=== PATIENT | female | born 1940 | race Caucasian/White ===

== ENCOUNTER 2019-05-31 09:46 | Observation (INO) | payer OTHER ==
[2019-05-31] MEDS ORDERED: AZITHROMYCIN 500 MG/250 ML BAG IV SCH (11:00)
[2019-05-31 11:02] LABS: Basophils % 0.4 % (0-1.3); Eosinophils % 0.6 % (0-4.4); Hematocrit 43.7 % (36.0-45.0); Lymphocytes % 9.5 % (15.3-44.8); MPV 11.1 fL (7.6-11.3); RBC Red Blood Cell Count 4.86 M/uL (3.86-4.86)
[2019-05-31 11:06] LABS: Protime INR 1.08
[2019-05-31] MEDS ORDERED: IPRATROPIUM BROM 0.5MG/2.5ML ONE (11:09)
[2019-05-31] MEDS ORDERED: LEVALBUTEROL 1.25 MG/3 ML NEB ONE (11:09)
[2019-05-31] MEDS ORDERED: NA CHLORIDE 0.9% 1,000 ML ONE (11:09)
[2019-05-31] MEDS ORDERED: METHYLPREDNISOLONE 125 MG INJ ONE (11:09)
[2019-05-31 11:13] LABS: ALT/SGPT 48 U/L (12-78); AST/SGOT 48 U/L (15-37); Albumin 3.7 g/dL (3.4-5.0); Alkaline Phosphatase 100 U/L (45-117); BUN Blood Urea Nitrogen 12 mg/dL (7-18); Bicarbonate 29 mmol/L (21-32); Bilirubin Direct 0.2 mg/dL (0-0.2); Bilirubin Total 0.9 mg/dL (0.2-1.0); CKMB Creatine Kinase MB < 1.0 ng/mL (0.3-3.6); Creatine Phosphokinase 119 U/L (26-192); Glucose Level 210 mg/dL (74-106); Lipase 80 U/L (73-393); Magnesium 1.9 mg/dL (1.8-2.4); NT PRO-BNP 389 pg/mL (<450); Potassium 3.6 mmol/L (3.5-5.1); Protein, Total 7.2 g/dL (6.4-8.2); Sodium Level 139 mmol/L (136-145); Troponin (Emerg Dept Use Only) < 0.02 ng/mL (0.0-0.045)
[2019-05-31] MEDS ORDERED: CEFTRIAXONE/SWI 1gm 1 GM/10 ML SYR ONE (12:03)
--- NOTE | 2019-05-31 12:25 | RAD REPORT ---
EXAM DESCRIPTION: RAD - Chest Single View - 05/31/2019 11:11 am CLINICAL HISTORY: COUGH Chest pain. COMPARISON: <Comparisons> FINDINGS: Portable technique limits examination quality. The lungs are grossly clear. The heart is normal in size. No displaced fractures. IMPRESSION: No acute intrathoracic process suspected.
--- NOTE | 2019-05-31 13:09 | RAD REPORT ---
EXAM DESCRIPTION: CT - Chest For Pe Angio - 05/31/2019 12:48 pm CLINICAL HISTORY: Chest pain. COUGH COMPARISON: No comparisons TECHNIQUE: CT angiogram of the pulmonary arteries was performed with MIP. All CT scans are performed using dose optimization technique as appropriate and may include automated exposure control or mA/KV adjustment according to patient size. FINDINGS: No evidence of pulmonary thromboembolism. No acute aortic finding demonstrated. The lungs are mildly emphysematous but clear. Small hiatal hernia is seen. No significant pericardial or pleural fluid. No concerning bony finding. IMPRESSION: No evidence of pulmonary thromboembolism. Mild COPD.
--- NOTE | 2019-05-31 13:35 | EDPHYS ---
Physician Documentation [facility] Name: Harmony Rodriguez Age: 79 yrs Sex: Female : 1940 Arrival Date: 05/31/2019 Time: 09:49 Bed 6 Private MD: SRINIVAS ESPINO ED Physician Nohemi Cho HPI: 05/31 10:21 This 79 yrs old Female presents to ER via Wheelchair with complaints of ma2 Breathing Difficulty. 10:21 The patient has shortness of breath with light activity. Onset: The symptoms/episode ma2 began/occurred gradually, 2 day(s) ago. Duration: The symptoms are continuous. Associated signs and symptoms: Pertinent positives: productive cough, Pertinent negatives: chest pain, diaphoresis, dizziness, fever, hemoptysis, loss of consciousness. Severity of symptoms: At their worst the symptoms were moderate in the emergency department the symptoms are unchanged. The patient has not experienced similar symptoms in the past. Historical: - Allergies: 10:07 Codeine; iw 10:07 PENICILLINS; iw 10:07 Talwin; iw - Home Meds: 10:07 tramadol 50 mg Oral tab 1 tab every 4-6 hours [Active]; diclofenac sodium 50 mg oral iw TbEC as needed [Active]; famotidine 20 mg Oral tab [Active]; pravastatin 40 mg oral tab 1 tab once daily [Active]; metoprolol tartrate-hydrochlorothiazide oral 25 mg- 37.5 mg oral once daily [Active]; tizanidine 4 mg oral cap 3 times per day [Active]; Farxiga 5 mg oral tab 1 tab once daily [Active]; alpha lipoic acid 200 mg oral cap daily [Active]; - PMHx: 10:07 Diabetes - NIDDM; heart disease; Hypertension; iw - PSHx: 10:07 Tonsillectomy; Hysterectomy; Pulmonary Embolism after surgery; Right hip replacement; iw Back surgery; - Immunization history:: Adult Immunizations up to date. - Social history:: Smoking status: Patient/guardian denies using tobacco, Patient/guardian denies using alcohol, street drugs, The patient lives with family. - Ebola Screening: : Patient negative for fever greater than or equal to 101.5 degrees Fahrenheit, and additional compatible Ebola Virus Disease symptoms Patient denies exposure to infectious person Patient denies travel to an Ebola-affected area in the 21 days before illness onset No symptoms or risks identified at this time. - Family history:: not pertinent. ROS: 10:21 Constitutional: Negative for fever, chills, and weight loss. ma2 10:21 All other systems are negative. Exam: 10:21 Constitutional: This is a well developed, well nourished patient who is awake, alert, ma2 and in no acute distress. Head/Face: Normocephalic, atraumatic. Eyes: Pupils equal round and reactive to light, extra-ocular motions intact. Lids and lashes normal. Conjunctiva and sclera are non-icteric and not injected. Cornea within normal limits. Periorbital areas with no swelling, redness, or edema. ENT: Nares patent. No nasal discharge, no septal abnormalities noted. Tympanic membranes are normal and external auditory canals are clear. Oropharynx with no redness, swelling, or masses, exudates, or evidence of obstruction, uvula midline. Mucous membranes moist. Neck: Trachea midline, no thyromegaly or masses palpated, and no cervical lymphadenopathy. Supple, full range of motion without nuchal rigidity, or vertebral point tenderness. No Meningismus. Chest/axilla: Normal chest wall appearance and motion. Nontender with no deformity. No lesions are appreciated. Cardiovascular: Regular rate and rhythm with a normal S1 and S2. No gallops, murmurs, or rubs. Normal PMI, no JVD. No pulse deficits. Abdomen/GI: Soft, non-tender, with normal bowel sounds. No distension or tympany. No guarding or rebound. No evidence of tenderness throughout. 10:21 Respiratory: mild respiratory distress is noted, Respirations: normal, Breath sounds: rales, that are mild, wheezing: Vital Signs: 10:07 BP 173 / 85; Pulse 113; Resp 20 S; Temp 99.3(O); Pulse Ox 97% on R/A; Weight 86.18 kg; iw Height 5 ft. 5 in. (165.10 cm); Pain 8/10; 11:36 BP 131 / 67; Pulse 105; Resp 18; Pulse Ox 99% on Nebulizer Mask; ph 12:30 BP 147 / 86; Pulse 97; Resp 18; Pulse Ox 97% on R/A; ph 13:42 BP 128 / 98; Pulse 105; Resp 20; Pulse Ox 99% on R/A; ph 15:13 BP 140 / 63; Pulse 95; Resp 18; Temp 98.7; Pulse Ox 98% on R/A; ph 10:07 Body Mass Index 31.62 (86.18 kg, 165.10 cm) iw MDM: 10:01 Patient medically screened. il2 10:21 Differential diagnosis: Anemia Anxiety Reaction Bronchitis pneumonia, reactive airway ma2 disease. Antibiotic administration: The patient is discharged and will get outpatient antibiotics. 13:33 Data reviewed: vital signs, nurses notes. Counseling: I had a detailed discussion with [facility] the patient and/or guardian regarding: the historical points, exam findings, and any diagnostic results supporting the discharge/admit diagnosis, the presence of at least one elevated blood pressure reading (>120/80) during this emergency department visit, the need for outpatient follow up. ED course: discussed with dr. arriaza . ED course: will admit for possible pneumonia, cough and tachycardia . 05/31 10:21 Order name: Blood Culture Adult (2) [facility] 05/31 10:21 Order name: BMP [facility] 05/31 10:21 Order name: CBC with Diff [facility] 05/31 10:21 Order name: Ckmb [facility] 05/31 10:21 Order name: CPK [facility] 05/31 10:21 Order name: D-Dimer [facility] 05/31 10:21 Order name: Hepatic Function; Complete Time: 11:30 [facility] 05/31 10:21 Order name: Lipase; Complete Time: 11:30 [facility] 05/31 10:21 Order name: Magnesium; Complete Time: 11:30 [facility] 05/31 10:21 Order name: NT PRO-BNP; Complete Time: 11:30 [facility] 05/31 10:21 Order name: PT-INR; Complete Time: 11:30 [facility] 05/31 10:21 Order name: Ptt, Activated; Complete Time: 11:30 [facility] 05/31 10:21 Order name: Troponin (emerg Dept Use Only); Complete Time: 11:30 [facility] 05/31 10:23 Order name: Blood Culture [facility] 05/31 10:21 Order name: XRAY CXR (1 view); Complete Time: 12:45 [facility] 05/31 10:21 Order name: EKG; Complete Time: 10:24 ma2 05/31 10:23 Order name: Basic Metabolic Panel; Complete Time: 11:30 EDMS 05/31 10:23 Order name: CBC with Automated Diff; Complete Time: 11:30 EDMS 05/31 10:23 Order name: CKMB Creatine Kinase MB; Complete Time: 11:30 EDMS 05/31 10:23 Order name: Creatine Phosphokinase; Complete Time: 11:30 EDMS 05/31 10:23 Order name: D-Dimer; Complete Time: 11:30 EDMS 05/31 12:24 Order name: CT Chest For PE Angio; Complete Time: 13:11 ma2 05/31 14:04 Order name: Regular EDMS 05/31 10:21 Order name: Cardiac monitoring; Complete Time: 10:49 ma2 05/31 10:21 Order name: EKG - Nurse/Tech; Complete Time: 12:40 ma2 05/31 10:21 Order name: IV Saline Lock; Complete Time: 10:49 ma2 05/31 10:21 Order name: Labs collected and sent; Complete Time: 10:49 ma2 05/31 10:21 Order name: O2 Per Protocol; Complete Time: 10:49 ma2 05/31 10:21 Order name: O2 Sat Monitoring; Complete Time: 10:49 ma2 Administered Medications: 11:17 Drug: SOLU-Medrol 125 mg Route: IVP; Site: right antecubital; ph 12:38 Follow up: Response: No adverse reaction ph 11:17 Drug: AtroVENT Aerosol 0.5 mg Route: Inhalation; ph 11:18 Drug: Xopenex 1.25 mg Route: Inhalation; ph 12:39 Follow up: Response: No adverse reaction ph 11:19 Drug: NS 0.9% 1000 ml Route: IV; Rate: 1 bolus; Site: right antecubital; ph 12:30 Follow up: Response: No adverse reaction; IV Status: Completed infusion; IV Intake: ph 1000ml 11:30 Drug: AtroVENT Aerosol 0.5 mg Route: Inhalation; ph 11:50 Drug: AtroVENT Aerosol 0.5 mg Route: Inhalation; ph 12:36 Follow up: Response: No adverse reaction ph 11:55 Drug: Rocephin 1 grams Route: IV; Rate: calculated rate; Site: right antecubital; ph 12:10 Follow up: Response: No adverse reaction; IV Status: Completed infusion ph 13:35 Drug: AZITHromycin 500 mg Route: IVPB; Infused Over: 1 hrs; Site: right antecubital; ph 14:40 Follow up: Response: No adverse reaction; IV Status: Completed infusion ph 19:11 Not Given (Physician Discretion): Lovenox 80 mg Sub-Q once ph Disposition: 05/31/19 13:34 Hospitalization ordered by Nirmal Sweeney for Observation. Preliminary diagnosis are Pneumonia due to other specified infectious organisms, Tachycardia, unspecified. - Bed requested for Telemetry/MedSurg (observation). - Status is Observation. ph - Condition is Stable. - Problem is new. - Symptoms are unchanged. UTI on Admission? No Signatures: Dispatcher [employer] EDMS Cathy Haskins RN RN Nathalia Rodrigues RN RN Nohemi Cho MD MD ma2 Botello, Elizabeth eb Corrections: (The following items were deleted from the chart) 13:34 13:34 Hospitalization Ordered by Nirmal Sweeney MD for Observation. Preliminary ma2 diagnosis is Pneumonia due to other specified infectious organisms; Tachycardia, unspecified. Bed requested for Telemetry/MedSurg (observation). Status is Observation. Condition is Stable. Problem is new. Symptoms are unchanged. UTI on Admission? No. ma2 15:19 13:34 05/31/2019 13:34 Hospitalization Ordered by Nirmal Sweeney MD for Observation. eb Preliminary diagnosis is Pneumonia due to other specified infectious organisms; Tachycardia, unspecified. Bed requested for Telemetry/MedSurg (observation). Status is Observation. Condition is Stable. Problem is new. Symptoms are unchanged. UTI on Admission? No. ma2 15:47 15:19 05/31/2019 13:34 Hospitalization Ordered by Nirmal Sweeney MD for Observation. ph Preliminary diagnosis is Pneumonia due to other specified infectious organisms; Tachycardia, unspecified. Bed requested for Telemetry/MedSurg (observation). Status is Observation. Condition is Stable. Problem is new. Symptoms are unchanged. UTI on Admission? No. eb
--- NOTE | 2019-05-31 13:35 | ER ---
Nurse's Notes [facility] Name: Harmony Rodriguez Age: 79 yrs Sex: Female : 1940 Arrival Date: 05/31/2019 Time: 09:49 Bed 6 Private MD: SRINIVAS ESPINO Diagnosis: Pneumonia due to other specified infectious organisms;Tachycardia, unspecified Presentation: 05/31 10:02 Presenting complaint: Patient states: been feeling bad since Sunday, c/o nasal iw congestion, headache, low grade fever, productive cough, SOB started last night, also c/o pain to chest and back when coughing. Transition of care: patient was not received from another setting of care. Onset of symptoms was May 28, 2019. Risk Assessment: Do you want to hurt yourself or someone else? Patient reports no desire to harm self or others. Initial Sepsis Screen: Does the patient meet any 2 criteria? HR > 90 bpm. Does the patient have a suspected source of infection?. Care prior to arrival: None. 10:02 Method Of Arrival: Wheelchair iw 10:02 Acuity: NOEL 3 iw Historical: - Allergies: 10:07 Codeine; iw 10:07 PENICILLINS; iw 10:07 Talwin; iw - Home Meds: 10:07 tramadol 50 mg Oral tab 1 tab every 4-6 hours [Active]; diclofenac sodium 50 mg oral iw TbEC as needed [Active]; famotidine 20 mg Oral tab [Active]; pravastatin 40 mg oral tab 1 tab once daily [Active]; metoprolol tartrate-hydrochlorothiazide oral 25 mg- 37.5 mg oral once daily [Active]; tizanidine 4 mg oral cap 3 times per day [Active]; Farxiga 5 mg oral tab 1 tab once daily [Active]; alpha lipoic acid 200 mg oral cap daily [Active]; - PMHx: 10:07 Diabetes - NIDDM; heart disease; Hypertension; iw - PSHx: 10:07 Tonsillectomy; Hysterectomy; Pulmonary Embolism after surgery; Right hip replacement; iw Back surgery; - Immunization history:: Adult Immunizations up to date. - Social history:: Smoking status: Patient/guardian denies using tobacco, Patient/guardian denies using alcohol, street drugs, The patient lives with family. - Ebola Screening: : Patient negative for fever greater than or equal to 101.5 degrees Fahrenheit, and additional compatible Ebola Virus Disease symptoms Patient denies exposure to infectious person Patient denies travel to an Ebola-affected area in the 21 days before illness onset No symptoms or risks identified at this time. - Family history:: not pertinent. Screenin:47 Abuse screen: Denies threats or abuse. Denies injuries from another. Nutritional ph screening: No deficits noted. Tuberculosis screening: No symptoms or risk factors identified. Fall Risk None identified. Assessment: 10:30 General: Appears in no apparent distress. comfortable, well groomed, Behavior is calm, ph cooperative, appropriate for age, Denies fever. Pain: Denies pain. Neuro: Level of Consciousness is awake, alert, obeys commands, Oriented to person, place, time, situation. Cardiovascular: Reports shortness of breath, Denies chest pain, nausea, Capillary refill < 3 seconds in bilateral fingers Patient's skin is warm and dry. Rhythm is irregular. Respiratory: Reports shortness of breath at rest Airway is patent Respiratory effort is even, unlabored, Respiratory pattern is regular, symmetrical, Breath sounds are clear bilaterally. GI: No signs and/or symptoms were reported involving the gastrointestinal system. Derm: Skin is intact, is healthy with good turgor, Skin is pink, warm \T\ dry. Musculoskeletal: Circulation, motion, and sensation intact. Range of motion: intact in all extremities. 11:30 Reassessment: Patient appears in no apparent distress at this time. Patient and/or ph family updated on plan of care and expected duration. Pain level reassessed. Patient is alert, oriented x 3, equal unlabored respirations, skin warm/dry/pink. Patient states symptoms have improved. 12:30 Reassessment: Patient appears in no apparent distress at this time. No changes from previously documented assessment. Patient and/or family updated on plan of care and expected duration. Pain level reassessed. Patient is alert, oriented x 3, equal unlabored respirations, skin warm/dry/pink. 13:41 Reassessment: Patient appears in no apparent distress at this time. Patient and/or ph family updated on plan of care and expected duration. Pain level reassessed. Patient is alert, oriented x 3, equal unlabored respirations, skin warm/dry/pink. Dr Farias at bedside to speak w/ pt. 14:23 Reassessment: Patient appears in no apparent distress at this time. Patient is alert, ca1 oriented x 3, equal unlabored respirations, skin warm/dry/pink. Ambulated to restroom with steady gait. Pt tolerated well. No c/o of shortness of breath. 14:35 Reassessment: Patient appears in no apparent distress at this time. Patient and/or ph family updated on plan of care and expected duration. Pain level reassessed. Patient is alert, oriented x 3, equal unlabored respirations, skin warm/dry/pink. Report called to MAGNOLIA Waggoner, pt to be taken to 4th floor via wheelchair. Vital Signs: 10:07 BP 173 / 85; Pulse 113; Resp 20 S; Temp 99.3(O); Pulse Ox 97% on R/A; Weight 86.18 kg; iw Height 5 ft. 5 in. (165.10 cm); Pain 8/10; 11:36 BP 131 / 67; Pulse 105; Resp 18; Pulse Ox 99% on Nebulizer Mask; ph 12:30 BP 147 / 86; Pulse 97; Resp 18; Pulse Ox 97% on R/A; ph 13:42 BP 128 / 98; Pulse 105; Resp 20; Pulse Ox 99% on R/A; ph 15:13 BP 140 / 63; Pulse 95; Resp 18; Temp 98.7; Pulse Ox 98% on R/A; ph 10:07 Body Mass Index 31.62 (86.18 kg, 165.10 cm) iw ED Course: 09:49 Patient arrived in ED. mr 09:49 OOT, OOT is Private Physician. mr 09:52 Arcadio Pineda, MAGNOLIA is Primary Nurse. bp 10:01 Nohemi Cho MD is Attending Physician. ma2 10:04 Triage completed. iw 10:07 Arm band placed on. iw 10:40 Initial lab(s) drawn, by me, sent to lab. First set of blood cultures drawn by me. ph Inserted saline lock: 20 gauge in right antecubital area, using aseptic technique. Blood collected. 10:48 Patient has correct armband on for positive identification. Placed in gown. Bed in low ph position. Call light in reach. Side rails up X 1. medical microbiologist on. Pulse ox on. NIBP on. Door closed. Noise minimized. Warm blanket given. Head of bed elevated. 11:15 XRAY CXR (1 view) In Process Unspecified. EDMS 12:48 CT completed. Patient tolerated procedure well. Patient moved back from CT. mw3 12:49 CT Chest For PE Angio In Process Unspecified. EDMS 13:34 Nirmal Sweeney MD is Hospitalizing Provider. ma2 15:45 No provider procedures requiring assistance completed. Patient admitted, IV remains in ph place. Administered Medications: 11:17 Drug: SOLU-Medrol 125 mg Route: IVP; Site: right antecubital; ph 12:38 Follow up: Response: No adverse reaction ph 11:17 Drug: AtroVENT Aerosol 0.5 mg Route: Inhalation; ph 11:18 Drug: Xopenex 1.25 mg Route: Inhalation; ph 12:39 Follow up: Response: No adverse reaction ph 11:19 Drug: NS 0.9% 1000 ml Route: IV; Rate: 1 bolus; Site: right antecubital; ph 12:30 Follow up: Response: No adverse reaction; IV Status: Completed infusion; IV Intake: ph 1000ml 11:30 Drug: AtroVENT Aerosol 0.5 mg Route: Inhalation; ph 11:50 Drug: AtroVENT Aerosol 0.5 mg Route: Inhalation; ph 12:36 Follow up: Response: No adverse reaction ph 11:55 Drug: Rocephin 1 grams Route: IV; Rate: calculated rate; Site: right antecubital; ph 12:10 Follow up: Response: No adverse reaction; IV Status: Completed infusion ph 13:35 Drug: AZITHromycin 500 mg Route: IVPB; Infused Over: 1 hrs; Site: right antecubital; ph 14:40 Follow up: Response: No adverse reaction; IV Status: Completed infusion ph 19:11 Not Given (Physician Discretion): Lovenox 80 mg Sub-Q once ph Intake: 12:30 IV: 1000ml; Total: 1000ml. ph Outcome: 13:34 Decision to Hospitalize by Provider. ma2 15:46 Admitted to Tele accompanied by tech, family with patient, via wheelchair, room 402, ph with chart, Report called to Edilson Walls RN 15:46 Condition: stable 15:46 Instructed on the need for admit. 15:47 Patient left the ED. ph Signatures: Dispatcher [employer] RICARDA De Anda Megan mr Cathy Haskins, RN RN iw Nathalia Rodrigues RN RN ph Arcadio Pineda RN RN bp Nohemi Cho MD MD sd2 Gilda Johnson 3 Kiesha Yoder RN RN ca1 Corrections: (The following items were deleted from the chart) 19:14 15:13 BP 140 / 63; Pulse 95bpm; Resp 18bpm; Pulse Ox 98% RA; ph ph
[2019-05-31] MEDS ORDERED: ALBUTEROL 2.5 MG/3 ML NEB SOL NEB PRN (13:58)
[2019-05-31] MEDS ORDERED: ACETAMINOPHEN 500 MG TAB PO PRN (13:58)
[2019-05-31] MEDS ORDERED: ONDANSETRON 4 MG (ODT) TAB PO PRN (13:58)
[2019-05-31] MEDS: IPRATROPIUM BROM 0.5MG/2.5ML NEB SCH ×2 (14:00→20:10)
--- NOTE | 2019-05-31 14:22 | P.HP ---
Certification for Inpatient With expected LOS: <2 Midnights Practitioner: I am a practitioner with admitting privileges, knowledge of patient current condition, hospital course, and medical plan of care. Services: Services provided to patient in accordance with Admission requirements found in Title 42 Section 412.3 of the Code of Federal Regulations Patient History Date of Service: 05/31/19 (Hospitalist) Reason for admission: Shortness of breath chest congestion History of Present Illness: Patient is 79 years of age with a history of COPD although she has never smoked with intermittent exacerbation for having worsening shortness of breath chest congestion for the past 3 days she has tenderness status exacerbation for the past 20 years patient uses inhaler on an intermittent basis denies any fever or chills. It all started with the congestion in her head Allergies pentazocine lactate [From [place]] Allergy (Verified 07/11/14 15:28) Shortness of breath Penicillins Adverse Reaction (Verified 07/11/14 15:28) Nausea/Vomiting Home Medications: Alpha Lipoic Acid 50 mg PO DAILY 07/11/14 Azelastine HCl [Astepro] 2 sprays NS DAILY 07/11/14 Cetirizine HCl [All Day Allergy] 10 mg PO DAILY 07/11/14 Diclofenac Na [Voltaren] 50 mg PO BID PRN 07/11/14 Fluticasone [Flonase 50MCG Nasal [place]*] 2 sprays NS DAILY 07/11/14 Metformin HCl [Metformin ER Osmotic] 500 mg PO BID 07/11/14 Pravastatin Sodium [Pravachol] 20 mg PO DAILY 07/11/14 Tramadol HCl [Ultram] 50 mg PO DAILY 07/11/14 Triamterene/Hydrochlorothiazid [Triamterene-Hctz 37.5-25 mg Tb] 1 each PO DAILY 07/11/14 Hydrocodone Bit/Acetaminophen [[place] 10-325 Tablet] 1 each PO Q6H PRN #30 tablet 07/12/14 - Past Medical/Surgical History Diabetic: Yes -: htn -: copd -: heart disease -: Diabetes -: hip replacement -: bck sx - Social History Alcohol use: No CD- Drugs: No Caffeine use: Yes Review of Systems 10-point ROS is otherwise unremarkable General: Weakness Respiratory: Cough, Shortness of Breath Physical Examination - Vital Signs Temperature: 99.3 F Blood Pressure: 173/85 Pulse: 113 Respirations: 20 Pulse Ox (%): 97 - Physical Exam General: Alert, Oriented x3, Mild distress Respiratory: Expiratory wheezes Cardiovascular: No edema, Normal pulses Gastrointestinal: Normal bowel sounds, Soft and benign Musculoskeletal: No clubbing, No swelling - Studies Laboratory Data (last 24 hrs) 05/31/19 10:40: PT 12.7 H, INR 1.08, APTT 27.4 05/31/19 10:40: WBC 10.9, Hgb 14.3, Hct 43.7, Plt Count 140 L 05/31/19 10:40: Sodium 139, Potassium 3.6, BUN 12, Creatinine 1.19, Glucose 210 H, Magnesium 1.9, Total Bilirubin 0.9, AST 48 H, ALT 48, Alkaline Phosphatase 100, Lipase 80 Assessment and Plan - Problems (Diagnosis) (1) COPD exacerbation Current Visit: Yes Status: Acute Plan: Patient is 79 years of age admitted with shortness of breath chest congestion has underlying history of COPD although she has never smoked CT pulmonary angiogram is negative chest x-rays clear chemistries unremarkable she will be admitted here for observation treat with steroids bronchodilators and will benefit from a home bronchodilator including outpatient pulmonary function testing - Advance Directives Does patient have a Living Will: No Does patient have a Durable POA for Healthcare: No
[2019-05-31 16:04] VITALS: BMI 32.5
[2019-05-31] MEDS: METHYLPREDNISOLONE 40 MG INJ IV SCH (16:34)
[2019-05-31] MEDS: INSULIN -REGULAR HUMAN 50 UNIT/0.5 ML ML SQ SCH ×2 (16:35→21:08)
[2019-05-31 17:56] LABS: Urine Appearance CLEAR; Urine Bilirubin NEGATIVE (NEG); Urine Blood NEGATIVE (NEG); Urine Color YELLOW; Urine Glucose 3+ (NEG); Urine Protein NEGATIVE (NEG); Urine Specific Gravity >=1.030 (1.005-1.030); Urine pH 6.5 (5.0-7.0)
[2019-05-31 18:00] LABS: Urine Microscopic Reflex NO UMIC
[2019-05-31] MEDS ORDERED: TRAMADOL HCL 50 MG TAB PO SCH (21:00)
[2019-05-31] MEDS: DULERA 200/5 (MOMETASONE/FORMOTEROL) INHALER IH SCH (21:00)
[2019-05-31] MEDS: TIZANIDINE 4 MG TABLET PO SCH (22:33)
[2019-05-31 23:36] VITALS: O2SAT 96
[2019-06-01] MEDS: METHYLPREDNISOLONE 40 MG INJ IV SCH ×2 (01:13→08:14)
[2019-06-01] MEDS: IPRATROPIUM BROM 0.5MG/2.5ML NEB SCH ×3 (02:10→14:05)
[2019-06-01 06:32] LABS: Potassium 3.7 mmol/L (3.5-5.1)
[2019-06-01 06:45] LABS: Absolute Lymphocytes (CBC) 1.4 K/uL (0.7-4.9); Basophils % 0.2 % (0-1.3); Hematocrit 41.5 % (36.0-45.0); Lymphocytes % 12.7 % (15.3-44.8); MPV 11.4 fL (7.6-11.3); Monocytes % 5.2 % (3.3-12.3); RBC Red Blood Cell Count 4.69 M/uL (3.86-4.86)
[2019-06-01] MEDS: TIZANIDINE 4 MG TABLET PO SCH (08:13)
[2019-06-01] MEDS: DULERA 200/5 (MOMETASONE/FORMOTEROL) INHALER IH SCH (08:15)
[2019-06-01] MEDS: INSULIN -REGULAR HUMAN 50 UNIT/0.5 ML ML SQ SCH ×2 (08:16→11:31)
--- NOTE | 2019-06-01 08:45 | EKG ---
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
[2019-06-01] MEDS ORDERED: METFORMIN ER 500 MG TAB PO SCH (09:00)
--- NOTE | 2019-06-01 09:43 | P.DS ---
Admission Date: 05/31/19 Discharge Date: 06/01/19 Disposition: ROUTINE DISCHARGE Reason for Admission: Shortness of breath chest congestion - Problems (1) COPD exacerbation Current Visit: Yes Status: Acute Brief History of Present Illness: Patient is 79 years of age with a history of COPD although she has never smoked with intermittent exacerbation for having worsening shortness of breath chest congestion for the past 3 days she has tenderness status exacerbation for the past 20 years patient uses inhaler on an intermittent basis denies any fever or chills. It all started with the congestion in her head Hospital Course: Patient did well admitted with COPD exacerbation and be discharged home on a bronchodilator resume all other home meds no evidence of pneumonia Vital Signs/Physical Exam: Temp Pulse Resp BP Pulse Ox 98.4 F 84 18 171/72 H 96 06/01/19 08:00 06/01/19 08:00 06/01/19 08:00 06/01/19 08:00 06/01/19 08:00 Laboratory Data at Discharge: WBC 10.7 K/uL (4.3-10.9) 06/01/19 05:40 Hgb 14.2 g/dL (12.0-15.0) 06/01/19 05:40 Hct 41.5 % (36.0-45.0) 06/01/19 05:40 Plt Count 156 K/uL (152-406) 06/01/19 05:40 PT 12.7 SECONDS (9.5-12.5) H 05/31/19 10:40 INR 1.08 05/31/19 10:40 APTT 27.4 SECONDS (24.3-36.9) 05/31/19 10:40 Sodium 140 mmol/L (136-145) 06/01/19 05:40 Potassium 3.7 mmol/L (3.5-5.1) 06/01/19 05:40 BUN 16 mg/dL (7-18) 06/01/19 05:40 Creatinine 1.18 mg/dL (0.55-1.3) 06/01/19 05:40 Glucose 225 mg/dL (74-106) H 06/01/19 05:40 Magnesium 1.9 mg/dL (1.8-2.4) 05/31/19 10:40 Total Bilirubin 0.9 mg/dL (0.2-1.0) 05/31/19 10:40 AST 48 U/L (15-37) H 05/31/19 10:40 ALT 48 U/L (12-78) 05/31/19 10:40 Alkaline Phosphatase 100 U/L (45-117) 05/31/19 10:40 Lipase 80 U/L (73-393) 05/31/19 10:40 Home Medications: Alpha Lipoic Acid 200 mg PO DAILY 07/11/14 Cetirizine HCl [All Day Allergy] 10 mg PO DAILY 07/11/14 Fluticasone [Flonase 50MCG Nasal [facility]*] 2 sprays NS DAILY 07/11/14 Pravastatin Sodium [Pravachol] 40 mg PO DAILY 07/11/14 Tramadol HCl [Ultram] 50 mg PO BEDTIME 07/11/14 Triamterene/Hydrochlorothiazid [Triamterene-Hctz 37.5-25 mg Tb] 1 each PO DAILY 07/11/14 Famotidine [Pepcid*] 20 mg PO DAILY 05/31/19 Glimepiride 1 mg PO BID 05/31/19 Ibuprofen 50 mg PO DAILY PRN 05/31/19 Metoprolol Tartrate [Lopressor*] 1 tab PO DAILY 05/31/19 Tizanidine [Zanaflex*] 2 mg PO BID 05/31/19 Fluticasone/Salmeterol [Advair 250-50 Diskus] 1 each IH BID #1 blst.w.dev New Medications: Fluticasone/Salmeterol [Advair 250-50 Diskus] 1 each IH BID #1 blst.w.dev Patient Discharge Instructions: Please give patient the Dulera 2 puffs twice a day Diet: Regular Activity: Ad catherine Followup: Nirmal Sweeney MD [Primary Care Provider] -
[2019-06-01 12:24] VITALS: BP 140/62; TEMP 97.9
== END 2019-06-01 15:15 | disposition home or self-care (01) ==
LOC: ER 09:46 → SUPCPDRO 09:46 → ERHOLD 14:11 → 4TH 15:36
PROVIDERS: ADMIT Internal Medicine Sleep Medicine; ATTEND Internal Medicine Sleep Medicine
DX: J44.1 Chronic obstructive pulmonary disease with (acute) exacerbation (principal); I10 Essential (primary) hypertension; E11.9 Type 2 diabetes mellitus without complications; Z96.649 Presence of unspecified artificial hip joint; Z88.0 Allergy status to penicillin
CPT/HCPCS: 96365; 96361; 93005; 87040 ×2; 87088; 85025 ×2; 80048 ×2; 36415; 83735; 82550; 85610; 82962 ×4; 85379; 80076; 85730; 81003; 84484; 82553; 83690; 83880; 71275; 71045; 94760; 96375; 99285; Q9967; J0456; J0696; J7030; J2930; J2920 ×3; G0378 ×2; 87086; J7606

== ENCOUNTER 2023-06-26 17:34 | Emergency (ER) | payer OTHER ==
--- OUTSIDE RECORDS SUMMARY | 2023-06-26 17:42 | XMS REPORT | Continuity of Care Document ---
:1940 Author Organization [facility] t Address [address] [place] [id number] Care Team Providers Name Role Phone PCP, PATIENT DOES NOT HAVE A Primary Care Physician UnavailJESUS Mason Attending Clinician Unavailable DB KING Attending Clinician Unavailable LAB90 Attending Clinician Unavailable NEHA JENKINS Attending Clinician Unavailable Haseeb_Иван Attending Clinician Unavailable [facility] Attending Clinician Unavailable Unknown, Attending Attending Clinician Unavailable DAREN LI Attending Clinician Unavailable Levins_J Attending Clinician Unavailable Shahid_S Admitting Clinician Unavailable Levins_J Admitting Clinician Unavailable Payers Payer Name Policy Type Policy Number Effective Date Expiration Date Иван garzon [employer] TXP 7 [id number] 2023 CLASSIC NO PREMIUM 00:00:00 R2T [facility] - [id number] [employer] (MEDICARE 00:00:00 REPLACEMENT/ADVANT AGE - HMO) [place] [place] - [id number] 2019 [employer] 00:00:00 (MEDICARE REPLACEMENT/ADVANT AGE - HMO) Problems Condition Condition Condition Status Onset Resolution Last Treating Co mments Source Name Details Category Date Date Treatment Clinician Date Arthritis Arthritis Disease Active Reji sey of left of left 5-30 Seybold hip hip 00:00: - 00 Externa l Immunodefi Immunodefi Disease Active K elsey ciency due ciency due 4-10 Se ybold to to 00:00: - conditions conditions 00 Ex terna classified classified l elsewhere elsewhere Risk for Risk for Disease Active Kelse y falls falls 3-30 Seybold 00:00: - 00 Externa l 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 3-30 Seybol d mellitus mellitus 00:00: - with with 00 Externa hyperglyce hyperglyce l juan, juan, without without long-term long-term current current use of use of insulin insulin Hypertensi Hypertensi Disease Active Ce núñez on on 3-30 Seybold 00:00: - 00 Externa l Well adult Well adult Disease Active Ce núñez exam exam 3 Seybold 00:00: - 00 Externa l Primary Primary Disease Active Patti osteoarthr osteoarthr 3-30 Se ybold itis of itis of 00:00: - both knees both knees 00 Ex terna l Primary Primary Disease Active Patti osteoarthr osteoarthr 3 Se ybold itis of itis of 00:00: - both hips both hips 00 Exte rna l Chronic Chronic Disease Active Patti bilateral bilateral 3-30 Seyb old low back low back 00:00: - pain pain 00 Externa without without l sciatica sciatica Gastroesop Gastroesop Disease Active Ce cassierae hageal hageal 3-30 Seybold reflux reflux 00:00: - disease disease 00 Externa without without l esophagiti esophagiti s s Seasonal Seasonal Disease Active Kelse y allergic allergic 330 Seybol d rhinitis rhinitis 00:00: - due to due to 00 Externa pollen pollen l 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 Papillomav 00:00: Pr actic irus irus 00 e infection Infection Spondyliti Spondyliti Problem Active [facility] s s 8-17 Family 00:00: Practic 00 e Hyperlipid Hyperlipid Problem Active [facility] emia emia 4-10 Family 00:00: Practic 00 e 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 2-25 Fa perico erosis erosis 00:00: Practic 00 e 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 Family associated Associated 00:00: Pr actic with with 00 e another Another disorder Disorder Hypertensi Hypertensi Problem Active 2019-11 [facility] ve renal ve Renal 0-26 Family disease Disease 00:00: Practic 00 e Disorder 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 System Due 00:00: Pr actic to type 2 to Type 2 00 e diabetes Diabetes mellitus Mellitus Opioid Opioid Problem Active [facility] dependence Dependence 2-11 Fa perico 00:00: Practic 00 e 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 Infarction 00:00: Pr actic 00 e 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 00:00: Practic 00 e Allergic Allergic Problem Active [facility] rhinitis Rhinitis 11 Family 00:00: Practic 00 e Asthma Asthma Problem Active [facility] 2-11 Family 00:00: Practic 00 e Allergies, Adverse Reactions, Alerts Allergy Allergy Status Severity Reaction(s) Onset Inactive Treating Comm ents Source Name Type Date Date Clinician Metformi Propensi Active Other Patti n ty to 3-30 reaction( Seybold adverse 00:00: s): - reaction 00 Abdominal Exter na s Pain l Penicill Propensi Active Patti ins ty to 3-29 Seybold adverse 00:00: - reaction 00 Externa s l Codeine Allergy Active Nausea Village to 6-29 Family substanc 00:00: Practic e 00 e PENICILL Allergy Active [facility] INS to 6-29 Family substanc 00:00: Practic e 00 e Codeine Propensi Active Nausea Only Ke lsey ty to 2-11 Seybold adverse 00:00: - reaction 00 Externa s l Pentazoc Propensi Active Other Other Patti ine ty to 8-16 reaction( Seybold adverse 00:00: s): - reaction 00 Shortness Exter na s of breath l Talwin Allergy Active Moderate Other Village to Family substanc Practic e e Metformi Allergy Active Abdominal Vill age n to pain Family substanc Practic e e NO KNOWN Drug Active [facility] Social History Social Habit Start Date Stop Date Quantity Comments Source Gender identity Patti garrido - External Sexual orientation Patti Hare - External Alcohol intake 2023-05-22 2023-05-22 Lifetime Patti casillas 00:00:00 00:00:00 non-drinker - External (finding) Education 2023-02-22 2023-02-22 17 Patti Hare 00:00:00 00:00:00 - External Tobacco use and 2023-02-22 2023-02-22 Smokeless tobacco Ke ermias Hare exposure 00:00:00 00:00:00 non-user - External History of Social 2023-02-22 2023-02-22 Patti Hare function 00:00:00 00:00:00 - External Sex [birth year] Patti garrido 00:00:00 00:00:00 - External Smoking Status Start Date Stop Date Source Never smoked tobacco Patti Palma old - External Medications Ordered Filled Start Stop Current Ordering Indication Dosage Frequency Signature Comments Components Source Medication Medication Date Date Medication? Clinician (SIG) Name Name IBUPROFEN Yes Take by Kelse y OR 7-03 mouth Seybold 14:46: - 39 Externa l Montelukast Yes 10mg Take 1 Ana ey (SINGULAIR) - tablet (10 Se ybold 10 MG oral 14:45: mg total) - Tablet 58 by mouth Externa tablet daily l Acetaminoph Yes [id number] 1300mg Q.5D Take 2 Patti en 650 MG 7-03 tablets Seybold oral Tab CR 14:43: (1,300 mg - 19 total) by Externa mouth 2 l times daily as needed Cholecalcif Yes 1{capsu Take 1 K elsey sam (D3 7-03 le} capsule by Seybo ld 5000) 125 14:43: mouth - MCG (5000 19 daily Externa UT) oral l Capsule Cinnamon Yes 500mg Take 500 Ana ey 500 MG oral 7-03 mg by Seybold Capsule 14:43: mouth - 19 daily Externa l Magnesium Yes Take by Kelse y 400 MG oral 7-03 mouth Seybold Capsule 14:43: - 19 Externa l Famotidine 0 2022- No 20mg Take 1 Naa ey (PEPCID) 20 05-22 tablet (20 S eybold MG oral 15:29: 00:00 mg total) - tablet 59 :00 by mouth 2 Externa times l daily Montelukast 2022- No [id number] 10mg Take 1 Patti (SINGULAIR) -22 05- tablet (10 S eybold 10 MG oral 15:29: 00:00 mg total) - Tablet 17 :00 by mouth Externa tablet nightly l Tizanidine 2022- No 4mg Q.25D Take 1 Reji sey HCl 4 MG -05-22 tablet (4 Seybo ld oral Tablet 15:28: 00:00 mg total) - 56 :00 by mouth Externa every 6 l hours as needed for muscle spasms Tramadol 2022- No 50mg Q.25D Take 1 Kelse y HCl -22 05- tablet (50 Seybold (ULTRAM) 50 15:28: 00:00 mg total) - MG oral 50 :00 by mouth Externa Tablet every 6 l hours as needed for pain GlipiZIDE 5 2022- No [id number] 5mg Take 1 Patti MG oral -05-22 tablet (5 Seybol d TABLET SR 15:21: 00:00 mg total) - 24 HR 41 :00 by mouth Externa daily l Metoprolol Yes [id number] 25mg Take 1 K elsey Tartrate - tablet (25 Seybo ld (LOPRESSOR) 00:00: mg total) - 25 MG oral 00 by mouth Exter na Tablet daily l Omeprazole 2022-0 Yes [id number] 40mg Take 1 Patti 40 MG oral -27 capsule Seybol d Delayed 00:00: (40 mg - Release 00 total) by Externa Capsule mouth l daily GlipiZIDE 2022-0 Yes [id number] 10mg Take 1 Patti 10 MG oral -27 3 tablet (10 Sey bold TABLET SR 00:00: mg total) - 24 HR 00 by mouth Externa daily l Amlodipine 2022-0 Yes [id number] 10mg Take 1 K elsey Besylate 10 - tablet (10 Se ybold MG oral 00:00: mg total) - Tablet 00 by mouth Externa daily l Famotidine 0 Yes [id number] 20mg QD Take 1 Patit (PEPCID) 20 6-27 tablet (20 Se ybold MG oral 00:00: mg total) - tablet 00 by mouth Externa nightly as l needed for heartburn Metoprolol 2022-0 Yes [id number] 25mg Take 1 K elsey Tartrate 6-27 tablet (25 Seybo ld (LOPRESSOR) 00:00: mg total) - 25 MG oral 00 by mouth Exter na Tablet daily l Omeprazole 2022-0 Yes [id number] 40mg Take 1 Patti 40 MG oral 6-27 capsule Seybol d Delayed 00:00: (40 mg - Release 00 total) by Externa Capsule mouth l daily GlipiZIDE 2022-0 Yes [id number] 10mg Take 1 Patti 10 MG oral 6-27 3 tablet (10 Sey bold TABLET SR 00:00: mg total) - 24 HR 00 by mouth Externa daily l Amlodipine 2022-0 Yes [id number] 10mg Take 1 K elsey Besylate 10 6-27 tablet (10 Se ybold MG oral 00:00: mg total) - Tablet 00 by mouth Externa daily l Famotidine 2022-0 Yes [id number] 20mg QD Take 1 Patti (PEPCID) 20 6-27 tablet (20 Se ybold MG oral 00:00: mg total) - tablet 00 by mouth Externa nightly as l needed for heartburn Cinnamon 2022-0 Yes 500mg Take 500 Ana ey 500 MG oral 6-22 mg by Seybold Capsule 14:09: mouth - 22 daily Externa l Magnesium 2022-0 Yes Take by Kelse y 400 MG oral 6-22 mouth Seybold Capsule 14:09: - 22 Externa l Pravastatin 2022-0 Yes 40mg Take 1 Ana ey Sodium 40 6-22 tablet (40 Seyb old MG oral 00:00: mg total) - Tablet 00 by mouth Externa daily l Pravastatin 2022-0 Yes 40mg Take 1 Ana ey Sodium 40 6-22 tablet (40 Seyb old MG oral 00:00: mg total) - Tablet 00 by mouth Externa daily l Metoprolol 2022-0 2023- No [id number] 25mg Take 1 Patti Tartrate 6-22 06-27 tablet (25 Seyb old (LOPRESSOR) 00:00: 00:00 mg total) - 25 MG oral 00 :00 by mouth Exter na Tablet daily l Pioglitazon 2022-0 Yes [id number] 30mg Take 1 Patti e HCl 30 MG 6-08 tablet (30 Se ybold oral Tablet 00:00: mg total) - 00 by mouth Externa daily l Pioglitazon 2022-0 Yes [id number] 30mg Take 1 Patti e HCl 30 MG 6-08 tablet (30 Se ybold oral Tablet 00:00: mg total) - 00 by mouth Externa daily l Pioglitazon 2022-0 2023- No [id number] 15mg Take 1 Patti e HCl 15 MG 5-30 05-30 tablet (15 S eybold oral Tablet 13:25: 00:00 mg total) - 51 :00 by mouth Externa daily l GlipiZIDE 5 2022-0 Yes [id number] 5mg Take 1 Patti MG oral 5-30 tablet (5 Seybold TABLET SR 13:20: mg total) - 24 HR 19 by mouth Externa daily l Montelukast 2022-0 Yes [id number] 10mg Take 1 Patti (SINGULAIR) 5-30 tablet (10 Se ybold 10 MG oral 13:20: mg total) - Tablet 19 by mouth Externa tablet nightly l Acetaminoph 2022-0 Yes [id number] 1300mg Q.5D Take 2 Patti en 650 MG 5-30 tablets Seybold oral Tab CR 13:20: (1,300 mg - 19 total) by Externa mouth 2 l times daily as needed Tizanidine 2022-0 Yes 4mg Q.25D Take 1 Ana ey HCl 4 MG 5-30 tablet (4 Seybol d oral Tablet 13:20: mg total) - 19 by mouth Externa every 6 l hours as needed for muscle spasms Cholecalcif 2022-0 Yes 1{capsu Take 1 K elsey sam (D3 5-30 le} capsule by Seybo ld 5000) 125 13:20: mouth - MCG (5000 19 daily Externa UT) oral l Capsule Famotidine 2022-0 Yes 20mg Take 1 Kelse y (PEPCID) 20 5-30 tablet (20 Se ybold MG oral 13:20: mg total) - tablet 19 by mouth 2 Externa times l daily Tramadol 2023-0 Yes 50mg Q.25D Take 1 Patti HCl 5-30 tablet (50 Seybold (ULTRAM) 50 13:20: mg total) - MG oral 19 by mouth Externa Tablet every 6 l hours as needed for pain Acetaminoph Yes [id number] 1300mg Q.5D Take 2 Patti en 650 MG 5-30 tablets Seybold oral Tab CR 13:20: (1,300 mg - 19 total) by Externa mouth 2 l times daily as needed Cholecalcif Yes 1{capsu Take 1 K elsey sam (D3 5-30 le} capsule by Seybo ld 5000) 125 13:20: mouth - MCG (5000 19 daily Externa UT) oral l Capsule Pioglitazon Yes [id number] 30mg Take 1 Patti e HCl 30 MG 5-30 tablet (30 Se ybold oral Tablet 00:00: mg total) - 00 by mouth Externa daily l Bilateral 2022- No [id number] 80mg Ke lsey Injection: 5-25 05-25 Seybold Methylpredn 15:45: 20:03 - isolone 00 :00 Externa Acetate l (Depo-Medro l) 40 mg/ml, 80mg - Physician Administere d (J1030) Bilateral 2022- No [id number] 80mg 80 mg, Patti Injection: 5-25 05-25 Physician Sey bold Methylpredn 15:45: 20:03 Administer - isolone 00 :00 ed, ONCE, Externa Acetate 1 dose, On l (Depo-Medro Yudy l) 40 04/19/23 at mg/ml, 80mg 1045 - Physician Administere d (J1030) GlipiZIDE 5 Yes [id number] 5mg Take 1 Patti MG oral 5-25 tablet (5 Seybold TABLET SR 10:09: mg total) - 24 HR 25 by mouth Externa daily l Montelukast Yes [id number] 10mg Take 1 Patti (SINGULAIR) 5-25 tablet (10 Se ybold 10 MG oral 10:09: mg total) - Tablet 25 by mouth Externa tablet nightly l Acetaminoph Yes [id number] 1300mg Q.5D Take 2 Patti en 650 MG 5-25 tablets Seybold oral Tab CR 10:09: (1,300 mg - 25 total) by Externa mouth 2 l times daily as needed Pioglitazon 2022-0 Yes [id number] 15mg Take 1 Patti e HCl 15 MG 5-25 tablet (15 Se ybold oral Tablet 10:09: mg total) - 25 by mouth Externa daily l hydroCHLORO 2022-0 Yes [id number] 12.5mg Take 1 Patti thiazide 5-10 tablet Seybold 12.5 MG 00:00: (12.5 mg - oral Tablet 00 total) by Ext zeus mouth l daily Metoprolol 2022-0 Yes [id number] 25mg Take 1 K elsey Tartrate 5-10 tablet (25 Seybo ld (LOPRESSOR) 00:00: mg total) - 25 MG oral 00 by mouth Exter na Tablet daily l Omeprazole 2022-0 Yes [id number] 40mg Take 1 Patti 40 MG oral 5-10 capsule Seybol d Delayed 00:00: (40 mg - Release 00 total) by Externa Capsule mouth l daily hydroCHLORO 2022-0 Yes [id number] 12.5mg Take 1 Patti thiazide 5-10 tablet Seybold 12.5 MG 00:00: (12.5 mg - oral Tablet 00 total) by Ext zeus mouth l daily Metoprolol 2022-0 Yes [id number] 25mg Take 1 K elsey Tartrate 5-10 tablet (25 Seybo ld (LOPRESSOR) 00:00: mg total) - 25 MG oral 00 by mouth Exter na Tablet daily l Omeprazole 2022-0 Yes [id number] 40mg Take 1 Patti 40 MG oral 5-10 capsule Seybol d Delayed 00:00: (40 mg - Release 00 total) by Externa Capsule mouth l daily hydroCHLORO 3-0 2023- No [id number] 12.5mg Take 1 Patti thiazide 5-10 06-27 tablet Seybold 12.5 MG 00:00: 00:00 (12.5 mg - oral Tablet 00 :00 total) by Ext zeus mouth l daily Omeprazole 3-0 2023- No [id number] 40mg Take 1 Patti 40 MG oral 5-10 06-27 capsule Seybo ld Delayed 00:00: 00:00 (40 mg - Release 00 :00 total) by Externa Capsule mouth l daily Omeprazole Yes [id number] 40mg Take 40 mg Patti 40 MG oral 3-30 by mouth Seybo ld Delayed 10:34: daily - Release 17 Externa Capsule l Montelukast Yes [id number] 10mg Take 10 mg Patti (SINGULAIR) 3-30 by mouth Seyb old 10 MG oral 10:34: nightly - Tablet 15 Externa tablet l Acetaminoph Yes [id number] 1300mg Q.5D Take 1,300 Patti en 650 MG 3-30 mg by Seybold oral Tab CR 10:34: mouth 2 - 12 times Externa daily as l needed AMLODIPINE 2022- No 5mg Take 5 mg K elsey BESYLATE OR 3-30 03-30 by mouth 2 S eybold 10:16: 00:00 times - 07 :00 daily Externa l Chlorphenir 2022- No 4mg Q.25D Take 4 mg Patti amine 3-30 03-30 by mouth Seybold Maleate 4 10:16: 00:00 every 6 - MG oral 07 :00 hours as Externa Tablet needed for l allergies Diclofenac 2022- No Apply Kelse y Sodium 1 % 3-30 03-30 topically Sey bold apply 10:16: 00:00 - externally 07 :00 Externa Gel l Famotidine 2022- No 20mg Take 20 mg Patti (PEPCID) 20 3-30 03-30 by mouth Sey bold MG oral 10:13: 00:00 every - tablet 44 :00 night at Externa bedtime l Ibuprofen 2022- No 800mg Q.25D Take 800 K elsey (MOTRIN) 3-30 03-30 mg by Seybold 800 MG oral 10:12: 00:00 mouth - Tablet 46 :00 every 6 Externa hours as l needed Sisters medication Tizanidine 2022- No 4mg Q.25D Take 4 mg Patti HCl 4 MG 3-30 03-30 by mouth Seybol d oral Tablet 10:09: 00:00 every 6 - 04 :00 hours as Externa needed l Tramadol 0 2022- No 50mg Q.25D Take 50 mg K elsey HCl 3-30 03-30 by mouth Seybold (ULTRAM) 50 10:08: 00:00 every 6 - MG oral 41 :00 hours as Externa Tablet needed l hydroCHLORO 2022-0 Yes [id number] 12.5mg Take 12.5 Patti thiazide 3-30 mg by Seybold 12.5 MG 09:13: mouth - oral Tablet 00 daily Externa l Pioglitazon 2022-0 Yes [id number] 15mg Take 15 mg Patti e HCl 15 MG 3-30 by mouth Seyb old oral Tablet 09:13: daily - 00 Externa l GlipiZIDE 5 2022-0 Yes [id number] 5mg Take 5 mg Patti MG oral 3-30 by mouth Seybold TABLET SR 09:13: daily - 24 HR 00 Externa l Metoprolol 2022-0 Yes [id number] 25mg Take 25 mg Patti Tartrate 3-30 by mouth Seybold (LOPRESSOR) 09:13: daily - 25 MG oral 00 Externa Tablet l Chlorphenir 2022-0 Yes [id number] 4mg QD Take 1 Patti amine 3-30 tablet (4 Seybold Maleate 4 00:00: mg total) - MG oral 00 by mouth Externa Tablet nightly as l needed for allergies or rhinitis Diclofenac 2022-0 Yes [id number] Q.5D Apply 1 Patti Sodium 1 % 3-30 applicatio Sey bold apply 00:00: n. - externally 00 topically Exte rna Gel 2 times l daily as needed (pain) Amlodipine 2022-0 Yes [id number] 5mg Take 0.5 Patti Besylate 10 3-30 tablets (5 Se ybold MG oral 00:00: mg total) - Tablet 00 by mouth Externa daily l Chlorphenir 2022-0 Yes [id number] 4mg QD Take 1 Patti amine 3-30 tablet (4 Seybold Maleate 4 00:00: mg total) - MG oral 00 by mouth Externa Tablet nightly as l needed for allergies or rhinitis Diclofenac 2022-0 Yes [id number] Q.5D Apply 1 Patti Sodium 1 % 3-30 applicatio Sey bold apply 00:00: n. - externally 00 topically Exte rna Gel 2 times l daily as needed (pain) Amlodipine 2022-0 Yes [id number] 5mg Take 0.5 Patti Besylate 10 3-30 tablets (5 Se ybold MG oral 00:00: mg total) - Tablet 00 by mouth Externa daily l Diclofenac 2022-0 Yes [id number] Q.5D Apply 1 Patti Sodium 1 % 3-30 applicatio [employer]fm bold apply 00:00: n. - externally 00 topically Exte rna Gel 2 times l daily as needed (pain) Diclofenac 2022-0 Yes [id number] Q.5D Apply 1 Patti Sodium 1 % 3-30 applicatio [place] bold apply 00:00: n. - externally 00 topically Exte rna Gel 2 times l daily as needed (pain) Chlorphenir 2022-0 Yes [id number] 4mg QD Take 1 Patti amine 3-30 tablet (4 Seybold Maleate 4 00:00: mg total) - MG oral 00 by mouth Externa Tablet nightly as l needed for allergies or rhinitis Diclofenac 2022-0 Yes [id number] Q.5D Apply 1 Patti Sodium 1 % 3-30 applicatio Verdiem apply 00:00: n. - externally 00 topically Exte rna Gel 2 times l daily as needed (pain) Amlodipine 2022-0 Yes [id number] 5mg Take 0.5 Patti Besylate 10 3-30 tablets (5 Se ybold MG oral 00:00: mg total) - Tablet 00 by mouth Externa daily l Chlorphenir 2022-0 2023- No [id number] 4mg QD Take 1 Patti amine 3-30 06-27 tablet (4 Seybold Maleate 4 00:00: 00:00 mg total) - MG oral 00 :00 by mouth Externa Tablet nightly as l needed for allergies or rhinitis Amlodipine 2022-0 2023- No [id number] 5mg Take 0.5 Patti Besylate 10 3-30 06-27 tablets (5 S eybold MG oral 00:00: 00:00 mg total) - Tablet 00 :00 by mouth Externa daily l alpha alpha 2020-0 No 1capsul Q1D alpha Village lipoic acid lipoic acid 3-30 e(s) lipoic Family 200 mg 200 mg 00:00: acid 200 Pract ic capsule capsule 00 mg capsule e Take 1 Take 1 Take 1 capsule capsule capsule every day every day every day by oral by oral by oral route. route. route. alpha alpha 2021-0 No 1capsul Q1D alpha Village lipoic acid lipoic acid 3-30 e(s) lipoic Family 200 mg 200 mg 00:00: acid 200 Pract ic capsule capsule 00 mg capsule e Take 1 Take 1 Take 1 capsule capsule capsule every day every day every day by oral by oral by oral route. route. route. alpha alpha 2021-0 No 1capsul Q1D alpha Village lipoic acid lipoic acid 3-30 e(s) lipoic Family 200 mg 200 mg 00:00: acid 200 Pract ic capsule capsule 00 mg capsule e Take 1 Take 1 Take 1 capsule capsule capsule every day every day every day by oral by oral by oral route. route. route. alpha alpha 2021-0 No 1capsul Q1D alpha Village lipoic acid lipoic acid 3-30 e(s) lipoic Family 200 mg 200 mg 00:00: acid 200 Pract ic capsule capsule 00 mg capsule e Take 1 Take 1 Take 1 capsule capsule capsule every day every day every day by oral by oral by oral route. route. route. OneTouch OneTouch 2020-0 No OneTouch V illage Ultra Test Ultra Test 5-13 Ultra Test Family strips BID strips BID 00:00: strips BID Practic 00 e OneTouch OneTouch 2019-0 No OneTouch V illage Ultra Test Ultra Test 5-13 Ultra Test Family strips BID strips BID 00:00: strips BID Practic 00 e OneTouch OneTouch 2020-0 No OneTouch V illage Ultra Test Ultra Test 5-13 Ultra Test Family strips BID strips BID 00:00: strips BID Practic 00 e OneTouch OneTouch 2019-0 No OneTouch V illage Ultra Test Ultra Test 5-13 Ultra Test Family strips BID strips BID 00:00: strips BID Practic 00 e albuterol albuterol No albuterol Village sulfate HFA sulfate HFA sulfate Family 90 90 HFA 90 Practic mcg/actuati mcg/actuati mcg/actuat e on aerosol on aerosol ion inhaler inhaler aerosol INHALE 2 INHALE 2 inhaler PUFFS BY PUFFS BY INHALE 2 MOUTH 3 MOUTH 3 PUFFS BY TIMES A DAY TIMES A DAY MOUTH 3 NEEDED NEEDED TIMES A DAY NEEDED amlodipine amlodipine No amlodipine Village 5 mg tablet 5 mg tablet 5 mg F amily TAKE 2 TAKE 2 tablet Practic TABLETS BY TABLETS BY TAKE 2 e MOUTH EVERY MOUTH EVERY TABLETS BY DAY DAY MOUTH EVERY DAY famotidine famotidine famotidine [facility] 20 mg 20 mg 20 mg Family tablet TAKE tablet TAKE tablet Practic 1 TABLET BY 1 TABLET BY TAKE 1 e MOUTH EVERY MOUTH EVERY TABLET BY DAY DAY MOUTH EVERY DAY glipizide glipizide No glipizide [facility] ER 5 mg ER 5 mg ER 5 mg Family tablet, tablet, tablet, Practi c extended extended extended e release 24 release 24 release 24 hr TAKE 1 hr TAKE 1 hr TAKE 1 TABLET TABLET TABLET EVERY DAY EVERY DAY EVERY DAY BY ORAL BY ORAL BY ORAL ROUTE ROUTE ROUTE BEFORE BEFORE BEFORE MEALS FOR MEALS FOR MEALS FOR 90 DAYS. 90 DAYS. 90 DAYS. hydrochloro hydrochloro hydrochlor [facility] thiazide thiazide othiazide Fa perico 12.5 mg 12.5 mg 12.5 mg Practi c tablet TAKE tablet TAKE tablet e 1 TABLET BY 1 TABLET BY TAKE 1 MOUTH EVERY MOUTH EVERY TABLET BY DAY DAY MOUTH EVERY DAY ipratropium ipratropium No ipratropiu [facility] 0.5 0.5 m 0.5 Family mg-albutero mg-albutero mg-albuter Practic l 3 mg (2.5 l 3 mg (2.5 ol 3 mg e mg base)/3 mg base)/3 (2.5 mg mL mL base)/3 mL nebulizatio nebulizatio nebulizati n soln n soln on soln INHALE 1 INHALE 1 INHALE 1 VIAL VIA VIAL VIA VIAL VIA NEBULIZER NEBULIZER NEBULIZER TWO TIMES TWO TIMES TWO TIMES DAILY DAILY DAILY Klor-Con 10 Klor-Con 10 No Klor-Con [facility] mEq mEq 10 mEq Family tablet,exte tablet,exte tablet,ext Practic nded nded ended e release release release TAKE 1 TAKE 1 TAKE 1 TABLET BY TABLET BY TABLET BY MOUTH EVERY MOUTH EVERY MOUTH DAY DAY EVERY DAY metoprolol metoprolol metoprolol [facility] tartrate 25 tartrate 25 tartrate Family mg tablet mg tablet 25 mg Prac tic TAKE 1 TAKE 1 tablet e TABLET BY TABLET BY TAKE 1 MOUTH EVERY MOUTH EVERY TABLET BY DAY DAY MOUTH EVERY DAY montelukast montelukast No montelukas [facility] 10 mg 10 mg t 10 mg Family tablet TAKE tablet TAKE tablet Practic 1 TABLET BY 1 TABLET BY TAKE 1 e MOUTH EVERY MOUTH EVERY TABLET BY DAY DAY MOUTH EVERY DAY omeprazole omeprazole No omeprazole [facility] 40 mg 40 mg 40 mg Family capsule,del capsule,del capsule,de Practic ayed ayed layed e release release release TAKE 1 TAKE 1 TAKE 1 CAPSULE BY CAPSULE BY CAPSULE BY MOUTH EVERY MOUTH EVERY MOUTH DAY DAY EVERY DAY pioglitazon pioglitazon No pioglitazo [place] e 15 mg e 15 mg ne 15 mg Famil y tablet TAKE tablet TAKE tablet Practic 1 TABLET BY 1 TABLET BY TAKE 1 e MOUTH EVERY MOUTH EVERY TABLET BY DAY DAY MOUTH EVERY DAY pravastatin pravastatin No pravastati [place] 80 mg 80 mg n 80 mg Family tablet TAKE tablet TAKE tablet Practic 1 TABLET BY 1 TABLET BY TAKE 1 e MOUTH EVERY MOUTH EVERY TABLET BY DAY DAY MOUTH EVERY DAY tizanidine tizanidine No tizanidine [facility] 4 mg tablet 4 mg tablet 4 mg F amily TAKE 1 TAKE 1 tablet Practic TABLET BY TABLET BY TAKE 1 e MOUTH EVERY MOUTH EVERY TABLET BY DAY DAY MOUTH EVERY DAY albuterol albuterol No albuterol [place] sulfate HFA sulfate HFA sulfate Family 90 90 HFA 90 Practic mcg/actuati mcg/actuati mcg/actuat e on aerosol on aerosol ion inhaler inhaler aerosol INHALE 2 INHALE 2 inhaler PUFFS BY PUFFS BY INHALE 2 MOUTH 3 MOUTH 3 PUFFS BY TIMES A DAY TIMES A DAY MOUTH 3 NEEDED NEEDED TIMES A DAY NEEDED amlodipine amlodipine No amlodipine [facility] 5 mg tablet 5 mg tablet 5 mg F amily TAKE 2 TAKE 2 tablet Practic TABLETS BY TABLETS BY TAKE 2 e MOUTH EVERY MOUTH EVERY TABLETS BY DAY DAY MOUTH EVERY DAY diclofenac diclofenac No diclofenac [facility] 1 % topical 1 % topical 1 % F amily gel APPLY 2 gel APPLY 2 topical Practic GRAMS TO GRAMS TO gel APPLY e THE THE 2 GRAMS TO AFFECTED AFFECTED THE AREA(S) BY AREA(S) BY AFFECTED TOPICAL TOPICAL AREA(S) BY ROUTE 4 ROUTE 4 TOPICAL TIMES PER TIMES PER ROUTE 4 DAY DAY TIMES PER DAY famotidine famotidine No famotidine [facility] 20 mg 20 mg 20 mg Family tablet TAKE tablet TAKE tablet Practic 1 TABLET BY 1 TABLET BY TAKE 1 e MOUTH EVERY MOUTH EVERY TABLET BY DAY DAY MOUTH EVERY DAY glipizide glipizide No glipizide [facility] 5 mg ER 5 mg ER 5 mg Family tablet, tablet, tablet, Practi c extended extended extended e release 24 release 24 release 24 hr TAKE 1 hr TAKE 1 hr TAKE 1 TABLET TABLET TABLET EVERY DAY EVERY DAY EVERY DAY BY ORAL BY ORAL BY ORAL ROUTE ROUTE ROUTE BEFORE BEFORE BEFORE MEALS FOR MEALS FOR MEALS FOR 90 DAYS. 90 DAYS. 90 DAYS. hydrochloro hydrochloro No hydrochlor [facility] thiazide thiazide othiazide Fa perico 12.5 mg 12.5 mg 12.5 mg Practi c tablet TAKE tablet TAKE tablet e 1 TABLET BY 1 TABLET BY TAKE 1 MOUTH EVERY MOUTH EVERY TABLET BY DAY DAY MOUTH EVERY DAY ipratropium ipratropium No ipratropiu [facility] 0.5 0.5 m 0.5 Family mg-albutero mg-albutero mg-albuter Practic l 3 mg (2.5 l 3 mg (2.5 ol 3 mg e mg base)/3 mg base)/3 (2.5 mg mL mL base)/3 mL nebulizatio nebulizatio nebulizati n soln n soln on soln INHALE 1 INHALE 1 INHALE 1 VIAL VIA VIAL VIA VIAL VIA NEBULIZER NEBULIZER NEBULIZER TWO TIMES TWO TIMES TWO TIMES DAILY DAILY DAILY Klor-Con 10 Klor-Con 10 No Klor-Con [facility] mEq mEq 10 mEq Family tablet,exte tablet,exte tablet,ext Practic nded nded ended e release release release TAKE 1 TAKE 1 TAKE 1 TABLET BY TABLET BY TABLET BY MOUTH EVERY MOUTH EVERY MOUTH DAY DAY EVERY DAY metoprolol metoprolol No metoprolol [facility] tartrate 25 tartrate 25 tartrate Family mg tablet mg tablet 25 mg Prac tic TAKE 1 TAKE 1 tablet e TABLET BY TABLET BY TAKE 1 MOUTH EVERY MOUTH EVERY TABLET BY DAY DAY MOUTH EVERY DAY montelukast montelukast No montelukas [facility] 10 mg 10 mg t 10 mg Family tablet TAKE tablet TAKE tablet Practic 1 TABLET BY 1 TABLET BY TAKE 1 e MOUTH EVERY MOUTH EVERY TABLET BY DAY DAY MOUTH EVERY DAY omeprazole omeprazole No omeprazole [facility] 40 mg 40 mg 40 mg Family capsule,del capsule,del capsule,de Practic ayed ayed layed e release release release TAKE 1 TAKE 1 TAKE 1 CAPSULE BY CAPSULE BY CAPSULE BY MOUTH EVERY MOUTH EVERY MOUTH DAY DAY EVERY DAY pioglitazon pioglitazon No pioglitazo [facility] e 15 mg e 15 mg ne 15 mg Famil y tablet TAKE tablet TAKE tablet Practic 1 TABLET BY 1 TABLET BY TAKE 1 e MOUTH EVERY MOUTH EVERY TABLET BY DAY DAY MOUTH EVERY DAY pravastatin pravastatin No pravastati [facility] 80 mg 80 mg n 80 mg Family tablet TAKE tablet TAKE tablet Practic 1 TABLET BY 1 TABLET BY TAKE 1 e MOUTH EVERY MOUTH EVERY TABLET BY DAY DAY MOUTH EVERY DAY tizanidine tizanidine No tizanidine [facility] 4 mg tablet 4 mg tablet 4 mg F amily TAKE 1 TAKE 1 tablet Practic TABLET BY TABLET BY TAKE 1 e MOUTH EVERY MOUTH EVERY TABLET BY DAY DAY MOUTH EVERY DAY tramadol 50 tramadol 50 No 1 Q7H tramadol [facility] mg tablet mg tablet 50 mg Fami ly Take 1 Take 1 tablet Practic tablet tablet Take 1 e every 6-8 every 6-8 tablet hours by hours by every 6-8 oral route oral route hours by as needed. as needed. oral route as needed. albuterol albuterol No albuterol [facility] sulfate HFA sulfate HFA sulfate Family 90 90 HFA 90 Practic mcg/actuati mcg/actuati mcg/actuat e on aerosol on aerosol ion inhaler inhaler aerosol INHALE 2 INHALE 2 inhaler PUFFS BY PUFFS BY INHALE 2 MOUTH 3 MOUTH 3 PUFFS BY TIMES A DAY TIMES A DAY MOUTH 3 NEEDED NEEDED TIMES A DAY NEEDED amlodipine amlodipine No amlodipine [facility] 5 mg tablet 5 mg tablet 5 mg F amily TAKE 2 TAKE 2 tablet Practic TABLETS BY TABLETS BY TAKE 2 e MOUTH EVERY MOUTH EVERY TABLETS BY DAY DAY MOUTH EVERY DAY diclofenac diclofenac No diclofenac [facility] 1 % topical 1 % topical 1 % F amily gel APPLY 2 gel APPLY 2 topical Practic GRAMS TO GRAMS TO gel APPLY e THE THE 2 GRAMS TO AFFECTED AFFECTED THE AREA(S) BY AREA(S) BY AFFECTED TOPICAL TOPICAL AREA(S) BY ROUTE 4 ROUTE 4 TOPICAL TIMES PER TIMES PER ROUTE 4 DAY DAY TIMES PER DAY famotidine famotidine No famotidine [facility] 20 mg 20 mg 20 mg Family tablet TAKE tablet TAKE tablet Practic 1 TABLET BY 1 TABLET BY TAKE 1 e MOUTH EVERY MOUTH EVERY TABLET BY DAY DAY MOUTH EVERY DAY glipizide glipizide No 1 Q1D glipizide [facility] ER 5 mg ER 5 mg ER 5 mg Family tablet, tablet, tablet, Practi c extended extended extended e release 24 release 24 release 24 hr Take 1 hr Take 1 hr Take 1 tablet tablet tablet every day every day every day by oral by oral by oral route route route before before before meals for meals for meals for 90 days. 90 days. 90 days. hydrochloro hydrochloro No hydrochlor [facility] thiazide thiazide othiazide Fa perico 12.5 mg 12.5 mg 12.5 mg Practi c tablet TAKE tablet TAKE tablet e 1 TABLET BY 1 TABLET BY TAKE 1 MOUTH EVERY MOUTH EVERY TABLET BY DAY DAY MOUTH EVERY DAY metoprolol metoprolol No metoprolol [facility] tartrate 25 tartrate 25 tartrate Family mg tablet mg tablet 25 mg Prac tic TAKE 1 TAKE 1 tablet e TABLET BY TABLET BY TAKE 1 MOUTH EVERY MOUTH EVERY TABLET BY DAY DAY MOUTH EVERY DAY montelukast montelukast No montelukas [facility] 10 mg 10 mg t 10 mg Family tablet TAKE tablet TAKE tablet Practic 1 TABLET BY 1 TABLET BY TAKE 1 e MOUTH EVERY MOUTH EVERY TABLET BY DAY DAY MOUTH EVERY DAY omeprazole omeprazole No omeprazole [facility] 40 mg 40 mg 40 mg Family capsule,del capsule,del capsule,de Practic ayed ayed layed e release release release TAKE 1 TAKE 1 TAKE 1 CAPSULE BY CAPSULE BY CAPSULE BY MOUTH EVERY MOUTH EVERY MOUTH DAY DAY EVERY DAY pioglitazon pioglitazon No 1 Q1D pioglitazo [facility] e 15 mg e 15 mg ne 15 mg Famil y tablet Take tablet Take tablet Practic 1 tablet 1 tablet Take 1 e every day every day tablet by oral by oral every day route for route for by oral 90 days. 90 days. route for 90 days. potassium potassium No 1 Q1D potassium [facility] chloride ER chloride ER chloride Family 10 mEq 10 mEq ER 10 mEq Practi c tablet,exte tablet,exte tablet,ext e nded nded ended release release release Take 1 Take 1 Take 1 tablet tablet tablet every day every day every day by oral by oral by oral route for route for route for 90 days. 90 days. 90 days. pravastatin pravastatin No pravastati [facility] 80 mg 80 mg n 80 mg Family tablet TAKE tablet TAKE tablet Practic 1 TABLET BY 1 TABLET BY TAKE 1 e MOUTH EVERY MOUTH EVERY TABLET BY DAY DAY MOUTH EVERY DAY tizanidine tizanidine No tizanidine [facility] 4 mg tablet 4 mg tablet 4 mg F amily TAKE 1 TAKE 1 tablet Practic TABLET BY TABLET BY TAKE 1 e MOUTH EVERY MOUTH EVERY TABLET BY DAY DAY MOUTH EVERY DAY tramadol 50 tramadol 50 No 1 Q7H tramadol [facility] mg tablet mg tablet 50 mg Fami ly Take 1 Take 1 tablet Practic tablet tablet Take 1 e every 6-8 every 6-8 tablet hours by hours by every 6-8 oral route oral route hours by as needed. as needed. oral route as needed. albuterol albuterol No albuterol [place] sulfate HFA sulfate HFA sulfate Family 90 90 HFA 90 Practic mcg/actuati mcg/actuati mcg/actuat e on aerosol on aerosol ion inhaler inhaler aerosol INHALE 2 INHALE 2 inhaler PUFFS BY PUFFS BY INHALE 2 MOUTH 3 MOUTH 3 PUFFS BY TIMES A DAY TIMES A DAY MOUTH 3 NEEDED NEEDED TIMES A DAY NEEDED amlodipine amlodipine No amlodipine [facility] 5 mg tablet 5 mg tablet 5 mg F amily TAKE 2 TAKE 2 tablet Practic TABLETS BY TABLETS BY TAKE 2 e MOUTH EVERY MOUTH EVERY TABLETS BY DAY DAY MOUTH EVERY DAY Celebrex Celebrex No 1capsul Q1D Celebrex [facility] 200 mg 200 mg e(s) 200 mg Family capsule capsule capsule Practi c Take 1 Take 1 Take 1 e capsule capsule capsule every day every day every day by oral by oral by oral route as route as route as needed. needed. needed. Chlor-Trime Chlor-Trime No 1 Q12H Chlor-Trim [facility] ton Allergy ton Allergy eton F amily 12 hour 12 12 hour 12 Allergy 12 Practic mg mg hour 12 mg e tablet,exte tablet,exte tablet,ext nded nded ended release release release Take 1 Take 1 Take 1 tablet tablet tablet every 12 every 12 every 12 hours by hours by hours by oral route. oral route. oral route. diclofenac diclofenac No diclofenac [facility] 1 % topical 1 % topical 1 % F amily gel APPLY 2 gel APPLY 2 topical Practic GRAMS TO GRAMS TO gel APPLY e THE THE 2 GRAMS TO AFFECTED AFFECTED THE AREA(S) BY AREA(S) BY AFFECTED TOPICAL TOPICAL AREA(S) BY ROUTE 4 ROUTE 4 TOPICAL TIMES PER TIMES PER ROUTE 4 DAY DAY TIMES PER DAY famotidine famotidine No famotidine [facility] 20 mg 20 mg 20 mg Family tablet TAKE tablet TAKE tablet Practic 1 TABLET BY 1 TABLET BY TAKE 1 e MOUTH EVERY MOUTH EVERY TABLET BY DAY DAY MOUTH EVERY DAY glipizide glipizide No 1 Q1D glipizide [facility] ER 5 mg ER 5 mg ER 5 mg Family tablet, tablet, tablet, Practi c extended extended extended e release 24 release 24 release 24 hr Take 1 hr Take 1 hr Take 1 tablet tablet tablet every day every day every day by oral by oral by oral route route route before before before meals for meals for meals for 90 days. 90 days. 90 days. hydrochloro hydrochloro No hydrochlor [facility] thiazide thiazide othiazide Fa perico 12.5 mg 12.5 mg 12.5 mg Practi c tablet TAKE tablet TAKE tablet e 1 TABLET BY 1 TABLET BY TAKE 1 MOUTH EVERY MOUTH EVERY TABLET BY DAY DAY MOUTH EVERY DAY metoprolol metoprolol No metoprolol [facility] tartrate 25 tartrate 25 tartrate Family mg tablet mg tablet 25 mg Prac tic TAKE 1 TAKE 1 tablet e TABLET BY TABLET BY TAKE 1 MOUTH EVERY MOUTH EVERY TABLET BY DAY DAY MOUTH EVERY DAY montelukast montelukast No montelukas [facility] 10 mg 10 mg t 10 mg Family tablet TAKE tablet TAKE tablet Practic 1 TABLET BY 1 TABLET BY TAKE 1 e MOUTH EVERY MOUTH EVERY TABLET BY DAY DAY MOUTH EVERY DAY omeprazole omeprazole No omeprazole [facility] 40 mg 40 mg 40 mg Family capsule,del capsule,del capsule,de Practic ayed ayed layed e release release release TAKE 1 TAKE 1 TAKE 1 CAPSULE BY CAPSULE BY CAPSULE BY MOUTH EVERY MOUTH EVERY MOUTH DAY DAY EVERY DAY pioglitazon pioglitazon No 1 Q1D pioglitazo [facility] e 15 mg e 15 mg ne 15 mg Famil y tablet Take tablet Take tablet Practic 1 tablet 1 tablet Take 1 e every day every day tablet by oral by oral every day route for route for by oral 90 days. 90 days. route for 90 days. potassium potassium No 1 Q1D potassium [facility] chloride ER chloride ER chloride Family 10 mEq 10 mEq ER 10 mEq Practi c tablet,exte tablet,exte tablet,ext e nded nded ended release release release Take 1 Take 1 Take 1 tablet tablet tablet every day every day every day by oral by oral by oral route for route for route for 90 days. 90 days. 90 days. pravastatin pravastatin No pravastati [facility] 80 mg 80 mg n 80 mg Family tablet TAKE tablet TAKE tablet Practic 1 TABLET BY 1 TABLET BY TAKE 1 e MOUTH EVERY MOUTH EVERY TABLET BY DAY DAY MOUTH EVERY DAY tizanidine tizanidine No tizanidine [facility] 4 mg tablet 4 mg tablet 4 mg F amily TAKE 1 TAKE 1 tablet Practic TABLET BY TABLET BY TAKE 1 e MOUTH EVERY MOUTH EVERY TABLET BY DAY DAY MOUTH EVERY DAY tramadol 50 tramadol 50 No 1 Q7H tramadol [facility] mg tablet mg tablet 50 mg Fami ly Take 1 Take 1 tablet Practic tablet tablet Take 1 e every 6-8 every 6-8 tablet hours by hours by every 6-8 oral route oral route hours by as needed. as needed. oral route as needed. Tylenol 8 Tylenol 8 No 2 Q8H Tylenol 8 [facility] Hour 650 mg Hour 650 mg Hour 650 Family tablet,exte tablet,exte mg P ractic nded nded tablet,ext e release release ended Take 2 Take 2 release tablets tablets Take 2 every 8 every 8 tablets hours by hours by every 8 oral route. oral route. hours by oral route. Immunizations Ordered Immunization Filled Immunization Date Status Commen ts Source Name Name Influenza Virus 2022-10-30 Completed [facility] Vaccine, Unspecified 00:00:00 - Ex ternal Formulation Influenza Virus 2022-10-30 Completed [facility] Vaccine, Unspecified 00:00:00 - Ex ternal Formulation Influenza Virus 2022-10-30 Completed [facility] Vaccine, Unspecified 00:00:00 - Ex ternal Formulation Influenza Virus 2022-10-30 Completed [facility] Vaccine, Unspecified 00:00:00 - Ex ternal Formulation Influenza Virus 2022-10-30 Completed [facility] Vaccine, Unspecified 00:00:00 - Ex ternal Formulation influenza, influenza, 2022-10-[address] [facility] unspecified unspecified 00:00:00 Practice formulation formulation influenza, influenza, 2022-10-[address] [facility] unspecified unspecified 00:00:00 Practice formulation formulation COVID-19, mRNA, COVID-19, mRNA, 2022-05-22 Completed [facility] LNP-S, PF, 50 mcg/0.5 LNP-S, PF, 50 mcg/0.5 13:20:19 Practice mL dose (Moderna) mL dose (Moderna) COVID-19, mRNA, COVID-19, mRNA, 2022-05-22 Completed [facility] LNP-S, PF, 50 mcg/0.5 LNP-S, PF, 50 mcg/0.5 13:20:19 Practice mL dose (Moderna) mL dose (Moderna) COVID-19, mRNA, COVID-19, mRNA, 2022-05-22 Completed [facility] LNP-S, PF, 50 mcg/0.5 LNP-S, PF, 50 mcg/0.5 13:20:19 Practice mL dose (Moderna) mL dose (Moderna) COVID-19, mRNA, COVID-19, mRNA, 2022-05-22 Completed [facility] LNP-S, PF, 50 mcg/0.5 LNP-S, PF, 50 mcg/0.5 13:20:19 Practice mL dose (Moderna) mL dose (Moderna) Covid-19 Vaccine 2021-09-24 Completed [facility] Moderna (Spikevax), 00:00:00 - Ext ernal Mrna-lnp, Azar Protein, Pf Covid-19 Vaccine 2021-09-24 Completed [facility] Moderna (Spikevax), 00:00:00 - Ext ernal Mrna-lnp, Azar Protein, Pf Covid-19 Vaccine 2021-09-24 Completed [facility] Moderna (Spikevax), 00:00:00 - Ext ernal Mrna-lnp, Azar Protein, Pf Covid-19 Vaccine 2021-09-24 Completed [facility] (Pfizer), Mrna-lnp, 00:00:00 - Ext ernal Azar Protein, Pf, 30mcg/0.3ml,IM Covid-19 Vaccine 2021-09-24 Completed [facility] S [facility] Moderna (Spikevax), 00:00:00 - Ext ernal Mrna-lnp, Azar Protein, Pf Covid-19 Vaccine 2021-09-24 Completed [facility] (Pfizer), Mrna-lnp, 00:00:00 - Ext ernal Azar Protein, Pf, 30mcg/0.3ml,IM Covid-19 Vaccine 2021-09-24 Completed [facility] Moderna (Spikevax), 00:00:00 - Ext ernal Mrna-lnp, Azar Protein, Pf COVID-19, mRNA, COVID-19, mRNA, 2021-09-24 Completed [facility] LNP-S, PF, 100 LNP-S, PF, 100 00:00:00 Practi ce mcg/0.5 mL dose mcg/0.5 mL dose (Moderna) (Moderna) COVID-19, mRNA, COVID-19, mRNA, 2021-09-24 Completed [facility] LNP-S, PF, 100 LNP-S, PF, 100 00:00:00 Practi ce mcg/0.5 mL dose mcg/0.5 mL dose (Moderna) (Moderna) COVID-19, mRNA, COVID-19, mRNA, 2021-09-24 Completed [facility] LNP-S, PF, 100 LNP-S, PF, 100 00:00:00 Practi ce mcg/0.5 mL dose mcg/0.5 mL dose (Moderna) (Moderna) COVID-19, mRNA, COVID-19, mRNA, 2021-09-24 Completed [facility] LNP-S, PF, 100 LNP-S, PF, 100 00:00:00 Practi ce mcg/0.5 mL dose mcg/0.5 mL dose (Moderna) (Moderna) Covid-19 Vaccine 2021-02-09 Completed [facility] (Freebase), Mrna-lnp, 00:00:00 - Ext ernal Azar Protein, Pf, 30mcg/0.3ml,IM Covid-19 Vaccine 2021-02-09 Completed [facility] (Freebase), Mrna-lnp, 00:00:00 - Ext ernal Azar Protein, Pf, 30mcg/0.3ml,IM Covid-19 Vaccine 2021-01-24 Completed [facility] (UNSPECIFIED) 00:00:00 - External Covid-19 Vaccine 2021-01-24 Completed [facility] (UNSPECIFIED) 00:00:00 - External Covid-19 Vaccine 2021-01-24 Completed [facility] (UNSPECIFIED) 00:00:00 - External Covid-19 Vaccine 2021-01-24 Completed [facility] (UNSPECIFIED) 00:00:00 - External Covid-19 Vaccine 2021-01-24 Completed [facility] (UNSPECIFIED) 00:00:00 - External COVID-19 (SARS-COV-2) COVID-19 (SARS-COV-2) 2021-01-24 Completed [facility] vaccine, unspecified vaccine, unspecified 00:00:00 Practice COVID-19 (SARS-COV-2) COVID-19 (SARS-COV-2) 2021-01-24 Completed [facility] Family vaccine, unspecified vaccine, unspecified 00:00:00 Practice COVID-19 (SARS-COV-2) COVID-19 (SARS-COV-2) 2021-01-24 Completed [facility] Family vaccine, unspecified vaccine, unspecified 00:00:00 Practice COVID-19 (SARS-COV-2) COVID-19 (SARS-COV-2) 2021-01-24 Completed [facility] Family vaccine, unspecified vaccine, unspecified 00:00:00 Practice Covid-19 Vaccine 2021-01-19 Completed [facility] (Freebase), Mrna-lnp, 00:00:00 - Ext ernal Azar Protein, Pf, 30mcg/0.3ml,IM Covid-19 Vaccine 2021-01-19 Completed [facility] (Freebase), Mrna-lnp, 00:00:00 - Ext ernal Azar Protein, Pf, 30mcg/0.3ml,IM Covid-19 Vaccine 2020-12-27 Completed [facility] (UNSPECIFIED) 00:00:00 - External Covid-19 Vaccine 2020-12-27 Completed [facility] (UNSPECIFIED) 00:00:00 - External Covid-19 Vaccine 2020-12-27 Completed [facility] (UNSPECIFIED) 00:00:00 - External Covid-19 Vaccine 2020-12-27 Completed [facility] (UNSPECIFIED) 00:00:00 - External Covid-19 Vaccine 2020-12-27 Completed [facility] (UNSPECIFIED) 00:00:00 - External COVID-19 (SARS-COV-2) COVID-19 (SARS-COV-2) 2020-12-27 Completed [facility] Family vaccine, unspecified vaccine, unspecified 00:00:00 Practice COVID-19 (SARS-COV-2) COVID-19 (SARS-COV-2) 2020-12-27 Completed [facility] Family vaccine, unspecified vaccine, unspecified 00:00:00 Practice COVID-19 (SARS-COV-2) COVID-19 (SARS-COV-2) 2020-12-27 Completed [facility] Family vaccine, unspecified vaccine, unspecified 00:00:00 Practice COVID-19 (SARS-COV-2) COVID-19 (SARS-COV-2) 2020-12-27 Completed [facility] Family vaccine, unspecified vaccine, unspecified 00:00:00 Practice Influenza Virus 2020-11-26 Completed [facility] Vaccine, Split, up to 00:00:00 - E xternal age 3 Influenza Virus 2020-11-26 Completed [facility] Vaccine, Split, up to 00:00:00 - E xternal age 3 Influenza Virus 2020-11-26 Completed [facility] Vaccine, Split, up to 00:00:00 - E xternal age 3 Influenza Virus 2020-11-26 Completed [facility] Vaccine, Split, up to 00:00:00 - E xternal age 3 Influenza Virus 2020-11-26 Completed [facility] Vaccine, Split, up to 00:00:00 - E xternal age 3 influenza, influenza, 2020-11-[address] [facility] injectable, injectable, 00:00:00 Practice quadrivalent quadrivalent influenza, influenza, 2020-11-[address] [facility] injectable, injectable, 00:00:00 Practice quadrivalent quadrivalent influenza, influenza, 2020-11-[address] [facility] injectable, injectable, 00:00:00 Practice quadrivalent quadrivalent influenza, influenza, 2020-11-[address] [facility] injectable, injectable, 00:00:00 Practice quadrivalent quadrivalent Influenza Virus 2020-08-26 Completed [facility] Vaccine, Split, up to 00:00:00 - E xternal age 3 Influenza Virus 2020-08-26 Completed [facility] Vaccine, Split, up to 00:00:00 - E xternal age 3 Influenza Virus 2020-08-26 Completed [facility] Vaccine, Split, up to 00:00:00 - E xternal age 3 Influenza Virus 2020-08-26 Completed [facility] Vaccine, Split, up to 00:00:00 - E xternal age 3 Influenza Virus 2020-08-26 Completed [facility] Vaccine, Split, up to 00:00:00 - E xternal age 3 influenza, influenza, 2020-08-[address] [facility] injectable, injectable, 00:00:00 Practice quadrivalent quadrivalent influenza, influenza, 2020-08-[address] [facility] injectable, injectable, 00:00:00 Practice quadrivalent quadrivalent influenza, influenza, 2020-08-[address] [facility] injectable, injectable, 00:00:00 Practice quadrivalent quadrivalent influenza, influenza, 2020-08-[address] [facility] injectable, injectable, 00:00:00 Practice quadrivalent quadrivalent Seasonal Trivalent 2019-10-02 Completed [facility] Influenza Vaccine, 00:00:00 - Exte rnal Adjuvanted, Preserve Seasonal Trivalent 2019-10-02 Completed [facility] Influenza Vaccine, 00:00:00 - Exte rnal Adjuvanted, Preserve Seasonal Trivalent 2019-10-02 Completed [facility] Influenza Vaccine, 00:00:00 - Exte rnal Adjuvanted, Preserve Seasonal Trivalent 2019-10-02 Completed [facility] Influenza Vaccine, 00:00:00 - Exte rnal Adjuvanted, Preserve Seasonal Trivalent 2019-10-02 Completed [facility] Influenza Vaccine, 00:00:00 - Exte rnal Adjuvanted, Preserve influenza, trivalent, influenza, trivalent, 2019-10-[address] [facility] adjuvanted adjuvanted 00:00:00 Practice influenza, trivalent, influenza, trivalent, 2019-10-[address] [facility] adjuvanted adjuvanted 00:00:00 Practice influenza, trivalent, influenza, trivalent, 2019-10-[address] [facility] adjuvanted adjuvanted 00:00:00 Practice influenza, trivalent, influenza, trivalent, 2019-10-[address] [facility] adjuvanted adjuvanted 00:00:00 Practice influenza, split 2016-11-10 Completed [facility] S [facility] (incl. purified 00:00:00 - Externa l surface antigen) influenza, split 2016-11-10 Completed [facility] (incl. purified 00:00:00 - Externa l surface antigen) influenza, split 2016-11-10 Completed [facility] (incl. purified 00:00:00 - Externa l surface antigen) influenza, split 2016-11-10 Completed [facility] (incl. purified 00:00:00 - Externa l surface antigen) influenza, split 2016-11-10 Completed [facility] (incl. purified 00:00:00 - Externa l surface antigen) influenza, split influenza, split 2016-11-10 Completed [facility] (incl. purified (incl. purified 00:00:00 Prac lucia surface antigen) surface antigen) influenza, split influenza, split 2016-11-10 Completed [facility] (incl. purified (incl. purified 00:00:00 Prac lucia surface antigen) surface antigen) influenza, split influenza, split 2016-11-10 Completed [facility] (incl. purified (incl. purified 00:00:00 Prac lucia surface antigen) surface antigen) influenza, split influenza, split 2016-11-10 Completed [facility] (incl. purified (incl. purified 00:00:00 Prac lucia surface antigen) surface antigen) influenza, split 2015-12-07 Completed [facility] (incl. purified 00:00:00 - Externa l surface antigen) influenza, split 2015-12-07 Completed [facility] (incl. purified 00:00:00 - Externa l surface antigen) influenza, split 2015-12-07 Completed [facility] (incl. purified 00:00:00 - Externa l surface antigen) influenza, split 2015-12-07 Completed [facility] (incl. purified 00:00:00 - Externa l surface antigen) influenza, split 2015-12-07 Completed [facility] (incl. purified 00:00:00 - Externa l surface antigen) influenza, split influenza, split 2015-12-07 Completed [facility] (incl. purified (incl. purified 00:00:00 Prac lucia surface antigen) surface antigen) influenza, split influenza, split 2015-12-07 Completed [facility] (incl. purified (incl. purified 00:00:00 Prac lucia surface antigen) surface antigen) influenza, split influenza, split 2015-12-07 Completed [facility] (incl. purified (incl. purified 00:00:00 Prac lucia surface antigen) surface antigen) influenza, split influenza, split 2015-12-07 Completed [facility] (incl. purified (incl. purified 00:00:00 Prac lucia surface antigen) surface antigen) Influenza, Seasonal, 2014-10-06 Completed [facility] Injectable 00:00:00 - External Influenza, Seasonal, 2014-10-06 Completed [facility] Injectable 00:00:00 - External Influenza, Seasonal, 2014-10-06 Completed Ana ey Seybold Injectable 00:00:00 - External Influenza, Seasonal, 2014-10-06 Completed Ana ey Seybold Injectable 00:00:00 - External Influenza, Seasonal, 2014-10-06 Completed Ana ey Seybold Injectable 00:00:00 - External influenza, seasonal, influenza, seasonal, 2014-10-06 [facility] 00:00:00 Practice influenza, seasonal, influenza, seasonal, 2014-10-06 Completed [facility] injectable 00:00:00 Practice influenza, seasonal, influenza, seasonal, 2014-10-06 Completed [facility] injectable 00:00:00 Practice influenza, seasonal, influenza, seasonal, 2014-10-06 Completed [facility] injectable 00:00:00 Practice zoster, unspecified 2013-12-11 Completed Kelse y Seybold formulation 00:00:00 - External zoster, unspecified 2013-12-11 Completed Kelse y Seybold formulation 00:00:00 - External zoster, unspecified 2013-12-11 Completed Kelse y Seybold formulation 00:00:00 - External zoster, unspecified 2013-12-11 Completed Kelse y Seybold formulation 00:00:00 - External zoster, unspecified 2013-12-11 Completed Kelse y Seybold formulation 00:00:00 - External zoster, unspecified zoster, unspecified 2013-12-11 Completed [facility] formulation formulation 00:00:00 Practice zoster, unspecified zoster, unspecified 2013-12-11 Completed [facility] formulation formulation 00:00:00 Practice zoster, unspecified zoster, unspecified 2013-12-11 Completed [facility] formulation formulation 00:00:00 Practice zoster, unspecified zoster, unspecified 2013-12-11 Completed [facility] formulation formulation 00:00:00 Practice Influenza, Seasonal, 2013-10-10 Completed Ana ey Seybold Injectable 00:00:00 - External Influenza, Seasonal, 2013-10-10 Completed Ana ey Seybold Injectable 00:00:00 - External Influenza, Seasonal, 2013-10-10 Completed Ana ey Seybold Injectable 00:00:00 - External Influenza, Seasonal, 2013-10-10 Completed Ana ey Seybold Injectable 00:00:00 - External Influenza, Seasonal, 2013-10-10 Completed Ana ey Seybold Injectable 00:00:00 - External influenza, seasonal, influenza, seasonal, 2013-10-10 Completed [facility] injectable 00:00:00 Practice influenza, seasonal, influenza, seasonal, 2013-10-10 Completed [facility]able injectable 00:00:00 Practice influenza, seasonal, influenza, seasonal, 2013-10-10 Completed [facility]able injectable 00:00:00 Practice influenza, seasonal, influenza, seasonal, 2013-10-10 Completed [facility] injectable 00:00:00 Practice Pneumococcal Vaccine, 2012-11-26 Completed Reji sey Seybold Conjugate 13 00:00:00 - External Pneumococcal Vaccine, 2012-11-26 Completed Reji sey Seybold Conjugate 13 00:00:00 - External Pneumococcal Vaccine, 2012-11-26 Completed Reji sey Seybold Conjugate 13 00:00:00 - External Pneumococcal Vaccine, 2012-11-26 Completed Reji sey Seybold Conjugate 13 00:00:00 - External Pneumococcal Vaccine, 2012-11-26 Completed Reji sey Seybold Conjugate 13 00:00:00 - External pneumococcal pneumococcal 2012-11-26 Completed [facility] perico conjugate PCV 13 conjugate PCV 13 00:00:00 Pr actice pneumococcal pneumococcal 2012-11-26 Completed [facility] perico conjugate PCV 13 conjugate PCV 13 00:00:00 Pr actice pneumococcal pneumococcal 2012-11-26 Completed [facility] perico conjugate PCV 13 conjugate PCV 13 00:00:00 Pr actice Influenza, Seasonal, 2012-11-05 Completed Ana ey Seybold Injectable 00:00:00 - External Influenza, Seasonal, 2012-11-05 Completed Ana ey Seybold Injectable 00:00:00 - External Influenza, Seasonal, 2012-11-05 Completed Ana ey Seybold Injectable 00:00:00 - External Influenza, Seasonal, 2012-11-05 Completed Ana ey Seybold Injectable 00:00:00 - External Influenza, Seasonal, 2012-11-05 Completed Ana ey Seybold Injectable 00:00:00 - External influenza, seasonal, influenza, seasonal, 2012-11-05 Completed [facility]able injectable 00:00:00 Practice influenza, seasonal, influenza, seasonal, 2012-11-05 Completed [facility] injectable injectable 00:00:00 Practice influenza, seasonal, influenza, seasonal, 2012-11-05 Completed [facility] injectable injectable 00:00:00 Practice influenza, seasonal, influenza, seasonal, 2012-11-05 Completed [facility] injectable injectable 00:00:00 Practice Pneumococcal Vaccine, 2012-02-05 Completed Reji sey Seybold Polysaccharide 00:00:00 - External Pneumococcal Vaccine, 2012-02-05 Completed Reji sey Seybold Polysaccharide 00:00:00 - External Pneumococcal Vaccine, 2012-02-05 Completed Reji sey Seybold Polysaccharide 00:00:00 - External Pneumococcal Vaccine, 2012-02-05 Completed Reji sey Seybold Polysaccharide 00:00:00 - External Pneumococcal Vaccine, 2012-02-05 Completed Reji sey Seybold Polysaccharide 00:00:00 - External pneumococcal pneumococcal 2012-02-05 Completed [facility] polysaccharide PPV23 polysaccharide PPV23 00:00:00 Practice pneumococcal pneumococcal 2012-02-05 Completed [facility] polysaccharide PPV23 polysaccharide PPV23 00:00:00 Practice pneumococcal pneumococcal 2012-02-05 Completed [facility] polysaccharide PPV23 polysaccharide PPV23 00:00:00 Practice pneumococcal pneumococcal 2012-02-05 Completed [facility] polysaccharide PPV23 polysaccharide PPV23 00:00:00 Practice Influenza, Seasonal, 2011-11-10 Completed Ana ey Seybold Injectable 00:00:00 - External Influenza, Seasonal, 2011-11-10 Completed Ana ey Seybold Injectable 00:00:00 - External Influenza, Seasonal, 2011-11-10 Completed Ana ey Seybold Injectable 00:00:00 - External Influenza, Seasonal, 2011-11-10 Completed Ana ey Seybold Injectable 00:00:00 - External Influenza, Seasonal, 2011-11-10 Completed Ana ey Seybold Injectable 00:00:00 - External influenza, seasonal, influenza, seasonal, 2011-11-10 Completed [facility] injectable injectable 00:00:00 Practice influenza, seasonal, influenza, seasonal, 2011-11-10 Completed [facility] injectable injectable 00:00:00 Practice influenza, seasonal, influenza, seasonal, 2011-11-10 Completed [facility] injectable injectable 00:00:00 Practice influenza, seasonal, influenza, seasonal, 2011-11-10 Completed [facility] injectable injectable 00:00:00 Practice Td (adult), 2 Lf 2008-06-19 Completed Patti S eybold tetanus toxoid, 00:00:00 - Externa l preservative free, adsorbed Td (adult) 2008-06-19 Completed Patti Seybold 00:00:00 - External Td (adult), 2 Lf 2008-06-19 Completed Patti S eybold tetanus toxoid, 00:00:00 - Externa l preservative free, adsorbed Td (adult) 2008-06-19 Completed Patti Seybold 00:00:00 - External Td (adult), 2 Lf 2008-06-19 Completed Patti S eybold tetanus toxoid, 00:00:00 - Externa l preservative free, adsorbed Td (adult) 2008-06-19 Completed Patti Seybold 00:00:00 - External Td (adult), 2 Lf 2008-06-19 Completed Patti S eybold tetanus toxoid, 00:00:00 - Externa l preservative free, adsorbed Td (adult) 2008-06-19 Completed Patti Juarezybold 00:00:00 - External Td (adult), 2 Lf 2008-06-19 Completed Patti S eybold tetanus toxoid, 00:00:00 - Externa l preservative free, adsorbed Td (adult) 2008-06-19 Completed Patti Seybold 00:00:00 - External Td (adult) Td (adult) 2008-06-19 Completed [facility] 00:00:00 Practice Td (adult), adsorbed Td (adult), adsorbed 2008-06-[address] [facility] 00:00:00 Practice Td (adult) Td (adult) 2008-06-[address] [facility] 00:00:00 Practice Td (adult), adsorbed Td (adult), adsorbed 2008-06-19 Completed [facility] 00:00:00 Practice Td (adult) Td (adult) 2008-06-19 Completed [facility] 00:00:00 Practice Td (adult), adsorbed Td (adult), adsorbed 2008-06-19 Completed [facility] 00:00:00 Practice Td (adult) Td (adult) 2008-06-19 Completed [facility] 00:00:00 Practice Td (adult), adsorbed Td (adult), adsorbed 2008-06-[address] [facility] 00:00:00 Practice Influenza, Seasonal, 2006-11-28 Completed Ana bullock Seybold Injectable, 00:00:00 - External Preservative Free Influenza, Seasonal, 2006-11-28 Completed Ana ey Seybold Injectable, 00:00:00 - External Preservative Free Influenza, Seasonal, 2006-11-28 Completed Ana ey Seybold Injectable, 00:00:00 - External Preservative Free Influenza, Seasonal, 2006-11-28 Completed Ana ey Seybold Injectable, 00:00:00 - External Preservative Free Influenza, Seasonal, 2006-11-28 Completed Ana ey Seybold Injectable, 00:00:00 - External Preservative Free influenza, seasonal, influenza, seasonal, 2006-11-28 Completed [facility] injectable, injectable, 00:00:00 Practice preservative free preservative free influenza, seasonal, influenza, seasonal, 2006-11-[address] [facility] injectable, injectable, 00:00:00 Practice preservative free preservative free influenza, seasonal, influenza, seasonal, 2006-11-[address] [facility] injectable, injectable, 00:00:00 Practice preservative free preservative free influenza, seasonal, influenza, seasonal, 2006-11-[address] [facility] injectable, injectable, 00:00:00 Practice preservative free preservative free Pneumococcal Vaccine, 2005-08-02 Completed Reji sey Seybold Polysaccharide 00:00:00 - External Pneumococcal Vaccine, 2005-08-02 Completed Reji sey Seybold Polysaccharide 00:00:00 - External Pneumococcal Vaccine, 2005-08-02 Completed Reji sey Seybold Polysaccharide 00:00:00 - External Pneumococcal Vaccine, 2005-08-02 Completed Reji sey Seybold Polysaccharide 00:00:00 - External Pneumococcal Vaccine, 2005-08-02 Completed Reji sey Seybold Polysaccharide 00:00:00 - External pneumococcal pneumococcal 2005-08-02 Completed [facility] perico polysaccharide PPV23 polysaccharide PPV23 00:00:00 Practice pneumococcal pneumococcal 2005-08-02 Completed [facility] perico polysaccharide PPV23 polysaccharide PPV23 00:00:00 Practice pneumococcal pneumococcal 2005-08-02 Completed [facility] perico polysaccharide PPV23 polysaccharide PPV23 00:00:00 Practice pneumococcal pneumococcal 2005-08-02 Completed [facility] perico polysaccharide PPV23 polysaccharide PPV23 00:00:00 Practice Vital Signs Vital Name Observation Time Observation Value Comments Source Body height 2023-05-28 19:41:00 165.1 cm Patti S eybold - External Body weight 2023-05-28 19:41:00 92.987 kg Patti S eybold - External BMI 2023-05-28 19:41:00 34.11 kg/m2 Patti S eybold - External Systolic blood 2023-05-22 20:11:00 142 mm[Hg] Patti Seybold - pressure External Diastolic blood 2023-05-22 20:11:00 83 mm[Hg] Rejise y Seybold - pressure External Heart rate 2023-05-22 20:11:00 98 /min Patti S eybold - External Body temperature 2023-05-22 20:11:00 37.06 Rachel Ana ey Seybold - External Respiratory rate 2023-05-22 20:11:00 14 /min Ana ey Seybold - External Body height 2023-05-22 20:11:00 165.1 cm Patti Oates eybold - External Body weight 2023-05-22 20:11:00 91.627 kg Patti Oates eybold - External BMI 2023-05-22 20:11:00 33.61 kg/m2 Patti Oates eybold - External Oxygen saturation in 2023-05-22 20:11:00 99 /min Patti Hare - Arterial blood by External Pulse oximetry Systolic blood 2023-04-24 18:13:00 124 mm[Hg] Patti Seybold - pressure External Diastolic blood 2023-04-24 18:13:00 64 mm[Hg] Raven y Seybold - pressure External Heart rate 2023-04-24 18:13:00 74 /min Patti S eybold - External Body temperature 2023-04-24 18:13:00 36.44 Rachel Ana ey Seybold - External Respiratory rate 2023-04-24 18:13:00 20 /min Ana ey Seybold - External Body height 2023-04-24 18:13:00 165.1 cm Patti S eybold - External Body weight 2023-04-24 18:13:00 91.808 kg Patti S eybold - External BMI 2023-04-24 18:13:00 33.68 kg/m2 Patti Oates eybold - External Oxygen saturation in 2023-04-24 18:13:00 97 /min Patti Hare - Arterial blood by External Pulse oximetry Body height 2023-04-19 15:06:00 162.6 cm Patti bullockbold - External Body weight 2023-04-19 15:06:00 91.264 kg Patti Oates eybold - External BMI 2023-04-19 15:06:00 34.54 kg/m2 Patti Oates eybold - External Systolic blood 2023-02-22 14:11:00 143 mm[Hg] Patti Seybold - pressure External Diastolic blood 2023-02-22 14:11:00 68 mm[Hg] Raven mcbride Seybold - pressure External Heart rate 2023-02-22 14:11:00 83 /min Patti bullockbold - External Body temperature 2023-02-22 14:11:00 36.56 Rachel Ana bullock Seybold - External Respiratory rate 2023-02-22 14:11:00 16 /min Ana bullock Seybold - External Body height 2023-02-22 14:11:00 162.6 cm Patti bullockbold - External Body weight 2023-02-22 14:11:00 92.08 kg Patti Oates eybold - External BMI 2023-02-22 14:11:00 34.84 kg/m2 Patti bullockbofelicia - External Oxygen saturation in 2023-02-22 14:11:00 100 /min Patti Hare - Arterial blood by External Pulse oximetry Systolic blood 2023-01-28 18:45:00 151 mm[Hg] [facility] Diastolic blood 2023-01-28 18:45:00 73 mm[Hg] [facility] Heart rate 2023-01-28 18:44:00 72 /min [facility] Body temperature 2023-01-28 18:44:00 36.83 Rachel [facility] 2023-01-28 18:44:00 16 /min [facility] Body weight 2023-01-28 18:44:00 90.719 kg [facility] Oxygen saturation in 2023-01-28 18:44:00 97 /min [facility] Arterial blood by [facility] Pulse oximetry Branch BP Diastolic 2022-11-30 00:00:00 78 mm[Hg] [facility] Height 2022-11-30 00:00:00 63 [in_i] [facility] BMI (Body Mass 2022-11-30 00:00:00 36.5 kg/m2 [facility] BP Systolic 2022-11-30 00:00:00 142 mm[Hg] [facility] Body Weight 2022-11-30 00:00:00 206 [lb_av] [facility] BP Diastolic 2022-11-02 00:00:00 58 mm[Hg] [facility] Height 2022-11-02 00:00:00 63 [in_i] [facility] BMI (Body Mass 2022-11-02 00:00:00 36.8 kg/m2 [facility] BP Systolic 2022-11-02 00:00:00 126 mm[Hg] [facility] Body Weight 2022-11-02 00:00:00 208 [lb_av] [facility] BP Diastolic 2022-10-23 00:00:00 64 mm[Hg] [facility] Height 2022-10-23 00:00:00 63 [in_i] [facility] BMI (Body Mass 2022-10-23 00:00:00 36.8 kg/m2 [facility] BP Systolic 2022-10-23 00:00:00 118 mm[Hg] [facility] Body Weight 2022-10-23 00:00:00 208 [lb_av] [facility] Height 2022-06-14 00:00:00 63 [in_i] [facility] BMI (Body Mass 2022-06-14 00:00:00 36 kg/m2 [facility] Body Weight 2022-06-14 00:00:00 203 [lb_av] [facility] BP Diastolic 2022-03-07 00:00:00 66 mm[Hg] [facility] Height 2022-03-07 00:00:00 63 [in_i] [facility] BMI (Body Mass 2022-03-07 00:00:00 36.2 kg/m2 [facility] BP Systolic 2022-03-07 00:00:00 124 mm[Hg] [facility] Body Weight 2022-03-07 00:00:00 204.6 [lb_av] [facility] BP Diastolic 2021-10-27 00:00:00 68 mm[Hg] [facility] Height 2021-10-27 00:00:00 63 [in_i] [facility] BMI (Body Mass 2021-10-27 00:00:00 35.3 kg/m2 [facility] BP Systolic 2021-10-27 00:00:00 130 mm[Hg] [facility] Body Weight 2021-10-27 00:00:00 199 [lb_av] [facility] BP Diastolic 2021-07-05 00:00:00 64 mm[Hg] [facility] Height 2021-07-05 00:00:00 63 [in_i] [facility] BMI (Body Mass 2021-07-05 00:00:00 33.8 kg/m2 [facility] BP Systolic 2021-07-05 00:00:00 132 mm[Hg] [facility] Body Weight 2021-07-05 00:00:00 191 [lb_av] [facility] BP Diastolic 2021-06-27 00:00:00 62 mm[Hg] [facility] Height 2021-06-27 00:00:00 63 [in_i] [facility] BMI (Body Mass 2021-06-27 00:00:00 33.3 kg/m2 [facility] BP Systolic 2021-06-27 00:00:00 130 mm[Hg] [facility] Body Weight 2021-06-27 00:00:00 188 [lb_av] [facility] BP Diastolic 2021-05-26 00:00:00 80 mm[Hg] [facility] Height 2021-05-26 00:00:00 63 [in_i] [facility] BMI (Body Mass 2021-05-26 00:00:00 33.3 kg/m2 [facility] BP Systolic 2021-05-26 00:00:00 152 mm[Hg] [facility] Body Weight 2021-05-26 00:00:00 188 [lb_av] [facility] BP Diastolic 2021-03-22 00:00:00 78 mm[Hg] [facility] Height 2021-03-22 00:00:00 63 [in_i] [facility] BMI (Body Mass 2021-03-22 00:00:00 32.1 kg/m2 [facility] BP Systolic 2021-03-22 00:00:00 138 mm[Hg] [facility] Body Weight 2021-03-22 00:00:00 181 [lb_av] [facility] BP Diastolic 2021-02-22 00:00:00 80 mm[Hg] [facility] Height 2021-02-22 00:00:00 63 [in_i] [facility] BMI (Body Mass 2021-02-22 00:00:00 31.7 kg/m2 [facility] BP Systolic 2021-02-22 00:00:00 140 mm[Hg] [facility] Body Weight 2021-02-22 00:00:00 179 [lb_av] [facility] BP Diastolic 2020-11-15 00:00:00 80 mm[Hg] [facility] Height 2020-11-15 00:00:00 63 [in_i] [facility] BP Systolic 2020-11-15 00:00:00 156 mm[Hg] [facility] BP Diastolic 2020-10-19 00:00:00 73 mm[Hg] [facility] Height 2020-10-19 00:00:00 63 [in_i] [facility] BMI (Body Mass 2020-10-19 00:00:00 31.4 kg/m2 [facility] BP Systolic 2020-10-19 00:00:00 153 mm[Hg] [facility] Body Weight 2020-10-19 00:00:00 177 [lb_av] [facility] BP Diastolic 2020-10-15 00:00:00 83 mm[Hg] [facility] Height 2020-10-15 00:00:00 63 [in_i] [facility] BMI (Body Mass 2020-10-15 00:00:00 31.5 kg/m2 [facility] BP Systolic 2020-10-15 00:00:00 178 mm[Hg] [facility] Body Weight 2020-10-15 00:00:00 177.8 [lb_av] [facility] BP Diastolic 2020-09-21 00:00:00 84 mm[Hg] [facility] Height 2020-09-21 00:00:00 63 [in_i] [facility] Practice BMI (Body Mass 2020-09-21 00:00:00 32.6 kg/m2 [facility] Index) Practice BP Systolic 2020-09-21 00:00:00 154 mm[Hg] [facility] Body Weight 2020-09-21 00:00:00 184 [lb_av] [facility] Height 2020-08-05 00:00:00 63 [in_i] [facility] Height 2020-07-14 00:00:00 63 [in_i] [facility] Practice BMI (Body Mass 2020-07-14 00:00:00 32.2 kg/m2 [facility] Family Index) Practice Body Weight 2020-07-14 00:00:00 182 [lb_av] [facility] Procedures Procedure Date / Time Performing Clinician Source Performed [facility] 2023-02-22 15:32:38 Jesus Thao ld - External Screening for Malignant 2022-11-02 00:00:00 [facility] Bone Density Scan 2022-11-02 00:00:00 [facility] bone density 2022-11-02 00:00:00 [facility] MAMMO, screening, digital, 2022-11-02 00:00:00 [facility] bilateral Practice DEXA, axial skeleton 2022-11-02 00:00:00 [facility] XR, hip, unilateral 2022-11-02 00:00:00 [facility] US, breast, bilateral 2022-10-12 00:00:00 [facility] Mammography 2022-10-12 00:00:00 [facility] MAMMO, diagnostic, digital, 2022-10-11 00:00:00 [facility] bilateral Practice US, breast, bilateral 2022-03-07 00:00:00 [facility] electrocardiogram 2022-03-07 00:00:00 [facility] MAMMO, unilateral, left and 2022-03-07 00:00:00 [facility] US, breast, left Practice Ophthalmic Examination and 2021-09-22 00:00:00 [facility] Evaluation Practice X-RAY OF KNEE 3 VIEW 2021-05-26 00:00:00 [facility] MAMMO, unilateral, left and 2021-05-03 00:00:00 [facility] US, breast, left Practice Mohs Surgery 2021-03-26 00:00:00 [facility] Practice MAMMO, diagnostic, bilateral 2021-03-15 00:00:00 [facility] electrocardiogram 2021-02-22 00:00:00 [facility] perico [facility] MAMMO, diagnostic, digital, 2021-02-22 00:00:00 [facility] bilateral Practice MAMMO, screening, bilateral 2020-11-10 00:00:00 [facility] Mammography 2019-10-14 00:00:00 [facility] Practice Colonoscopy 2016-05-31 00:00:00 [facility] Extraction of Cataract 2012-11-26 00:00:00 [facility] Back Surgery 2009-06-30 00:00:00 [facility] Practice Total Replacement of Hip 2007-11-26 00:00:00 [facility] Hysterectomy (Total) 1999-11-26 00:00:00 [facility] Plan of Care Planned Activity Planned Date Details Comments Source Diagnostic Test 2022-11-30 noninvasive [facility] Pending 00:00:00 colorectal cancer Practice DNA + occult blood screening, QL, stool [code = noninvasive colorectal cancer DNA + occult blood screening, QL, stool] Instructions [facility] Encounters Start End Encounter Admission Attending Care Care Encounter Source Date/Time Date/Time Type Type Clinicians Facility Department ID 2023-06-28 2023-06-28 Outpatient PATTI THAO [id number] Patti 14:15:00 14:15:00 JESUS Seybol d 2023-05-28 2023-05-28 Outpatient PATTI KING [id number] Patti 14:20:00 14:20:00 DB Seyb old 2023-05-22 2023-05-22 Outpatient PATTI THAO [id number] Patti 15:15:00 15:15:00 JESUS Seybol d 2023-05-17 2023-05-17 Outpatient PATTI THAO [id number] Patti 00:00:00 00:00:00 JESUS Seybol d 2023-05-04 2023-05-04 Outpatient PATTI THAOSEY [id number] Patti 00:00:00 00:00:00 JESUS Seybol d 2023-05-02 2023-05-02 Outpatient PREZASPATTI [id number] Patti 00:00:00 00:00:00 JESUS Seybol d 2023-04-24 2023-04-24 Outpatient LAB90 PATTI MCDOWELL [id number] Patti 14:15:00 14:15:00 Seybol d 2023-04-24 2023-04-24 Outpatient PREZASPATTI [id number] Patti 13:45:00 13:45:00 JESUS Seybol d 2023-04-19 2023-04-19 Outpatient GREGORYPATTI [id number] Patti 10:10:00 10:10:00 NEHA Seybol d 2023-04-16 2023-04-16 Outpatient PREZASPATTI [id number] Patti 00:00:00 00:00:00 JESUS Seybol d 2023-04-13 2023-04-13 Outpatient PREZASPATTI [id number] Patti 00:00:00 00:00:00 JESUS Seybol d 2023-04-12 2023-04-12 Outpatient PATTI MCDOWELL [id number] Patti 16:30:00 16:30:00 Seybol d 2023-04-12 2023-04-12 Outpatient PATTI MCDOWELL [id number] Patti 16:25:00 16:25:00 Seybol d 2023-04-12 2023-04-12 Outpatient PATTI MCDOWELL [id number] Patti 16:20:00 16:20:00 Seybol d 2023-04-05 2023-04-05 Outpatient Shahid_S VFP VFP [id number] [facility] 00:00:00 00:00:00 [id number] [facility] Pract[facility] e 2023-04-04 2023-04-04 Outpatient PREPATTI CHO [id number] Patti 00:00:00 00:00:00 JESUS Seybol d 2023-03-23 2023-03-23 Outpatient PREPATTI CHO [id number] Patti 00:00:00 00:00:00 JESUS Seybol d 2023-03-22 2023-03-22 Outpatient PREPATTI CHO PATTI [id number] Patti 13:45:00 13:45:00 JESUS Seybol d 2023-03-07 2023-03-07 Outpatient PREZAИван PATTI PATTI [id number] Patti 00:00:00 00:00:00 JESUS Seybol d 2023-02-26 2023-02-26 Outpatient PREZAИван PATTI MCDOWELL [id number] Patti 00:00:00 00:00:00 JESUS Seybol d 2023-02-22 2023-02-22 Outpatient LAB90 PATTI MCDOWELL [id number] Patti 11:15:00 11:15:00 Seybol d 2023-02-22 2023-02-22 Outpatient PRETAMMIE PATTI MCDOWELL [id number] Patti 10:15:00 10:15:00 JESUS Seybol d 2023-01-28 2023-01-28 Nurse Nurse, [facility] [id number] Univers 12:30:00 12:50:00 Visit Unknown, Attending HEALTH [id number] [facility] [id number] Julio as MARIANA?BLEA [id number] [address] MEDICAL OFFICE [facility] 2023-01-28 2023-01-28 Outpatient Rama LI, [facility] [id number] Univers 12:30:00 12:30:00 DAREN lee [facility] 2023-01-19 2023-01-19 Outpatient Shahid_S VFP VFP [id number] [place] 00:00:00 00:00:00 [id number] Family Practic e 2022-12-13 2022-12-13 Outpatient Shahid_S VFP VFP [id number] -[id number] [place] 00:00:00 00:00:00 [id number] Family Practic e 2022-12-13 2022-12-13 Outpatient Shahid_S VFP VFP [id number] -[id number] [place] 00:00:00 00:00:00 [id number] Family Practic e 2022-12-08 2022-12-08 Outpatient Shahid_S VFP VFP [id number] 12-15 [facility] 00:00:00 00:00:00 [id number] Family Practic e 2022-12-08 2022-12-08 Outpatient Shahid_S VFP VFP [id number] 12-15 [facility] 00:00:00 00:00:00 [id number] Family Practic e 2022-11-30 2022-11-30 Consuelo Kelly VFP [place] - [id number] [facility] 00:00:00 00:00:00 Noel Heredia y : Medical - [facility] [place] - e [facility], [facility] [address], [facility], [facility] [address] , Ph. 2022-11-22 2022-11-22 Outpatient Levins_J VFP VFP [id number] 12-15 [facility] 00:00:00 00:00:00 [id number] Family Practic e 2022-11-22 2022-11-22 Outpatient Levins_J VFP VFP [id number] 12-15 [facility] 00:00:00 00:00:00 [id number] Family Practic e 2022-11-02 2022-11-02 Outpatient Levins_J VFP VFP [id number] 12-15 [facility] 00:00:00 00:00:00 [id number] Family Practic e 2022-11-02 2022-11-02 Outpatient Levins_J VFP VFP [id number] 12-15 [facility] 00:00:00 00:00:00 [id number] Family Practic e 2022-11-02 2022-11-02 Outpatient Levins_J VFP VFP [id number] 12-15 [facility] 00:00:00 00:00:00 [id number] Family Practic e 2022-11-02 2022-11-02 Outpatient Levins_J VFP VFP [id number] 12-15 [facility] 00:00:00 00:00:00 [id number] Family Practic e 2022-11-02 2022-11-02 Outpatient Levins_J VFP VFP [id number] 12-15 [facility] 00:00:00 00:00:00 [id number] Family Practic e 2022-11-02 2022-11-02 Outpatient Levins_J VFP VFP [id number] 12-15 [facility] 00:00:00 00:00:00 [id number] Family Practic e 2022-11-02 2022-11-02 Outpatient Levins_J VFP VFP [id number] 12-15 [facility] 00:00:00 00:00:00 [id number] Family Practic e 2022-11-02 2022-11-02 Consuelo Ochoae VFP [place] - [id number] [facility] 00:00:00 00:00:00 Noel Heredia MD: [id number] Medical - Prac [facility], _HOU[address], [facility] [address] , Ph. 2022-10-26 2022-10-26 Outpatient Levins_J VFP VFP [id number] 12-15 [facility] 00:00:00 00:00:00 [id number] Family Practic e 2022-10-23 2022-10-23 Outpatient Levins_J VFP VFP [id number] 12-15 [facility] 00:00:00 00:00:00 [id number] Family Practic e 2022-10-23 2022-10-23 Amada VFP [place] - [id number] V illage 00:00:00 00:00:00 [facility]ALITY MANAGER: [id number] Medical - Prac [facility], _HOU[address], [facility] [address] , Ph. 2022-07-18 2022-07-18 Outpatient Levins_J VFP VFP [id number] 12-15 [facility] 00:00:00 00:00:00 [id number] Family Practic e 2022-06-30 2022-06-30 Outpatient Levins_J VFP VFP [id number] 12-15 [facility] 00:00:00 00:00:00 [id number] Family Practic e 2022-06-14 2022-06-14 Outpatient Levins_J VFP VFP [id number] 12-15 [facility] 09:08:00 09:08:00 [id number] Family Practic e 2022-06-14 2022-06-14 Xuan VFP [place] - [id number] V illage 00:00:00 00:00:00 [facility] Chiang Medical - Prac [facility] SOFTWARE QUALITY MANAGER: [id number] _HOU_Memo [facility] [address], [place] [address] , Ph. 2022-05-23 2022-05-23 Outpatient Levins_J VFP VFP [id number] 12-15 [facility] 02:28:00 02:28:00 [id number] Family Practic e 2022-05-22 2022-05-22 Outpatient Levins_J VFP VFP [id number] 12-15 [facility] 01:06:00 01:06:00 [id number] Family Practic e 2022-05-22 2022-05-22 Viridiana VFP [place] - [id number] V illage 00:00:00 00:00:00 [facility] Kurt Block MD: [id number] Alec Lerma [facility], Clinical [address], [place] [address] , Ph. 2022-04-03 2022-04-03 Outpatient Levins_J VFP VFP [id number] 12-15 [facility] 10:33:00 10:33:00 [id number] Family Practic e 2022-03-07 2022-03-07 Outpatient Levins_J VFP VFP [id number] 12-15 [facility] 02:21:00 02:21:00 [id number] Family Practic e 2022-03-07 2022-03-07 Viridiana P [place] - [id number] V illage 00:00:00 00:00:00 [facility] MckaylaKurt MD: [id number] Alec Lerma [facility], Clinical [address], [place] [address] , Ph. 2021-11-05 2021-11-05 Outpatient Levins_J VFP VFP [id number] 12-15 [facility] 05:09:00 05:09:00 [id number] Family Practic e 2021-11-04 2021-11-04 Outpatient Levins_J VFP VFP [id number] 12-15 [facility] 02:44:00 02:44:00 [id number] Family Practic e 2021-10-27 2021-10-27 Outpatient Levins_J VFP VFP [id number] 12-15 [facility] 01:55:00 01:55:00 [id number] Family Practic e 2021-10-27 2021-10-27 Viridiana VFP [place] - [id number] V illage 00:00:00 00:00:00 [facility] Kurt Ríos MD: [id number] Gladys Bishop [facility], Clinical [address], [place] [address] , Ph. 2021-07-06 2021-07-06 Outpatient Levins_J VFP VFP [id number] 12-15 [facility] 01:30:00 01:30:00 [id number] Family Practic e 2021-07-05 2021-07-05 Outpatient Levins_J VFP VFP [id number] 12-15 [facility] 02:12:00 02:12:00 [id number] Family Practic e 2021-07-05 2021-07-05 [facility]-Marija VFP [place] - [id number] [facility] 00:00:00 00:00:00 Maribeth Hayden [facility] Fami ly PA: [id number] Kurt Crandall [facility] [address], [facility] [address] , Ph. 2021-06-27 2021-06-27 Outpatient Levins_J VFP VFP [id number] 12-15 [facility] 01:14:00 01:14:00 [id number] Family Practic e 2021-06-27 2021-06-27 Viridiana VFP [place] - [id number] V illage 00:00:00 00:00:00 [facility] Kurt Ríos MD: [id number] Gladys Bishop [facility], Clinical [address], [place] [address] , Ph. 2021-06-15 2021-06-15 Outpatient Levins_J VFP VFP [id number] 12-15 [facility] 01:57:00 01:57:00 [id number] Family Practic e 2021-06-01 2021-06-01 Outpatient Levins_J VFP VFP [id number] 12-15 [facility] 04:42:00 04:42:00 [id number] Family Practic e 2021-05-28 2021-05-28 Outpatient Levins_J VFP VFP [id number] 12-15 [facility] 04:52:00 04:52:00 [id number] Family Practic e 2021-05-26 2021-05-26 Outpatient Levins_J VFP VFP [id number] 12-15 [facility] 02:42:00 02:42:00 [id number] Family Practic e 2021-05-26 2021-05-26 Yuval F VFP [place] - [id number] [facility] 00:00:00 00:00:00 Shweta SOFTWARE QUALITY MANAGER: [facility] [address] [facility], _HOU_Memo e [address], [facility] [address] , Ph. 2021-03-22 2021-03-22 Outpatient Levins_J VFP VFP [id number] 12-15 [facility] 11:59:00 11:59:00 [id number] Family Practic e 2021-03-22 2021-03-22 Brett-Marija VFP [place] - [id number] [facility] 00:00:00 00:00:00 Maribeth Hayden, [facility] ly PA: [id number] Kurt - [facility] kaden [facility]_HOU_Memo [facility] [address], [facility] [address] , Ph. 2021-03-02 2021-03-02 Outpatient Levins_J VFP VFP [id number] 12-15 [facility] 02:59:00 02:59:00 [id number] Family Practic e 2021-02-25 2021-02-25 Outpatient Levins_J VFP VFP [id number] 12-15 [facility] 04:46:00 04:46:00 [id number] Family Practic e 2021-02-22 2021-02-22 Outpatient Levins_J VFP VFP [id number] - [facility] 04:45:00 04:45:00 [id number] Family Practic e 2021-02-22 2021-02-22 Viridiana VFP [place] - [id number] V illage 00:00:00 00:00:00 Miguel [facility] Kurt Ríos MD: [id number] VM_HOU_Memo e [facility], Clinical [address], [place] [address] , Ph. 2020-11-22 2020-11-22 Outpatient Levins_J VFP VFP [id number] 12-15 [facility] 06:15:00 06:15:00 [id number] Family Practic e 2020-11-19 2020-11-19 Outpatient Levins_J VFP VFP [id number] 12-15 [facility] 09:07:00 09:07:00 [id number] Family Practic e 2020-11-18 2020-11-18 Outpatient Levins_J VFP VFP [id number] 12-15 [facility] 11:26:00 11:26:00 [id number] Family Practic e 2020-11-16 2020-11-16 Outpatient Levins_J VFP VFP [id number] 12-15 [facility] 12:49:00 12:49:00 [id number] Family Practic e 2020-11-15 2020-11-15 Outpatient Levins_J VFP VFP [id number] 12-15 [facility] 10:40:00 10:40:00 [id number] Family Practic e 2020-11-15 2020-11-15 Xuan VFP [place] - [id number] V illage 00:00:00 00:00:00 [facility], Medical - Prac tic SOFTWARE QUALITY MANAGER: [id number] VM_HOU_Memo e Maria Guadalupe [facility], Clinical [address], [place] [address] , Ph. 2020-10-22 2020-10-22 Outpatient Levins_J VFP VFP [id number] 12-15 [facility] 03:05:00 03:05:00 [id number] Family Practic e 2020-10-19 2020-10-19 Outpatient Levins_J VFP VFP [id number] 12-15 [facility] 05:18:00 05:18:00 [id number] Family Practic e 2020-10-19 2020-10-19 Xuan VFP [place] - [id number] V illage 00:00:00 00:00:00 [facility], Medical - Prac tic SOFTWARE QUALITY MANAGER: [id number] VM_HOU_Memo e Maria Guadalupe [facility], Clinical [address], [place] [address] , Ph. 2020-10-15 2020-10-15 Outpatient Levins_J VFP VFP [id number] 12-15 [facility] 04:11:00 04:11:00 Family Practic e 2020-10-15 2020-10-15 Ester VFP [place] - [id number] V illage 00:00:00 00:00:00 [facility] Medical - Pract deangelo WAITE: [id number] SARA_HOU_Memo alice Bishop [facility], Clinical [address], [place] [address] , Ph. 2020-10-13 2020-10-13 Outpatient Levins_J VFP VFP [id number] -[id number] [facility] 02:34:00 02:34:00 [id number] Family Practic e 2020-10-04 2020-10-04 Outpatient Levins_J VFP VFP [id number] 20 [facility] 03:21:00 03:21:00 Family Practic e 2020-09-21 2020-09-21 Outpatient Levins_J VFP VFP [id number] 20 [facility] 03:19:00 03:19:00 [id number] Family Practic e 2020-09-21 2020-09-21 Viridiana VFP [place] - [id number] V illage 00:00:00 00:00:00 [facility] Mckayla Medical - Pracmary ann paniagua MD: [id number] SARA_HOU_Memo alice Bishop [facility], Clinical [address], [place] [address] , Ph. 2020-08-10 2020-08-10 Outpatient Levins_Jo VFP VFP [id number] 51-20 [facility] 09:38:00 09:38:00 [id number] Family Practic e 2020-08-05 2020-08-05 Outpatient Levins_Jo VFP VFP [id number] 51-20 [facility] 08:48:00 08:48:00 Family Practic e 2020-08-05 2020-08-05 Amada VFP [place] - [id number] V illage 00:00:00 00:00:00 Jolanta Sweet [facility] SOFTWARE QUALITY MANAGER: [id number] Medical - Prac kaden [place] Dario _HOU_Memo e [facility] [address], [facility] [address] , Ph. 2020-07-18 2020-07-18 Outpatient Levins_Jo VFP VFP [id number] 51-20 [facility] 02:41:00 02:41:00 Family Practic e 2020-07-16 2020-07-16 Outpatient Levins_Jo VFP VFP [id number] 51-20 [facility] 05:41:00 05:41:00 [id number] Family Practic e 2020-07-14 2020-07-14 Outpatient Levins_Jo VFP VFP [id number] 51-20 [facility] 09:12:00 09:12:00 [id number] Family Practic e 2020-07-14 2020-07-14 Ester VFP [place] - [id number] V illage 00:00:00 00:00:00 [facility] Tito, Medical - Pract deangelo WAITE: [id number] Alec Lerma [facility], Clinical [address], [place] [address] , Ph. 2020-07-02 2020-07-02 Outpatient Levins_Jo VFP VFP [id number] [facility] 01:42:00 01:42:00 [id number] Family Practic e Results Test Description Test Time Test Comments Results Result Comments Source [facility] 2023-02-22 15:33:00 Test Item Value Reference Range Interpretation Comme nts [employer] left side (test code 1.28 See_Comment [Automated message] The system = 31796-8U) which generated this result transmitted ref erence range: 1.40 - 0.90 NA. The re ference range was not used to interpr et this result as normal/abnormal . [facility] right [facility] (test 1.08 See_Comment P resentation Factors: Hypertension, code = 78303-4M) DiabetesExe rcise Modality: At RestNormal - 1. 40 - 1.00Borderline - 0.99 - 0.90Mild - 0.89 - 0.60Moderate - 0.59 - 0.30Severe - 0.29 - 0.00 [Au tomated message] The system which ge nerated this result transmitted ref erence range: 1.40 - 0.90 NA. The re ference range was not used to interpr et this result as normal/abnormal . Patti Hare - Externalpap, IG + HR [id number] 00:00:00 Test Item Value Reference Range Interpretation Comments Cytology report of Cervical or sprcs vaginal smear or scraping Cyto stain (test code = 62552-4) Statement of adequacy sprcs [Interpretation] of Cervical or vaginal smear or scraping by Cyto stain (test code = 43856-9) Diagnosis ICD code [Identifier] sprcs (test code = 73141-8) Child Welfare Specialist who read Cyto stain of rust Cervical or vaginal smear or scraping (test code = 02312-7) QC reviewed by: (test code = QC sprcs reviewed by:) Microscopic observation [Identifier] . in Specimen by Other stain (test code = 64623-9) note: (test code = note:) papsmr Cytology report of Cervical or focpap vaginal smear or scraping Cyto stain.thin prep (test code = 22976-4) Human papilloma virus positive negative A 31+33+35+39+45+51+52+56+58+59+66+68 DNA [Presence] in Cervix by WENDY with probe detection (test code = 97777-6) Human papilloma virus 16 DNA negative negative [Presence] in Cervix by WENDY with probe detection (test code = 99732-7) Human papilloma virus 18 DNA negative negative [Presence] in Cervix by WENDY with probe detection (test code = 16486-2) [facility], [id number] 17:06:00 Test Item Value Reference Range Interpretation Comments Occult Blood (test code = Occult negative Blood) [facility] CenterMicroalbumin/Creatinine [Mass Ratio] in [id number] 02:39:00 Test Item Value Reference Range Interpretation Comments creatinine, random urine (test 176 mg/dL 20-275 code = creatinine, random urine) albumin, urine (test code = 0.7 mg/dL see note: albumin, urine) albumin/creatinine ratio, 4 mcg/mg creat <30 random urine (test code = albumin/creatinine ratio, random urine) [facility] CenterLipid 1996 panel - Serum or [id number] 02:39:00 Test Item Value Reference Range Interpretation Comments cholesterol, total 208 mg/dL <200 H (test code = cholesterol, total) HDL cholesterol (test 68 mg/dL See_Comment [Auto mated code = HDL message] The sy stem cholesterol) which generated this result transmitted reference range : > or = 50. The reference range was not used to interpret this result as normal/abnormal . triglycerides (test 123 mg/dL <150 code = triglycerides) Cholesterol in LDL 117 mg/dL H [Mass/volume] in Serum (calc) or Plasma (test code = 2089-1) chol/HDLC ratio (test 3.1 (calc) <5.0 code = chol/HDLC ratio) non HDL cholesterol 140 mg/dL <130 H (test code = non HDL (calc) cholesterol) [facility] CenterComprehensive metabolic 2000 panel - Serum or Plasma 2021-10-19 02:39:00 Test Item Value Reference Range Interpretation Comments glucose (test code = 163 mg/dL 65-99 H glucose) urea nitrogen (BUN) 14 mg/dL 7-25 (test code = urea nitrogen (BUN)) creatinine (test 0.95 mg/dL 0.60-0.88 H code = creatinine) eGFR non-afr. 56 See_Comment L [Automated me ssage] south african (test code mL/min/1.73m2 The sys tem which = eGFR non-afr. generated th is south af[place]) result transmit ton reference range : > or = 60. The reference range was not used to interpret this result as normal/abnormal . eGFR 65 See_Comment [Automated mes adriano] south african (test code mL/min/1.73m2 The sys tem which = eGFR generated thi s south african) result transmit ton reference range : > or = 60. The reference range was not used to interpret this result as normal/abnormal . BUN/creatinine ratio 15 (calc) 6-22 (test code = BUN/creatinine ratio) sodium (test code = 144 mmol/L 135-146 sodium) potassium (test code 3.9 mmol/L 3.5-5.3 = potassium) chloride (test code 102 mmol/L 98-110 = chloride) carbon dioxide (test 34 mmol/L 20-32 H code = carbon dioxide) calcium (test code = 9.5 mg/dL 8.6-10.4 calcium) protein, total (test 6.5 g/dL 6.1-8.1 code = protein, total) albumin (test code = 4.2 g/dL 3.6-5.1 albumin) globulin (test code 2.3 g/dL 1.9-3.7 = globulin) (calc) albumin/globulin 1.8 (calc) 1.0-2.5 ratio (test code = albumin/globulin ratio) bilirubin, total 0.5 mg/dL 0.2-1.2 (test code = bilirubin, total) alkaline phosphatase 89 U/L 37-153 (test code = alkaline phosphatase) AST (test code = 15 U/L 10-35 AST) ALT (test code = 12 U/L 6-29 ALT) [facility] CenterHemoglobin A1c/Hemoglobin.total in [id number] 02:39:00 Test Item Value Reference Range Interpretation Comments Hemoglobin 7.9 % of total HGB <5.7 H A1c/Hemoglobin.total in Blood (test code = 4548-4) EAG (mg/dL) (test code = 180 (calc) EAG (mg/dL)) EAG (mmol/L) (test code = 10.0 (calc) EAG (mmol/L)) [facility] CenterThyrotropin [Units/volume] in Serum or [id number] 02:39:00 Test Item Value Reference Range Interpretation Comments TSH (test code = TSH) 1.73 mIU/L 0.40-4.50 [facility] CenterCBC W Auto Differential panel - [id number] 02:39:00 Test Item Value Reference Range Interpretation Comments white blood cell count (test 7.3 thousand/uL 3.8-10.8 code = white blood cell count) red blood cell count (test 4.62 million/uL 3.80-5.10 code = red blood cell count) hemoglobin (test code = 13.5 g/dL 11.7-15.5 hemoglobin) hematocrit (test code = 40.9 % 35.0-45.0 hematocrit) MCV (test code = MCV) 88.5 fL 80.0-100.0 MCH (test code = MCH) 29.2 pg 27.0-33.0 MCHC (test code = MCHC) 33.0 g/dL 32.0-36.0 RDW (test code = RDW) 13.0 % 11.0-15.0 platelet count (test code = 190 thousand/uL 140-400 platelet count) MPV (test code = MPV) 12.2 fL 7.5-12.5 absolute neutrophils (test 4300 cells/uL 4489-5039 code = absolute neutrophils) absolute lymphocytes (test 2000 cells/uL 850-3900 code = absolute lymphocytes) absolute monocytes (test code 708 cells/uL 200-950 = absolute monocytes) absolute eosinophils (test 219 cells/uL 15-500 code = absolute eosinophils) absolute basophils (test code 73 cells/uL 0-200 = absolute basophils) neutrophils (test code = 58.9 % neutrophils) lymphocytes (test code = 27.4 % lymphocytes) monocytes (test code = 9.7 % monocytes) eosinophils (test code = 3.0 % eosinophils) basophils (test code = 1.0 % basophils) [facility] CenterUrinalysis complete W Reflex Culture panel - Urine 2021-10-19 02:39:00 Test Item Value Reference Range Interpretation Comments color (test code = yellow yellow color) appearance (test code clear clear = appearance) specific gravity (test 1.016 1.001-1.035 code = specific gravity) pH (test code = pH) 7.0 5.0-8.0 glucose (test code = trace negative A glucose) bilirubin (test code = negative negative bilirubin) ketones (test code = negative negative ketones) occult blood (test negative negative code = occult blood) protein (test code = negative negative protein) nitrite (test code = negative negative nitrite) leukocyte esterase 2+ negative A (test code = leukocyte esterase) WBC (test code = WBC) 6-10 See_Comment A [Auto mated message] The system [employer] generated this result transmitted ref erence range: < or = 5 . The reference range was not used to int erpret this result as normal/abnormal . RBC (test code = RBC) 0-2 See_Comment [Auto mated message] The system [employer] generated this result transmitted ref erence range: < or = 2 . The reference range was not used to int erpret this result as normal/abnormal . squamous epithelial 0-5 See_Comment [Automa ton message] cells (test code = The syste m which squamous epithelial generate d this result cells) transmitted ref erence range: < or = 5 . The reference range was not used to int erpret this result as normal/abnormal . bacteria (test code = none seen none seen bacteria) hyaline cast (test none seen none seen code = hyaline cast) [facility] CenterBacteria identified in Urine by [id number] 02:39:00Reflexive Urine CultureWest Jefferson Medical CenterBacteria identified in Urine by [id number] 02:39:00Culture, Urine, RoutineVillage [facility]rett [facility] PracticePathology [id number] 15:47:00Clinical InformationPathologistViLivermore Sanitariumurgical pathology [id number] 15:47:00A SourceA ProcedureA Gross DescriptionA Micro DescriptionA DiagnosisViSan Antonio Community Hospitaltest in question- misc [id number] 16:37:00 Test Item Value Reference Range Interpretation Comments question/problem: (test code = question/problem:) question: (test code = doc on sample question:) comment (test code = comment) [facility] Centerfecal occult blood, [id number] 16:37:00Fecal Globin by Immunochem. (Medicare)[facility] Hospitaleprecated Calcidiol+Calciferol [Mass/volume] in Serum or [id number] 02:53:00 Test Item Value Reference Range Interpretation Comments vitamin D, 1,25 (oh)2, total (test 48 pg/mL 18-72 code = vitamin D, 1,25 (oh)2, total) vitamin D3, 1,25 (oh)2 (test code = 48 pg/mL vitamin D3, 1,25 (oh)2) vitamin D2, 1,25 (oh)2 (test code = <8 vitamin D2, 1,25 (oh)2) [facility] CenterProlactin [Mass/volume] in Serum or [id number] 02:53:00 Test Item Value Reference Range Interpretation Comments prolactin (test code = prolactin) 3.9 NG/mL [facility] CenterThyrotropin [Units/volume] in Serum or [id number] 16:38:00 Test Item Value Reference Range Interpretation Comments TSH (test code = TSH) 1.232 uIU/mL 0.350-4.940 [facility] CenterUrinalysis complete W Reflex Culture panel - Urine 2021-02-24 04:27:00 Test Item Value Reference Range Interpretation Comments color (test code = yellow yellow color) appearance (test code clear clear = appearance) specific gravity (test 1.020 1.001-1.035 code = specific gravity) pH (test code = pH) 5.5 5.0-8.0 glucose (test code = negative negative glucose) bilirubin (test code = negative negative bilirubin) ketones (test code = negative negative ketones) occult blood (test negative negative code = occult blood) protein (test code = negative negative protein) nitrite (test code = negative negative nitrite) leukocyte esterase 1+ negative A (test code = leukocyte esterase) WBC (test code = WBC) 6-10 See_Comment A [Auto mated message] The system [employer] generated this result transmitted ref erence range: < or = 5 . The reference range was not used to int erpret this result as normal/abnormal . RBC (test code = RBC) none seen See_Comment [Auto mated message] The system [employer] generated this result transmitted ref erence range: < or = 2 . The reference range was not used to int erpret this result as normal/abnormal . squamous epithelial 0-5 See_Comment [Automa ton message] cells (test code = The syste m which squamous epithelial generate d this result cells) transmitted ref erence range: < or = 5 . The reference range was not used to int erpret this result as normal/abnormal . bacteria (test code = none seen none seen bacteria) hyaline cast (test none seen none seen code = hyaline cast) [facility] CenterBacteria identified in Urine by [id number] 04:27:00Reflexive Urine CultureWest Jefferson Medical CenterBacteria identified in Urine by [id number] 04:27:00Culture, Urine, RoutineViSan Antonio Community HospitalUrinalysis complete W Reflex Culture panel - [id number] 04:27:00 Test Item Value Reference Range Interpretation Comments color (test code = yellow yellow color) appearance (test code clear clear = appearance) specific gravity (test 1.020 1.001-1.035 code = specific gravity) pH (test code = pH) 5.5 5.0-8.0 glucose (test code = negative negative glucose) bilirubin (test code = negative negative bilirubin) ketones (test code = negative negative ketones) occult blood (test negative negative code = occult blood) protein (test code = negative negative protein) nitrite (test code = negative negative nitrite) leukocyte esterase 1+ negative A (test code = leukocyte esterase) WBC (test code = WBC) 6-10 See_Comment A [Auto mated message] The system [employer] generated this result transmitted ref erence range: < or = 5 . The reference range was not used to int erpret this result as normal/abnormal . RBC (test code = RBC) none seen See_Comment [Auto mated message] The system whic h generated this result transmitted ref erence range: < or = 2 . The reference range was not used to int erpret this result as normal/abnormal . squamous epithelial 0-5 See_Comment [Automa ton message] cells (test code = The syste m which squamous epithelial generate d this result cells) transmitted ref erence range: < or = 5 . The reference range was not used to int erpret this result as normal/abnormal . bacteria (test code = none seen none seen bacteria) hyaline cast (test none seen none seen code = hyaline cast) [facility] by [id number] 04:27:00Reflexive Urine CultureViSan Antonio Community HospitalBacteria identified in Urine by [id number] 04:27:00Culture, Urine, RoutineViSan Antonio Community HospitalHemoglobin A1c/Hemoglobin.total in [id number] 13:32:00 Test Item Value Reference Range Interpretation Comments Hemoglobin A1c/Hemoglobin.total in 8.3 % 1.0-5.7 H Blood (test code = 4548-4) average blood glucose (calculation) 192 mg/dL (test code = average blood glucose (calculation)) [facility] 2000 [facility] - Serum or Plasma 2021-02-23 12:23:00 Test Item Value Reference Range Interpretation Comments ALT (test code = ALT) 27 U/L 0-55 AST (test code = AST) 19 U/L 5-34 BUN (test code = BUN) 15.2 mg/dL 9.8-25.0 alk phos (test code = alk 101 unit/L 40-150 phos) glucose (test code = 187 mg/dL 70-99 H glucose) albumin (test code = 4.0 g/dL 3.4-5.1 albumin) creatinine (test code = 0.97 mg/dL 0.57-1.11 creatinine) eGFR non- 55 mL/min/1.73m2 A (test code = eGFR non-) total bilirubin (test code = 0.5 mg/dL 0.2-1.2 total bilirubin) eGFR - >60 (test code = eGFR - ) sodium (test code = sodium) 143 mEq/L 135-145 potassium (test code = 3.3 mEq/L 3.5-5.3 L potassium) chloride (test code = 101 mmol/L 98-110 chloride) total protein (test code = 6.4 g/dL 6.1-8.2 total protein) calcium (test code = 9.0 mg/dL 8.6-10.4 calcium) CO2 (test code = CO2) 32.6 mmol/L 20.0-32.0 H anion gap (test code = anion 9 calc gap) [facility] - Serum or [id number] 12:23:00 Test Item Value Reference Range Interpretation Comments HDL (test code = HDL) 60 mg/dL triglyceride (test code = 128 mg/dL <150 triglyceride) VLDL (calculated) (test code = VLDL 26 mg/dL (calculated)) cholesterol/HDL ratio (test code = 3.6 mg/dL cholesterol/HDL ratio) non-HDL cholesterol (calculated) 157 mg/dL <160 (test code = non-HDL cholesterol (calculated)) cholesterol (test code = 217 mg/dL <200 H cholesterol) Cholesterol in LDL [Mass/volume] in 131 mg/dL <130 H Serum or Plasma (test code = 2089-1) [facility]/Creatinine [Mass Ratio] in [id number] 11:11:00 Test Item Value Reference Range Interpretation Comments microalbumin random urine 13 ug/mL (test code = microalbumin random urine) creatinine random urine (test 215.2 mg/dL 20.0-320.0 code = creatinine random urine) microalbumin/creatinine 6 mcg/mg creat (random urine) ratio calculated (test code = microalbumin/creatinine (random urine) ratio calculated) [facility]/Creatinine [Mass Ratio] in [id number] 11:11:00 Test Item Value Reference Range Interpretation Comments microalbumin random urine 13 ug/mL (test code = microalbumin random urine) creatinine random urine (test 215.2 mg/dL 20.0-320.0 code = creatinine random urine) microalbumin/creatinine 6 mcg/mg creat (random urine) ratio calculated (test code = microalbumin/creatinine (random urine) ratio calculated) [facility] CenterCB W Auto Differential panel - [id number] 10:31:00 Test Item Value Reference Range Interpretation Comments WBC (test code = WBC) 8.45 x10*3/?L 3.98-10.04 RBC (test code = RBC) 4.83 10*12/L 3.93-5.22 hemoglobin (test code = 13.70 g/dL 11.20-15.70 hemoglobin) hematocrit (test code = 43.0 % 34.1-44.9 hematocrit) MCV (test code = MCV) 89.0 fL 80.0-100.0 MCH (test code = MCH) 28.4 pg 25.6-32.2 MCHC (test code = MCHC) 31.9 g/dL 32.2-35.5 L RDW-SD (test code = RDW-SD) 45.6 fL 36.4-46.3 platelet count (test code = 184.0 k/uL 182.0-369.0 platelet count) MPV (test code = MPV) 12.5 fL 7.5-11.5 H neut% (test code = neut%) 67.8 % 34.0-71.1 lymph% (test code = lymph%) 22.0 % 19.3-51.7 mon% (test code = mon%) 7.6 % 4.7-12.5 eos% (test code = eos%) 1.3 % 0.7-5.8 baso% (test code = baso%) 0.9 % 0.1-1.2 neut# (test code = neut#) 5.7 x10*3/?L 1.6-6.1 lymph# (test code = lymph#) 1.9 x10*3/?L 1.2-3.7 mon# (test code = mon#) 0.6 x10*3/?L 0.2-0.9 eos# (test code = eos#) 0.11 x10*3/?L 0.04-0.36 baso# (test code = baso#) 0.08 x10*3/?L 0.01-0.08 [facility] W Auto Differential panel - [id number] 13:01:00 Test Item Value Reference Range Interpretation Comments WBC (test code = WBC) 8.92 x10*3/?L 3.98-10.04 RBC (test code = RBC) 4.46 10*12/L 3.93-5.22 hemoglobin (test code = 13.00 g/dL 11.20-15.70 hemoglobin) hematocrit (test code = 40.1 % 34.1-44.9 hematocrit) MCV (test code = MCV) 89.9 fL 80.0-100.0 MCH (test code = MCH) 29.1 pg 25.6-32.2 MCHC (test code = MCHC) 32.4 g/dL 32.2-35.5 RDW-SD (test code = RDW-SD) 45.8 fL 36.4-46.3 platelet count (test code = 171.0 k/uL 182.0-369.0 L platelet count) MPV (test code = MPV) 12.9 fL 7.5-11.5 H neut% (test code = neut%) 62.1 % 34.0-71.1 lymph% (test code = lymph%) 25.3 % 19.3-51.7 mon% (test code = mon%) 10.1 % 4.7-12.5 eos% (test code = eos%) 2.1 % 0.7-5.8 baso% (test code = baso%) 0.4 % 0.1-1.2 neut# (test code = neut#) 5.5 x10*3/?L 1.6-6.1 lymph# (test code = lymph#) 2.3 x10*3/?L 1.2-3.7 mon# (test code = mon#) 0.9 x10*3/?L 0.2-0.9 H eos# (test code = eos#) 0.19 x10*3/?L 0.04-0.36 baso# (test code = baso#) 0.04 x10*3/?L 0.01-0.08 [facility] W Auto Differential panel - [id number] 13:01:00 Test Item Value Reference Range Interpretation Comments WBC (test code = WBC) 8.92 x10*3/?L 3.98-10.04 RBC (test code = RBC) 4.46 10*12/L 3.93-5.22 hemoglobin (test code = 13.00 g/dL 11.20-15.70 hemoglobin) hematocrit (test code = 40.1 % 34.1-44.9 hematocrit) MCV (test code = MCV) 89.9 fL 80.0-100.0 MCH (test code = MCH) 29.1 pg 25.6-32.2 MCHC (test code = MCHC) 32.4 g/dL 32.2-35.5 RDW-SD (test code = RDW-SD) 45.8 fL 36.4-46.3 platelet count (test code = 171.0 k/uL 182.0-369.0 L platelet count) MPV (test code = MPV) 12.9 fL 7.5-11.5 H neut% (test code = neut%) 62.1 % 34.0-71.1 lymph% (test code = lymph%) 25.3 % 19.3-51.7 mon% (test code = mon%) 10.1 % 4.7-12.5 eos% (test code = eos%) 2.1 % 0.7-5.8 baso% (test code = baso%) 0.4 % 0.1-1.2 neut# (test code = neut#) 5.5 x10*3/?L 1.6-6.1 lymph# (test code = lymph#) 2.3 x10*3/?L 1.2-3.7 mon# (test code = mon#) 0.9 x10*3/?L 0.2-0.9 H eos# (test code = eos#) 0.19 x10*3/?L 0.04-0.36 baso# (test code = baso#) 0.04 x10*3/?L 0.01-0.08 [facility]Com[facility] 2000 [facility] - Serum or Plasma 2020-09-22 12:41:00 Test Item Value Reference Range Interpretation Comments ALT (test code = ALT) 18 U/L 0-55 AST (test code = AST) 17 U/L 5-34 BUN (test code = BUN) 15.7 mg/dL 9.8-25.0 alk phos (test code = alk 100 unit/L 40-150 phos) glucose (test code = 180 mg/dL 70-99 H glucose) albumin (test code = 3.7 g/dL 3.4-5.1 albumin) creatinine (test code = 1.26 mg/dL 0.57-1.11 H creatinine) eGFR non- 41 mL/min/1.73m2 A (test code = eGFR non-) total bilirubin (test code = 0.4 mg/dL 0.2-1.2 total bilirubin) eGFR - 49 mL/min/1.73m2 A (test code = eGFR - ) sodium (test code = sodium) 139 mEq/L 135-145 potassium (test code = 3.8 mEq/L 3.5-5.3 potassium) chloride (test code = 99 mmol/L 98-110 chloride) total protein (test code = 6.1 g/dL 6.1-8.2 total protein) calcium (test code = 9.0 mg/dL 8.6-10.4 calcium) CO2 (test code = CO2) 32.7 mmol/L 20.0-32.0 H anion gap (test code = anion 7 calc gap) [facility] 1995 [facility] - Serum or [id number] 12:41:00 Test Item Value Reference Range Interpretation Comments HDL (test code = HDL) 56 mg/dL triglyceride (test code = 111 mg/dL <150 triglyceride) VLDL (calculated) (test code = VLDL 22 mg/dL (calculated)) cholesterol/HDL ratio (test code = 3.6 mg/dL cholesterol/HDL ratio) non-HDL cholesterol (calculated) 145 mg/dL <160 (test code = non-HDL cholesterol (calculated)) cholesterol (test code = 201 mg/dL <200 H cholesterol) Cholesterol in LDL [Mass/volume] in 123 mg/dL <130 Serum or Plasma (test code = 2089-1) [facility] CenterThyrotropin [Units/volume] in Serum or [id number] 12:41:00 Test Item Value Reference Range Interpretation Comments TSH (test code = TSH) 1.385 uIU/mL 0.350-4.940 [facility]Com[facility] 1999 panel - Serum or Plasma 2020-09-22 12:41:00 Test Item Value Reference Range Interpretation Comments ALT (test code = ALT) 18 U/L 0-55 AST (test code = AST) 17 U/L 5-34 BUN (test code = BUN) 15.7 mg/dL 9.8-25.0 alk phos (test code = alk 100 unit/L 40-150 phos) glucose (test code = 180 mg/dL 70-99 H glucose) albumin (test code = 3.7 g/dL 3.4-5.1 albumin) creatinine (test code = 1.26 mg/dL 0.57-1.11 H creatinine) eGFR non- 41 mL/min/1.73m2 A (test code = eGFR non-) total bilirubin (test code = 0.4 mg/dL 0.2-1.2 total bilirubin) eGFR - 49 mL/min/1.73m2 A (test code = eGFR - ) sodium (test code = sodium) 139 mEq/L 135-145 potassium (test code = 3.8 mEq/L 3.5-5.3 potassium) chloride (test code = 99 mmol/L 98-110 chloride) total protein (test code = 6.1 g/dL 6.1-8.2 total protein) calcium (test code = 9.0 mg/dL 8.6-10.4 calcium) CO2 (test code = CO2) 32.7 mmol/L 20.0-32.0 H anion gap (test code = anion 7 calc gap) [facility] 1996 [facility] - Serum or [id number] 12:41:00 Test Item Value Reference Range Interpretation Comments HDL (test code = HDL) 56 mg/dL triglyceride (test code = 111 mg/dL <150 triglyceride) VLDL (calculated) (test code = VLDL 22 mg/dL (calculated)) cholesterol/HDL ratio (test code = 3.6 mg/dL cholesterol/HDL ratio) non-HDL cholesterol (calculated) 145 mg/dL <160 (test code = non-HDL cholesterol (calculated)) cholesterol (test code = 201 mg/dL <200 H cholesterol) Cholesterol in LDL [Mass/volume] in 123 mg/dL <130 Serum or Plasma (test code = 2089-1) [facility] CenterThyrotropin [Units/volume] in Serum or [id number] 12:41:00 Test Item Value Reference Range Interpretation Comments TSH (test code = TSH) 1.385 uIU/mL 0.350-4.940 [facility] CenterMicroalbumin/Creatinine [Mass Ratio] in [id number] 11:53:00 Test Item Value Reference Range Interpretation Comments microalbumin random urine 6 ug/mL (test code = microalbumin random urine) creatinine random urine (test 151.6 mg/dL 20.0-320.0 code = creatinine random urine) microalbumin/creatinine 4 mcg/mg creat (random urine) ratio calculated (test code = microalbumin/creatinine (random urine) ratio calculated) [facility] Center[facility]/Creatinine [Mass Ratio] in [id number] 11:53:00 Test Item Value Reference Range Interpretation Comments microalbumin random urine 6 ug/mL (test code = microalbumin random urine) creatinine random urine (test 151.6 mg/dL 20.0-320.0 code = creatinine random urine) microalbumin/creatinine 4 mcg/mg creat (random urine) ratio calculated (test code = microalbumin/creatinine (random urine) ratio calculated) [facility] CenterHemoglobin A1c/Hemoglobin.total in [id number] 11:04:00 Test Item Value Reference Range Interpretation Comments Hemoglobin A1c/Hemoglobin.total in 9.0 % 1.0-5.7 H Blood (test code = 4548-4) average blood glucose (calculated) 212 mg/dL (test code = average blood glucose (calculated)) [facility] CenterHemoglobin A1c/Hemoglobin.total in [id number] 11:04:00 Test Item Value Reference Range Interpretation Comments Hemoglobin A1c/Hemoglobin.total in 9.0 % 1.0-5.7 H Blood (test code = 4548-4) average blood glucose (calculated) 212 mg/dL (test code = average blood glucose (calculated)) [facility]
[2023-06-26 19:24] LABS: Absolute Lymphocytes (CBC) 1.6 K/uL (0.7-4.9); Hematocrit 39.5 % (36.0-45.0); Lymphocytes % 17.8 % (15.3-44.8); MPV 9.3 fL (7.6-11.3); RBC Red Blood Cell Count 4.34 M/uL (3.86-4.86)
[2023-06-26] MEDS ORDERED: NA CHLORIDE 0.9% 500 ML ONE (19:37)
[2023-06-26] MEDS ORDERED: ONDANSETRON 4 MG/2 ML VIAL ONE (19:37)
[2023-06-26] MEDS ORDERED: CEFTRIAXONE 1000 MG/VIAL ONE (19:37)
[2023-06-26] MEDS ORDERED: KETOROLAC 30 MG/ML INJ ONE (19:37)
[2023-06-26 20:04] LABS: Albumin 3.8 g/dL (3.4-5.0); Bilirubin Total 0.4 mg/dL (0.2-1.0); Potassium 3.6 mEq/L (3.5-5.1); Protein, Total 7.3 g/dL (6.4-8.2); Troponin High Sensitivity 7.2 pg/mL (<58.9)
--- NOTE | 2023-06-26 20:10 | ER ---
Nurse's Notes [facility] Name: Harmony Rodriguez Age: 83 yrs Sex: Female : 1940 Arrival Date: 06/26/2023 Time: 17:34 Bed 20 Private MD: Diagnosis: Dental caries, unspecified-PAIN Presentation: 06/26 17:44 Chief complaint: Patient states: numbness and left jaw pain X3 days. Pt reports cm10 shortness of breath onset today. Pt states that she is also having left ear pain. Coronavirus screen: Vaccine status: Patient reports receiving the 2nd dose of the covid vaccine. Ebola Screen: Patient denies travel to an Ebola-affected area in the 21 days before illness onset. No symptoms or risks identified at this time. Initial Sepsis Screen: Does the patient meet any 2 criteria? No. Patient's initial sepsis screen is negative. Does the patient have a suspected source of infection? No. Patient's initial sepsis screen is negative. Risk Assessment: Do you want to hurt yourself or someone else? Patient reports no desire to harm self or others. Onset of symptoms was June 22, 2023. 17:44 Method Of Arrival: Wheelchair cm10 17:44 Acuity: NOEL 3 cm10 Historical: - Allergies: 17:47 Codeine; cm10 17:47 PENICILLINS; cm10 17:47 Talwin; cm10 - PMHx: 17:47 Diabetes - NIDDM; heart disease; Hypertension; cm10 - Immunization history:: Adult Immunizations. - Social history:: Smoking status: Patient denies any tobacco usage or history of. Screenin:57 [facility] ED Fall Risk Assessment (Adult) History of falling in the last 3 months, jb4 including since admission No falls in past 3 months (0 pts) Confusion or Disorientation No (0 pts) Score/Fall Risk Level 0 - 2 = Low Risk Oriented to surroundings, Maintained a safe environment. Abuse screen: Denies threats or abuse. Nutritional screening: No deficits noted. Tuberculosis screening: No symptoms or risk factors identified. Assessment: 19:00 General: Appears in no apparent distress. comfortable, Behavior is calm, cooperative, jb4 appropriate for age. Pain: Complains of pain in left cheek Pain radiates to left side of head Pain currently is 8 out of 10 on a pain scale. Neuro: Level of Consciousness is awake, alert, obeys commands, Oriented to person, place, time, situation. Cardiovascular: Patient's skin is warm and dry. Respiratory: Airway is patent Respiratory effort is even, unlabored, Respiratory pattern is regular, symmetrical. GI: No signs and/or symptoms were reported involving the gastrointestinal system. : No signs and/or symptoms were reported regarding the genitourinary system. EENT: No signs and/or symptoms were reported regarding the EENT system. Derm: Skin is intact, Skin is pink, warm \T\ dry. Musculoskeletal: Circulation, motion, and sensation intact. Range of motion: intact in all extremities. 19:52 Reassessment: Patient appears in no apparent distress at this time. Patient and/or jb4 family updated on plan of care and expected duration. Pain level reassessed. Patient is alert, oriented x 3, equal unlabored respirations, skin warm/dry/pink. 20:57 Reassessment: Patient appears in no apparent distress at this time. Patient and/or jb4 family updated on plan of care and expected duration. Pain level reassessed. Patient is alert, oriented x 3, equal unlabored respirations, skin warm/dry/pink. Patient states feeling better. Vital Signs: 17:44 BP 149 / 50; Pulse 73; Resp 18; Temp 97.3; Pulse Ox 100% on R/A; Weight 90.72 kg; cm10 Height 5 ft. 5 in. ; Pain 10/10; 19:30 BP 183 / 92; Pulse 63; Resp 16; Pulse Ox 99% ; jb4 20:57 BP 143 / 56; Pulse 72; Resp 16; Pulse Ox 98% on R/A; jb4 17:44 Body Mass Index 33.28 (90.72 kg, 165.1 cm) cm10 17:44 Pain Scale: Adult cm10 ED Course: 17:38 Patient arrived in ED. mg5 17:47 Triage completed. cm10 17:48 Arm band placed on Patient placed in waiting room. cm10 18:22 Bethel Chacon MD is Attending Physician. mamadou 18:49 Mery Ford, RN is Primary Nurse. db 19:11 Jerome Sam, RN is Primary Nurse. jb4 19:26 Inserted saline lock: 20 gauge in left antecubital area, using aseptic technique. Blood tm3 collected. 20:09 Jonatan Lind MD is Referral Physician. [facility] 20:57 Patient has correct armband on for positive identification. Bed in low position. Call jb4 light in reach. Side rails up X 1. 20:57 No provider procedures requiring assistance completed. IV discontinued, intact, jb4 bleeding controlled, No redness/swelling at site. Pressure dressing applied. Administered Medications: 19:38 Drug: NS 0.9% IV 500 ml Route: IV; Rate: bolus; Site: left antecubital; jb4 19:38 Drug: Rocephin IV 1 grams Route: IV; Rate: per protocol; Site: left antecubital; jb4 19:39 Drug: Ketorolac IVP 15 mg Route: IVP; Site: left antecubital; jb4 19:39 Drug: Ondansetron IVP 4 mg Route: IVP; Site: left antecubital; jb4 Medication: 20:57 VIS not applicable for this client. jb4 Outcome: 20:09 Discharge ordered by . [facility] 20:57 Discharged to home via wheelchair, with family. jb4 20:57 Condition: stable 20:57 Discharge instructions given to patient, Instructed on discharge instructions, follow up and referral plans. medication usage, Demonstrated understanding of instructions, follow-up care, medications, Prescriptions given X 2. 20:59 Patient left the ED. jb4 Signatures: Mahad Rebollar tm3 Bethel Chacon MD MD cha Bryson, James RN RN jb4 Mery Ford RN RN Francesca Newsome RN RN cm10 Belinda Hutson mg5 Corrections: (The following items were deleted from the chart) 19:55 19:30 BP 183 / 92; Pulse 63bpm; Resp 1bpm; Pulse Ox 99%; jb4 jb4
--- NOTE | 2023-06-26 20:10 | EDPHYS ---
Physician Documentation [facility] Name: Harmony Rodriguez Age: 83 yrs Sex: Female : 1940 Arrival Date: 06/26/2023 Time: 17:34 Bed 20 Private MD: ED Physician Bethel Chacon HPI: 06/26 19:04 This 83 yrs old Female presents to ER via Wheelchair with complaints of mamadou Numbness Of Face, Jaw Pain, Headache. 19:05 The patient presents with pain. The problem is located in the lower left third molar, mamadou lower left second molar and lower left first molar. Onset: The symptoms/episode began/occurred 3 day(s) ago. Duration: The symptoms are intermittent, with no pattern. Modifying factors: The symptoms are alleviated by nothing, the symptoms are aggravated by chewing. Associated signs and symptoms: The patient has no apparent associated signs or symptoms. Severity of symptoms: At their worst the symptoms were mild, in the emergency department the symptoms are unchanged. The patient has not experienced similar symptoms in the past. Historical: - Allergies: 17:47 Codeine; cm10 17:47 PENICILLINS; cm10 17:47 Talwin; cm10 - PMHx: 17:47 Diabetes - NIDDM; heart disease; Hypertension; cm10 - Immunization history:: Adult Immunizations. - Social history:: Smoking status: Patient denies any tobacco usage or history of. ROS: 19:05 Constitutional: Negative for fever, chills, and weight loss, Eyes: Negative for injury, mamadou pain, redness, and discharge, Neck: Negative for injury, pain, and swelling, Cardiovascular: Negative for chest pain, palpitations, and edema, Respiratory: Negative for shortness of breath, cough, wheezing, and pleuritic chest pain, Abdomen/GI: Negative for abdominal pain, nausea, vomiting, diarrhea, and constipation, Back: Negative for injury and pain, : Negative for injury, bleeding, discharge, and swelling, MS/Extremity: Negative for injury and deformity, Skin: Negative for injury, rash, and discoloration, Neuro: Negative for headache, weakness, numbness, tingling, and seizure. 19:05 ENT: Positive for Gum pain Exam: 19:05 Constitutional: This is a well developed, well nourished patient who is awake, alert, mamadou and in no acute distress. Eyes: Pupils equal round and reactive to light, extra-ocular motions intact. Lids and lashes normal. Conjunctiva and sclera are non-icteric and not injected. Cornea within normal limits. Periorbital areas with no swelling, redness, or edema. ENT: Nares patent. No nasal discharge, no septal abnormalities noted. Tympanic membranes are normal and external auditory canals are clear. Oropharynx with no redness, swelling, or masses, exudates, or evidence of obstruction, uvula midline. Mucous membranes moist. Neck: Trachea midline, no thyromegaly or masses palpated, and no cervical lymphadenopathy. Supple, full range of motion without nuchal rigidity, or vertebral point tenderness. No Meningismus. Chest/axilla: Normal chest wall appearance and motion. Nontender with no deformity. No lesions are appreciated. Cardiovascular: Regular rate and rhythm with a normal S1 and S2. No gallops, murmurs, or rubs. Normal PMI, no JVD. No pulse deficits. Respiratory: Lungs have equal breath sounds bilaterally, clear to auscultation and percussion. No rales, rhonchi or wheezes noted. No increased work of breathing, no retractions or nasal flaring. Abdomen/GI: Soft, non-tender, with normal bowel sounds. No distension or tympany. No guarding or rebound. No evidence of tenderness throughout. Back: No spinal tenderness. No costovertebral tenderness. Full range of motion. Female : Normal external genitalia. Skin: Warm, dry with normal turgor. Normal color with no rashes, no lesions, and no evidence of cellulitis. MS/ Extremity: Pulses equal, no cyanosis. Neurovascular intact. Full, normal range of motion. Neuro: Awake and alert, GCS 15, oriented to person, place, time, and situation. Cranial nerves II-XII grossly intact. Motor strength 5/5 in all extremities. Sensory grossly intact. Cerebellar exam normal. Normal gait. Psych: Awake, alert, with orientation to person, place and time. Behavior, mood, and affect are within normal limits. 19:05 Head/face: Noted is tenderness, that is mild, of the left jaw, left cheek and left mandible. 19:29 ECG was reviewed by the Attending Physician. [facility] Vital Signs: 17:44 BP 149 / 50; Pulse 73; Resp 18; Temp 97.3; Pulse Ox 100% on R/A; Weight 90.72 kg; cm10 Height 5 ft. 5 in. ; Pain 10/10; 19:30 BP 183 / 92; Pulse 63; Resp 16; Pulse Ox 99% ; jb4 20:57 BP 143 / 56; Pulse 72; Resp 16; Pulse Ox 98% on R/A; jb4 17:44 Body Mass Index 33.28 (90.72 kg, 165.1 cm) cm10 17:44 Pain Scale: Adult cm10 MDM: 18:22 Patient medically screened. [facility] 19:07 Differential diagnosis: dental caries, gingivitis, dental abscess, pericoronitis, mamadou aphthous ulcers, acute necrotizing ulcerative gingivitis, gingivostomatitis. Data reviewed: vital signs, nurses notes, lab test result(s), EKG. Consideration of Admission/Observation Escalation of care including admission/observation considered. I considered the following discharge prescriptions or medication management in the emergency department Medications were administered in the Emergency Department. See MAR. Independent interpretation of the following test(s) in the Emergency Department EKG: See my EKG interpretation above. Test considered but Not performed: CT: NO CT MAX FACE , NO TRISMUS. Care significantly affected by the following chronic conditions: Diabetes, Hypertension, Obesity, CAD. Counseling: I had a detailed discussion with the patient and/or guardian regarding: the historical points, exam findings, and any diagnostic results supporting the discharge/admit diagnosis, lab results, the need for outpatient follow up, for definitive care, a unified communications engineer, a dentist, a family practitioner. 06/26 18:47 Order name: CBC with Diff; Complete Time: 19:46 [facility] 06/26 18:47 Order name: Comprehensive Metabolic Panel; Complete Time: 20:09 [facility] 06/26 18:47 Order name: Troponin HS; Complete Time: 20:09 [facility] 06/26 18:47 Order name: EKG; Complete Time: 18:48 [facility] 06/26 18:47 Order name: EKG - Nurse/Tech; Complete Time: 19:26 [facility] EC:29 Rate is 62 beats/min. Rhythm is regular. QRS [place] is Normal. VA interval is normal. QRS mamadou interval is normal. QT interval is normal. No Q waves. T waves are Normal. No ST changes noted. Clinical impression: NSR w/ Non-specific ST/T Changes and No evidence of ischemia. Interpreted by me. Reviewed by me. Administered Medications: 19:38 Drug: NS 0.9% IV 500 ml Route: IV; Rate: bolus; Site: left antecubital; jb4 19:38 Drug: Rocephin IV 1 grams Route: IV; Rate: per protocol; Site: left antecubital; jb4 19:39 Drug: Ketorolac IVP 15 mg Route: IVP; Site: left antecubital; jb4 19:39 Drug: Ondansetron IVP 4 mg Route: IVP; Site: left antecubital; jb4 Disposition Summary: 06/26/23 20:09 Discharge Ordered Location: Home mamadou Problem: new mamadou Symptoms: have improved mamadou Condition: Stable mamadou Diagnosis - Dental caries, unspecified - PAIN mamadou Followup: mamadou - With: Private Physician - When: 2 - 3 days - Reason: Recheck today's complaints, Continuance of care, Re-evaluation by your physician Followup: mamadou - With: - When: 2 - 3 days - Reason: Recheck today's complaints, Re-evaluation by your physician Discharge Instructions: - Discharge Summary Sheet mamadou - Dental Caries, Adult mamadou - Dental Pain [facility] - Dental Pain, [id number] [facility] - Diet and Dental Disease [facility] Forms: - Medication Reconciliation Form [facility] - Thank You Letter [facility] - Antibiotic Education [facility] - Prescription Opioid Use [facility] - Patient Portal Instructions [facility] Prescriptions: - Cephalexin 500 mg Oral Capsule - take 1 capsule by ORAL route every 6 hours for 7 days; 28 capsule; Refills: 0, [facility] Product Selection Permitted - Tramadol 50 mg Oral Tablet - take 1 tablet by ORAL route every 8 hours as needed; 20 tablet; Refills: 0, [facility] Product Selection Permitted Signatures: Dispatcher [employer] Bethel Abdi MD MD cha Bryson, James, RN RN jb4 Francesca Michele RN RN cm10
[2023-06-26 21:14] VITALS: TEMP 97.3
[2023-06-26 21:25] VITALS: BP 143/56; O2SAT 98
--- NOTE | 2023-06-27 17:34 | EKG ---
Test Date: 2023-06-26 Test Time: 19:22:29 Drying Room Supervisor: NICK MEASUREMENT RESULTS: Intervals: Rate: 62 RI: 176 QRSD: 80 QT: 428 QTc: 434 [place]: P: 57 RI: 176 QRS: 7 T: 36 INTERPRETIVE STATEMENTS: Normal sinus rhythm Septal infarct, age undetermined Abnormal ECG Compared to ECG 05/31/2019 11:24:38 Atrial premature complex(es) no longer present Myocardial infarct finding still present Electronically Signed On 06-27-23 17:31:32 CDT by Jonatan Lind
== END 2023-06-26 20:59 | disposition home or self-care (01) ==
LOC: ER 17:34
DX: K02.9 Dental caries, unspecified (principal); Z88.0 Allergy status to penicillin; Z88.5 Allergy status to narcotic agent; Z88.8 Allergy status to other drugs, medicaments and biological substances
CPT/HCPCS: 93005; 85025; 36415; 84484; 80053; 96375; 96374; 99284; J2405; J7040; J0696

== ENCOUNTER 2024-05-29 05:19 | Emergency (ER) | payer MEDICAID ==
--- OUTSIDE RECORDS SUMMARY | 2024-05-29 05:31 | XMS REPORT | Continuity of Care Document ---
Author Name Unknown Address [address] [place] [address] [facility] Address [address] [place] [address] Care Team Providers Care Transportation Museum Helper Name Role Phone PCP, PATIENT DOES NOT HAVE A Primary Care Physic randall Unavailable BERTHA ALMARAZ Attending Clinician Unavailable ALAN THAO Attending Clinician Unavailable MATT TRUONG Attending Clinician Unavailable CODEY MCCANN Attending Clinician Unavailab DOMITILA Moreon Attending Clinician Unavailable DB KING Attending Clinician Unav ailable ANKITDAVID Attending Clinician Unav ailable LAB39 Attending Clinician Unavailable RADIOLOGY, DEPT Attending Clinician Unavailable JENNIFFER ARANGO Attending Clinician Unavaila ble LAB59 Attending Clinician Unavailable 39, HOLTER Attending Clinician Unavailable JEAN PIERRE GARCIA Attending Clinician Unavailabl e CONFERENCE, BDC Attending Clinician Unavailable MAC, EKG- Attending Clinician Unavailable JAMES GARBER Attending Clinician Unavailable EDUCATION, TOTAL JOINT Attending Clinician Unava ilable LAB90 Attending Clinician Unavailable RON HILL Attending Clinician Unavailable NAOMI FIGUEROA Attending Clinician Unava ilable NEHA JENKINS Attending Clinician Unavailable Shahid_S Attending Clinician Unavailable Nurse, [facility] Attending Clinician Un available Unknown, Attending Attending Clinician Unavailab DAREN Amezcua Attending Clinician Unavailable Mckayla_Alvino Attending Clinician Unavailable Shahid_S Admitting Clinician Unavailable Levins_J Admitting Clinician Unavailable Payers Payer Name Policy Type Policy Number Effective Date Expirati on Date Source [place] SIGNATURE O 7 [id number] 2023 00:00:00 [employer] TXP CLASSIC NO PREMIUM R2T [id number] 2023 00:00:00 PRETTY - WELLGEORGE (MEDICARE REPLACEMENT/ADVANT AGE - HMO) [id number] 2021 00:00:00 WELLC[employer] OF [place] (MEDICARE REPLACEMENT/ADVANT AGE - HMO) [id number] 2019 00:00:00 Problems Condition Name Condition Details Condition Category Status Onset Date Resolution Date Last Treatment Date Treating Clinician Comments Source Invasive lobular carcinoma of breast in female (multi HCC) Invasive lobular carcinoma of breast in female (multi HCC) Disease Active 02-06 00:00: 00 Patti Hare - Externa l Class 1 obesity due to excess calories with serious comorbidit y and body mass index (BMI) of 33.0 to 33.9 in adult Class 1 obesity due to excess calories with serious comorbidit y and body mass index (BMI) of 33.0 to 33.9 in adult Disease Active 02-06 00:00: 00 Patti Hare - Externa l DM type 2 with diabetic mixed hyperlipid emia (multi HCC) DM type 2 with diabetic mixed hyperlipid emia (multi HCC) Disease Active 2-20 00:00: 00 Patti Hare - Externa l Pain in lower jaw Pain in lower jaw Disease Active 8-03 00:00: 00 Patti Palmaold - Externa l Arthritis of left hip Arthritis of left hip Disease Active 530 00:00: 00 Patti Palmaold - Externa l Immunodefi ciency due to conditions classified elsewhere (multi HCC) Immunodefi ciency due to conditions classified elsewhere (multi HCC) Disease Active 4-10 00:00: 00 Patti Hare - Externa l Risk for falls Risk for falls Disease Active 02-22 00:00: 00 Patti Palmaold - Externa l Type 2 diabetes mellitus with hyperglyce juan, without long-term current use of insulin (multi HCC) Type 2 diabetes mellitus with hyperglyce juan, without long-term current use of insulin (multi HCC) Disease Active 02-22 00:00: 00 Patti Hare - Externa l Hypertensi on Hypertensi on Disease Active 02-22 00:00: 00 Patti Hare - Externa l Well adult exam Well adult exam Disease Active 02-22 00:00: 00 Patti Hare - Externa l Primary osteoarthr itis of both knees Primary osteoarthr itis of both knees Disease Active 02-22 00:00: 00 Patti Hare - Externa l Primary osteoarthr itis of both hips Primary osteoarthr itis of both hips Disease Active 02-22 00:00: 00 Patti Hare - Externa l Chronic bilateral low back pain without sciatica Chronic bilateral low back pain without sciatica Disease Active 02-22 00:00: 00 Patti Palmaold - Externa l Gastroesop hageal reflux disease without esophagiti s Gastroesop hageal reflux disease without esophagiti s Disease Active 02-22 00:00: 00 Patti Hare - Externa l Seasonal allergic rhinitis due to pollen Seasonal allergic rhinitis due to pollen Disease Active 02-22 00:00: 00 Patti Hare - Externa l Immunodefi ciency due to DM (multi HCC) Immunodefi ciency due to DM (multi HCC) Disease Active 02-22 00:00: 00 Patti Hare - Externa l 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 Problem Active 2021-11 2-13 00:00: 00 [facility] Spondyliti s Spondyliti s Problem Active 8-17 00:00: 00 [facility] Hyperlipid emia Hyperlipid emia Problem Active 4-10 00:00: 00 [facility] Coronary arterioscl erosis Coronary Arterioscl erosis Problem Active 2 00:00: 00 [facility] Nephrotic syndrome associated with another disorder Nephrotic Syndrome Associated with Another Disorder Problem Active 2 00:00: 00 [facility] Hypertensi ve renal disease Hypertensi ve Renal Disease Problem Active 2019-11 0- 00:00: 00 [facility] Disorder of nervous system due to type 2 diabetes mellitus Disorder of Nervous System Due to Type 2 Diabetes Mellitus Problem Active 2- 00:00: 00 [facility] Opioid dependence Opioid Dependence Problem Active 01-06 00:00: 00 [facility] Old myocardial infarction Old Myocardial Infarction Problem Active 01-06 00:00: 00 [facility] Atheroscle rosis of aorta Atheroscle rosis of Aorta Problem Active 01-06 00:00: 00 [facility] Allergic rhinitis Allergic Rhinitis Problem Active 01-06 00:00: 00 [facility] Asthma Asthma Problem Active 01-06 00:00: 00 [facility] Allergies, Adverse Reactions, Alerts Allergy Name Allergy Type Status Severity Reaction(s) Onset Date Inactive Date Treating Clinician Comments Source Metformi n Propensi ty to adverse reaction s Active 02-22 00:00: 00 Other reaction( s): Abdominal Pain Patti Hare - Externa l Penicill ins Propensi ty to adverse reaction s Active 02-21 00:00: 00 Patti Hare - Externa l Codeine Allergy to substanc e Active Nausea 05-24 00:00: 00 [facility] PENICILL INS Allergy to substanc e Active 05-24 00:00: 00 [facility] Codeine Propensi ty to adverse reaction s Active Nausea Only 01-06 00:00: 00 Patti Hare - Externa l Pentazoc ine Propensi ty to adverse reaction s Active Other 816 00:00: 00 Other reaction( s): Shortness of breath Patti Hare - Externa l NO KNOWN ALLERGIE S Drug Class Active [facility] Allergy to substanc e Active Moderate Other [facility] Metformi n Allergy to substanc e Active Abdominal pain [facility] Social History Social Habit Start Date Stop Date Quantity Comments Source Gender identity Ana Hare - External Sexual orientation Ce Hare - External Alcoholic beverage intake 2024-05-09 00:00:00 2024-05-09 00:00:00 Lifetime non-drinker (finding) Patti Hare - External Alcohol intake 2024-02-21 00:00:00 2024-02-21 00:00:00 Lifetime non-drinker (finding) Patti Hare - External History of Social function 2023-08-13 00:00:00 2023-08-13 00:00:00 Patti Hare - External Education 2023-02-22 00:00:00 2023-02-22 00:00:00 17 Patti Louiepiedad - External Tobacco use and exposure 2023-02-22 00:00:00 2023-02-22 00:00:00 Smokeless tobacco non-user Patti Ananya - Connor Sex assigned at 1940 00:00:00 1940 00:00:00 Patti Juarezvictorinopiedad - External Smoking Status Start Date Stop Date Source Never smoked tobacco Patti Sehema - External Medications Ordered Medication Name Filled Medication Name Start Date Stop Date Current Medication? Ordering Clinician Indication Dosage Frequency Signature (SIG) Comments Components Source Cholecalcif sam (D3 5000) 125 MCG (5000 UT) oral Capsule 05-09 10:56: 58 Yes 1{capsu le} Take 1 capsule by mouth daily Patti berrios Montelukast (SINGULAIR) 10 MG oral Tablet tablet 05-09 10:56: 58 Yes 10mg Take 1 tablet (10 mg total) by mouth daily. Patti berrios Misc Natural Products (NEURIVA OR) 05-09 10:56: 58 Yes 2{tbl} Take 2 tablets by mouth daily. Patti berrios Tamoxifen Citrate 20 MG oral Tablet 05-09 00:00: 00 Yes [id number] 20mg Take 1 tablet (20 mg total) by mouth daily. Patti berrios Famotidine (PEPCID) 20 MG oral tablet 05-01 00:00: 00 Yes [id number] 20mg QD Take 1 tablet (20 mg total) by mouth nightly as needed for heartburn. Patti berrios Tramadol HCl (ULTRAM) 50 MG oral Tablet 04-14 00:00: 00 Yes 50mg Q.25D Take 1 tablet (50 mg total) by mouth every 6 hours as needed. Patti berrios Diclofenac Sodium 1 % apply externally Gel 16 00:00: 00 Yes [id number] Q.5D Apply 1 applicatio n. topically 2 times daily as needed (pain). Patti berrios Tramadol HCl (ULTRAM) 50 MG oral Tablet 03-14 00:00: 00 Yes [id number] 50mg QD Take 1 tablet (50 mg total) by mouth daily as needed for pain. Patti berrios Amlodipine Besylate (NORVASC) 5 MG oral Tablet 03-03 00:00: 00 Yes [id number] 10mg Take 2 tablets (10 mg total) by mouth daily. Patti berrios Amlodipine Besylate (NORVASC) 5 MG oral Tablet 03-03 00:00: 00 Yes [id number] 10mg Take 2 tablets (10 mg total) by mouth daily. Patti berrios Tramadol HCl (ULTRAM) 50 MG oral Tablet 03-03 00:00: 00 03-14 00:00 :00 No [id number] 50mg QD Take 1 tablet (50 mg total) by mouth daily as needed for pain. Patti berrios Acetaminoph en 650 MG oral Tab CR 02-20 12:49: 36 Yes [id number] 1300mg Q.5D Take 2 tablets (1,300 mg total) by mouth 2 times daily as needed. Patti berrios Cholecalcif sam (D3 5000) 125 MCG (5000 UT) oral Capsule 02-20 12:49: 36 Yes 1{capsu le} Take 1 capsule by mouth daily Patti berrios Magnesium 400 MG oral Capsule 02-20 12:49: 36 Yes Take by mouth Patti berrios Montelukast (SINGULAIR) 10 MG oral Tablet tablet 02-20 12:49: 36 Yes 10mg Take 1 tablet (10 mg total) by mouth daily. Patti berrios IBUPROFEN OR 02-20 12:49: 36 Yes Take by mouth Patti berrios Glimepiride 2 MG oral Tablet 02-10 00:00: 00 Yes [id number] 3 2mg Take 1 tablet (2 mg total) by mouth every morning (before breakfast) . Patti berrios Acetaminoph en 650 MG oral Tab CR 02-06 10:10: 24 Yes [id number] 1300mg Q.5D Take 2 tablets (1,300 mg total) by mouth 2 times daily as needed. Patti berrios Cholecalcif sam (D3 5000) 125 MCG (5000 UT) oral Capsule 02-06 10:10: 24 Yes 1{capsu le} Take 1 capsule by mouth daily Patti berrios Magnesium 400 MG oral Capsule 02-06 10:10: 24 Yes Take by mouth Patti berrios Montelukast (SINGULAIR) 10 MG oral Tablet tablet 02-06 10:10: 24 Yes 10mg Take 1 tablet (10 mg total) by mouth daily. Patti berrios IBUPROFEN OR 02-06 10:10: 24 Yes Take by mouth Patti berrios Famotidine (PEPCID) 20 MG oral tablet 01-30 00:00: 00 Yes [id number] 20mg QD Take 1 tablet (20 mg total) by mouth nightly as needed for heartburn. Patti berrios Glimepiride 1 MG oral Tablet 01-30 00:00: 00 Yes [id number] 3 1mg Take 1 tablet (1 mg total) by mouth every morning (before breakfast) . Patti berrios Acetaminoph en 650 MG oral Tab CR 20 10:28: 57 Yes [id number] 1300mg Q.5D Take 2 tablets (1,300 mg total) by mouth 2 times daily as needed. Patti berrios Cholecalcif sam (D3 5000) 125 MCG (5000 UT) oral Capsule -20 10:28: 57 Yes 1{capsu le} Take 1 capsule by mouth daily Patti berrios Magnesium 400 MG oral Capsule 20 10:28: 57 Yes Take by mouth Patti berrios Montelukast (SINGULAIR) 10 MG oral Tablet tablet 01-15 10:28: 57 Yes 10mg Take 1 tablet (10 mg total) by mouth daily. Patti berrios IBUPROFEN OR 01-15 10:28: 57 Yes Take by mouth Patti berrios Benzonatate (Tessalon Perles) 100 MG oral Capsule 12-12 00:00: 00 01-15 00:00 :00 No [id number] 100mg [id number] 3D Take 1 capsule (100 mg total) by mouth 3 times daily as needed for cough. Patti berrios Cinnamon 500 MG oral Capsule 12-03 15:35: 55 12-03 00:00 :00 No 500mg Take 500 mg by mouth daily Patti berrios Acetaminoph en 650 MG oral Tab CR 12-03 15:21: 44 Yes [id number] 1300mg Q.5D Take 2 tablets (1,300 mg total) by mouth 2 times daily as needed. Patti berrios Cholecalcif sam (D3 5000) 125 MCG (5000 UT) oral Capsule 12-03 15:21: 44 Yes 1{capsu le} Take 1 capsule by mouth daily Patti berrios Magnesium 400 MG oral Capsule 12-03 15:21: 44 Yes Take by mouth Patti berrios Montelukast (SINGULAIR) 10 MG oral Tablet tablet 12-03 15:21: 44 Yes 10mg Take 1 tablet (10 mg total) by mouth daily. Patti berrios IBUPROFEN OR 12-03 15:21: 44 Yes Take by mouth Patti berrios Amlodipine Besylate (NORVASC) 5 MG oral Tablet 11-30 00:00: 00 Yes [id number] 10mg Take 2 tablets (10 mg total) by mouth daily. Patti berrios Continuous Blood Gluc Loom Setter ([employer] Buffy 2 [place]) does not apply Device 2022-11 00:00: 00 Yes [id number] 3 CHECK BLOOD SUGAR CONTINOUSL Y.. Patti berrios Pravastatin Sodium 40 MG oral Tablet 2022-11 00:00: 00 Yes 40mg Take 1 tablet (40 mg total) by mouth daily. Patti berrios Acetaminoph en 650 MG oral Tab CR 2022-11 14:07: 11 Yes [id number] 1300mg Q.5D Take 2 tablets (1,300 mg total) by mouth 2 times daily as needed. Patti berrios Cholecalcif sam (D3 5000) 125 MCG (5000 UT) oral Capsule 2022-11 14:07: 11 Yes 1{capsu le} Take 1 capsule by mouth daily Patti berrios Cinnamon 500 MG oral Capsule 2022-11 14:07: 11 Yes 500mg Take 500 mg by mouth daily Patti berrios Magnesium 400 MG oral Capsule 2022-11 14:07: 11 Yes Take by mouth Patti berrios Montelukast (SINGULAIR) 10 MG oral Tablet tablet 2022-11 14:07: 11 Yes 10mg Take 1 tablet (10 mg total) by mouth daily. Patti berrios IBUPROFEN OR 2022-11 14:07: 11 Yes Take by mouth Patti berrios Acetaminoph en 650 MG oral Tab CR 2022-11 15:52: 36 Yes [id number] 1300mg Q.5D Take 2 tablets (1,300 mg total) by mouth 2 times daily as needed. Patti berrios Cholecalcif sam (D3 5000) 125 MCG (5000 UT) oral Capsule 2022-11 15:52: 36 Yes 1{capsu le} Take 1 capsule by mouth daily Patti berrios Cinnamon 500 MG oral Capsule 2022-11 15:52: 36 Yes 500mg Take 500 mg by mouth daily Patti berrios Magnesium 400 MG oral Capsule 2022-11 15:52: 36 Yes Take by mouth Patti berrios Montelukast (SINGULAIR) 10 MG oral Tablet tablet 2022-11 15:52: 36 Yes 10mg Take 1 tablet (10 mg total) by mouth daily. Patti berrios IBUPROFEN OR 2022-11 15:52: 36 Yes Take by mouth Patti berrios Continuous Blood Gluc Loom Setter (FreeStyle Buffy 2 [place]) does not apply Device 2022-11 00:00: 00 Yes [id number] 3 Check BS continousl y. Patti berrios Metoprolol Tartrate (LOPRESSOR) 25 MG oral Tablet 2022-11 00:00: 00 Yes [id number] 25mg Take 1 tablet (25 mg total) by mouth daily. Patti berrios Continuous Blood Gluc Sensor (FreeStyle Buffy 2 Sensor) does not apply Misc 2022-11 00:00: 00 Yes [id number] 3 Check BS continuous ly. Patti berrios Metoprolol Tartrate (LOPRESSOR) 25 MG oral Tablet 2022-11 00:00: 00 Yes [id number] 25mg Take 1 tablet (25 mg total) by mouth daily. Patti berrios Pioglitazon e HCl 30 MG oral Tablet 2022-11 00:00: 00 Yes [id number] 3 30mg Take 1 tablet (30 mg total) by mouth daily. Patti berrios Diclofenac Sodium 1 % apply externally Gel 2022-11 00:00: 00 Yes [id number] Q.5D Apply 1 applicatio n. topically 2 times daily as needed (pain). Patti berrios Acetaminoph en 650 MG oral Tab CR 2022-11 15:02: 00 Yes [id number] 1300mg Q.5D Take 2 tablets (1,300 mg total) by mouth 2 times daily as needed. Patti berrios Cholecalcif sam (D3 5000) 125 MCG (5000 UT) oral Capsule 2022-11 15:02: 00 Yes 1{capsu le} Take 1 capsule by mouth daily Patti berrios Cinnamon 500 MG oral Capsule 2022-11 15:02: 00 Yes 500mg Take 500 mg by mouth daily Patti berrios Magnesium 400 MG oral Capsule 2022-11 15:02: 00 Yes Take by mouth Patti berrios Montelukast (SINGULAIR) 10 MG oral Tablet tablet 2022-11 15:02: 00 Yes 10mg Take 1 tablet (10 mg total) by mouth daily. Patti berrios IBUPROFEN OR 2022-11 15:02: 00 Yes Take by mouth Patti berrios Pioglitazon e HCl 30 MG oral Tablet 2022-11 00:00: 00 Yes [id number] 30mg Take 1 tablet (30 mg total) by mouth daily. Patti berrios Ketoconazol e 2 % apply externally Cream 2022-11 00:00: 00 Yes [id number] Apply to the affected skin twice daily. Patti berrios Tramadol HCl (ULTRAM) 50 MG oral Tablet 2022-11 00:00: 00 Yes [id number] 50mg QD Take 1 tablet (50 mg total) by mouth daily as needed for pain. Patti berrios Misc Natural Products (NEURIVA OR) 05-28 14:46: 39 03-14 00:00 :00 No 2{tbl} Take 2 tablets by mouth daily. Patti berrios Montelukast (SINGULAIR) 10 MG oral Tablet tablet 05-28 14:45: 58 Yes 10mg Take 1 tablet (10 mg total) by mouth daily Patti berrios Acetaminoph en 650 MG oral Tab CR 05-28 14:43: 19 Yes [id number] 1300mg Q.5D Take 2 tablets (1,300 mg total) by mouth 2 times daily as needed Patti berrios Cholecalcif sam (D3 5000) 125 MCG (5000 UT) oral Capsule 05-28 14:43: 19 Yes 1{capsu le} Take 1 capsule by mouth daily Patti berrios Cinnamon 500 MG oral Capsule 05-28 14:43: 19 Yes 500mg Take 500 mg by mouth daily Patti berrios Magnesium 400 MG oral Capsule 05-28 14:43: 19 Yes Take by mouth Patti berrios Famotidine (PEPCID) 20 MG oral tablet 05-22 15:29: 59 05-22 00:00 :00 No 20mg Take 1 tablet (20 mg total) by mouth 2 times daily Patti berrios Montelukast (SINGULAIR) 10 MG oral Tablet tablet 05-22 15:29: 17 05-22 00:00 :00 No [id number] 10mg Take 1 tablet (10 mg total) by mouth nightly Patti berrios Tizanidine HCl 4 MG oral Tablet 05-22 15:28: 56 05-22 00:00 :00 No 4mg Q.25D Take 1 tablet (4 mg total) by mouth every 6 hours as needed for muscle spasms Patti berrios Tramadol HCl (ULTRAM) 50 MG oral Tablet 05-22 15:28: 50 05-22 00:00 :00 No 50mg Q.25D Take 1 tablet (50 mg total) by mouth every 6 hours as needed for pain Patti berrios GlipiZIDE 5 MG oral TABLET SR 24 HR 05-22 15:21: 41 05-22 00:00 :00 No [id number] 5mg Take 1 tablet (5 mg total) by mouth daily Patti berrios Omeprazole 40 MG oral Delayed Release Capsule 05-22 00:00: 00 Yes [id number] 40mg Take 1 capsule (40 mg total) by mouth daily Patti berrios GlipiZIDE 10 MG oral TABLET SR 24 HR 05-22 00:00: 00 Yes [id number] 3 10mg Take 1 tablet (10 mg total) by mouth daily Patti berrios Amlodipine Besylate 10 MG oral Tablet 05-22 00:00: 00 Yes [id number] 10mg Take 1 tablet (10 mg total) by mouth daily Patti berrios Famotidine (PEPCID) 20 MG oral tablet 05-22 00:00: 00 Yes [id number] 20mg QD Take 1 tablet (20 mg total) by mouth nightly as needed for heartburn Patti berrios Omeprazole 40 MG oral Delayed Release Capsule 05-22 00:00: 00 Yes [id number] 40mg Take 1 capsule (40 mg total) by mouth daily Patti berrios Metoprolol Tartrate (LOPRESSOR) 25 MG oral Tablet 05-22 00:00: 00 10-31 00:00 :00 No [id number] 25mg Take 1 tablet (25 mg total) by mouth daily Patti berrios Cinnamon 500 MG oral Capsule 05-17 14:09: 22 Yes 500mg Take 500 mg by mouth daily Patti berrios Magnesium 400 MG oral Capsule 05-17 14:09: 22 Yes Take by mouth Patti berrios Pravastatin Sodium 40 MG oral Tablet 05-17 00:00: 00 Yes 40mg Take 1 tablet (40 mg total) by mouth daily Patti berrios Metoprolol Tartrate (LOPRESSOR) 25 MG oral Tablet 05-17 00:00: 00 05-22 00:00 :00 No [id number] 25mg Take 1 tablet (25 mg total) by mouth daily Patti berrios Pioglitazon e HCl 30 MG oral Tablet 05-03 00:00: 00 09-19 00:00 :00 No [id number] 30mg Take 1 tablet (30 mg total) by mouth daily Patti berrios Pioglitazon e HCl 15 MG oral Tablet 04-24 13:25: 51 04-24 00:00 :00 No [id number] 15mg Take 1 tablet (15 mg total) by mouth daily Patti berrios GlipiZIDE 5 MG oral TABLET SR 24 HR 04-24 13:20: 19 Yes [id number] 5mg Take 1 tablet (5 mg total) by mouth daily Patti berrios Montelukast (SINGULAIR) 10 MG oral Tablet tablet 04-24 13:20: 19 Yes [id number] 10mg Take 1 tablet (10 mg total) by mouth nightly Patti Spears Externa agustina Acetaminoph en 650 MG oral Tab CR 04-24 13:20: 19 Yes [id number] 1300mg Q.5D Take 2 tablets (1,300 mg total) by mouth 2 times daily as needed Patti Poseya agustina Tizanidine HCl 4 MG oral Tablet 04-24 13:20: 19 Yes 4mg Q.25D Take 1 tablet (4 mg total) by mouth every 6 hours as needed for muscle spasms Patti Spears Externa agustina Cholecalcif sam (D3 5000) 125 MCG (5000 UT) oral Capsule 04-24 13:20: 19 Yes 1{capsu le} Take 1 capsule by mouth daily Patti berrios Famotidine (PEPCID) 20 MG oral tablet 04-24 13:20: 19 Yes 20mg Take 1 tablet (20 mg total) by mouth 2 times daily Patti berrios Tramadol HCl (ULTRAM) 50 MG oral Tablet 04-24 13:20: 19 Yes 50mg Q.25D Take 1 tablet (50 mg total) by mouth every 6 hours as needed for pain Patti berrios Pioglitazon e HCl 30 MG oral Tablet 04-24 00:00: 00 Yes [id number] 30mg Take 1 tablet (30 mg total) by mouth daily Patti berrios Bilateral Injection: Methylpredn isolone Acetate (Depo-Medro l) 40 mg/ml, 80mg - Physician Administere d ([id number]) 04-19 15:45: 00 04-19 20:03 :00 No [id number] 80mg Patti berrios GlipiZIDE 5 MG oral TABLET SR 24 HR 04-19 10:09: 25 Yes [id number] 5mg Take 1 tablet (5 mg total) by mouth daily Patti berrios Montelukast (SINGULAIR) 10 MG oral Tablet tablet 04-19 10:09: 25 Yes [id number] 10mg Take 1 tablet (10 mg total) by mouth daily. Patti berrios Acetaminoph en 650 MG oral Tab CR 04-19 10:09: 25 Yes [id number] 1300mg Q.5D Take 2 tablets (1,300 mg total) by mouth 2 times daily as needed. Patti berrios Pioglitazon e HCl 15 MG oral Tablet 04-19 10:09: 25 Yes [id number] 15mg Take 1 tablet (15 mg total) by mouth daily Patti berrios Metoprolol Tartrate (LOPRESSOR) 25 MG oral Tablet 04-04 00:00: 00 Yes [id number] 25mg Take 1 tablet (25 mg total) by mouth daily Patti berrios hydroCHLORO thiazide 12.5 MG oral Tablet 04-04 00:00: 00 05-22 00:00 :00 No [id number] 12.5mg Take 1 tablet (12.5 mg total) by mouth daily Patti berrios Omeprazole 40 MG oral Delayed Release Capsule 04-04 00:00: 00 05-22 00:00 :00 No [id number] 40mg Take 1 capsule (40 mg total) by mouth daily Patti berrios Omeprazole 40 MG oral Delayed Release Capsule 02-22 10:34: 17 Yes [id number] 40mg Take 40 mg by mouth daily Patti berrios Montelukast (SINGULAIR) 10 MG oral Tablet tablet 02-22 10:34: 15 Yes [id number] 10mg Take 10 mg by mouth nightly Patti berrios Acetaminoph en 650 MG oral Tab CR 02-22 10:34: 12 Yes [id number] 1300mg Q.5D Take 1,300 mg by mouth 2 times daily as needed Patti berrios AMLODIPINE BESYLATE OR 02-22 10:16: 07 02-22 00:00 :00 No 5mg Take 5 mg by mouth 2 times daily Patti berrios Chlorphenir amine Maleate 4 MG oral Tablet 02-22 10:16: 07 02-22 00:00 :00 No 4mg Q.25D Take 4 mg by mouth every 6 hours as needed for allergies Patti berrios Diclofenac Sodium 1 % apply externally Gel 02-22 10:16: 07 02-22 00:00 :00 No Apply topically Patti berrios Famotidine (PEPCID) 20 MG oral tablet 02-22 10:13: 44 02-22 00:00 :00 No 20mg Take 20 mg by mouth every night at bedtime Patti berrios Ibuprofen (MOTRIN) 800 MG oral Tablet 02-22 10:12: 46 02-22 00:00 :00 No 800mg Q.25D Take 800 mg by mouth every 6 hours as needed Sisters medication Patti berrios Tizanidine HCl 4 MG oral Tablet 02-22 10:09: 04 02-22 00:00 :00 No 4mg Q.25D Take 4 mg by mouth every 6 hours as needed Patti berrios Tramadol HCl (ULTRAM) 50 MG oral Tablet 02-22 10:08: 41 02-22 00:00 :00 No 50mg Q.25D Take 50 mg by mouth every 6 hours as needed Patti berrios hydroCHLORO thiazide 12.5 MG oral Tablet 02-22 09:13: 00 Yes [id number] 12.5mg Take 12.5 mg by mouth daily Patti berrios Pioglitazon e HCl 15 MG oral Tablet 02-22 09:13: 00 Yes [id number] 15mg Take 15 mg by mouth daily Patti berrios GlipiZIDE 5 MG oral TABLET SR 24 HR 02-22 09:13: 00 Yes [id number] 5mg Take 5 mg by mouth daily Patti berrios Metoprolol Tartrate (LOPRESSOR) 25 MG oral Tablet 02-22 09:13: 00 Yes [id number] 25mg Take 25 mg by mouth daily Patti ebrrios Diclofenac Sodium 1 % apply externally Gel 02-22 00:00: 00 Yes [id number] Q.5D Apply 1 applicatio n. topically 2 times daily as needed (pain) Patti berrios Chlorphenir amine Maleate 4 MG oral Tablet 02-22 00:00: 00 05-22 00:00 :00 No [id number] 4mg QD Take 1 tablet (4 mg total) by mouth nightly as needed for allergies or rhinitis Patti berrios Amlodipine Besylate 10 MG oral Tablet 02-22 00:00: 00 05-22 00:00 :00 No [id number] 5mg Take 0.5 tablets (5 mg total) by mouth daily Patti berrios alpha lipoic acid 200 mg capsule Take 1 capsule every day by oral route. alpha lipoic acid 200 mg capsule Take 1 capsule every day by oral route. 02-22 00:00: 00 No 1capsul e(s) Q1D alpha lipoic acid 200 mg capsule Take 1 capsule every day by oral route. [facility] alpha lipoic acid 200 mg capsule Take 1 capsule every day by oral route. alpha lipoic acid 200 mg capsule Take 1 capsule every day by oral route. 02-22 00:00: 00 No 1capsul e(s) Q1D alpha lipoic acid 200 mg capsule Take 1 capsule every day by oral route. [facility] alpha lipoic acid 200 mg capsule Take 1 capsule every day by oral route. alpha lipoic acid 200 mg capsule Take 1 capsule every day by oral route. 02-22 00:00: 00 No 1capsul e(s) Q1D alpha lipoic acid 200 mg capsule Take 1 capsule every day by oral route. [facility] alpha lipoic acid 200 mg capsule Take 1 capsule every day by oral route. alpha lipoic acid 200 mg capsule Take 1 capsule every day by oral route. 2021-0 3-30 00:00: 00 No 1capsul e(s) Q1D alpha lipoic acid 200 mg capsule Take 1 capsule every day by oral route. [facility] OneTouch Ultra Test strips BID OneTouch Ultra Test strips BID 04-07 00:00: 00 No OneTouch Ultra Test strips BID [facility] OneTouch Ultra Test strips BID OneTouch Ultra Test strips BID 04-07 00:00: 00 No OneTouch Ultra Test strips BID [facility] OneTouch Ultra Test strips BID OneTouch Ultra Test strips BID 04-07 00:00: 00 No OneTouch Ultra Test strips BID [facility] OneTouch Ultra Test strips BID OneTouch Ultra Test strips BID 04-07 00:00: 00 No OneTouch Ultra Test strips BID [facility] albuterol sulfate HFA 90 mcg/actuati on aerosol inhaler INHALE 2 PUFFS BY MOUTH 3 TIMES A DAY NEEDED albuterol sulfate HFA 90 mcg/actuati on aerosol inhaler INHALE 2 PUFFS BY MOUTH 3 TIMES A DAY NEEDED No albuterol sulfate HFA 90 mcg/actuat ion aerosol inhaler INHALE 2 PUFFS BY MOUTH 3 TIMES A DAY NEEDED [facility] ipratropium 0.5 mg-albutero l 3 mg (2.5 mg base)/3 mL nebulizatio n soln INHALE 1 VIAL VIA NEBULIZER TWO TIMES DAILY ipratropium 0.5 mg-albutero l 3 mg (2.5 mg base)/3 mL nebulizatio n soln INHALE 1 VIAL VIA NEBULIZER TWO TIMES DAILY No ipratropiu m 0.5 mg-albuter ol 3 mg (2.5 mg base)/3 mL nebulizati on soln INHALE 1 VIAL VIA NEBULIZER TWO TIMES DAILY [facility] Klor-Con 10 mEq tablet,exte nded release TAKE 1 TABLET BY MOUTH EVERY DAY Klor-Con 10 mEq tablet,exte nded release TAKE 1 TABLET BY MOUTH EVERY DAY No Klor-Con 10 mEq tablet,ext ended release TAKE 1 TABLET BY MOUTH EVERY DAY [facility] pravastatin 80 mg tablet TAKE 1 TABLET BY MOUTH EVERY DAY pravastatin 80 mg tablet TAKE 1 TABLET BY MOUTH EVERY DAY No pravastati n 80 mg tablet TAKE 1 TABLET BY MOUTH EVERY DAY [facility] albuterol sulfate HFA 90 mcg/actuati on aerosol inhaler INHALE 2 PUFFS BY MOUTH 3 TIMES A DAY NEEDED albuterol sulfate HFA 90 mcg/actuati on aerosol inhaler INHALE 2 PUFFS BY MOUTH 3 TIMES A DAY NEEDED No albuterol sulfate HFA 90 mcg/actuat ion aerosol inhaler INHALE 2 PUFFS BY MOUTH 3 TIMES A DAY NEEDED [facility] ipratropium 0.5 mg-albutero l 3 mg (2.5 mg base)/3 mL nebulizatio n soln INHALE 1 VIAL VIA NEBULIZER TWO TIMES DAILY ipratropium 0.5 mg-albutero l 3 mg (2.5 mg base)/3 mL nebulizatio n soln INHALE 1 VIAL VIA NEBULIZER TWO TIMES DAILY No ipratropiu m 0.5 mg-albuter ol 3 mg (2.5 mg base)/3 mL nebulizati on soln INHALE 1 VIAL VIA NEBULIZER TWO TIMES DAILY [facility] Klor-Con 10 mEq tablet,exte nded release TAKE 1 TABLET BY MOUTH EVERY DAY Klor-Con 10 mEq tablet,exte nded release TAKE 1 TABLET BY MOUTH EVERY DAY No Klor-Con 10 mEq tablet,ext ended release TAKE 1 TABLET BY MOUTH EVERY DAY [facility] pravastatin 80 mg tablet TAKE 1 TABLET BY MOUTH EVERY DAY pravastatin 80 mg tablet TAKE 1 TABLET BY MOUTH EVERY DAY No pravastati n 80 mg tablet TAKE 1 TABLET BY MOUTH EVERY DAY [facility] tramadol 50 mg tablet Take 1 tablet every 6-8 hours by oral route as needed. tramadol 50 mg tablet Take 1 tablet every 6-8 hours by oral route as needed. No 1 Q7H tramadol 50 mg tablet Take 1 tablet every 6-8 hours by oral route as needed. [facility] albuterol sulfate HFA 90 mcg/actuati on aerosol inhaler INHALE 2 PUFFS BY MOUTH 3 TIMES A DAY NEEDED albuterol sulfate HFA 90 mcg/actuati on aerosol inhaler INHALE 2 PUFFS BY MOUTH 3 TIMES A DAY NEEDED No albuterol sulfate HFA 90 mcg/actuat ion aerosol inhaler INHALE 2 PUFFS BY MOUTH 3 TIMES A DAY NEEDED [facility] glipizide ER 5 mg tablet, extended release 24 hr Take 1 tablet every day by oral route before meals for 90 days. glipizide ER 5 mg tablet, extended release 24 hr Take 1 tablet every day by oral route before meals for 90 days. No 1 Q1D glipizide ER 5 mg tablet, extended release 24 hr Take 1 tablet every day by oral route before meals for 90 days. [facility] hydrochloro thiazide 12.5 mg tablet TAKE 1 TABLET BY MOUTH EVERY DAY hydrochloro thiazide 12.5 mg tablet TAKE 1 TABLET BY MOUTH EVERY DAY No hydrochlor othiazide 12.5 mg tablet TAKE 1 TABLET BY MOUTH EVERY DAY [facility] pioglitazon e 15 mg tablet Take 1 tablet every day by oral route for 90 days. pioglitazon e 15 mg tablet Take 1 tablet every day by oral route for 90 days. No 1 Q1D pioglitazo ne 15 mg tablet Take 1 tablet every day by oral route for 90 days. [facility] potassium chloride ER 10 mEq tablet,exte nded release Take 1 tablet every day by oral route for 90 days. potassium chloride ER 10 mEq tablet,exte nded release Take 1 tablet every day by oral route for 90 days. No 1 Q1D potassium chloride ER 10 mEq tablet,ext ended release Take 1 tablet every day by oral route for 90 days. [facility] pravastatin 80 mg tablet TAKE 1 TABLET BY MOUTH EVERY DAY pravastatin 80 mg tablet TAKE 1 TABLET BY MOUTH EVERY DAY No pravastati n 80 mg tablet TAKE 1 TABLET BY MOUTH EVERY DAY [facility] tramadol 50 mg tablet Take 1 tablet every 6-8 hours by oral route as needed. tramadol 50 mg tablet Take 1 tablet every 6-8 hours by oral route as needed. No 1 Q7H tramadol 50 mg tablet Take 1 tablet every 6-8 hours by oral route as needed. [facility] albuterol sulfate HFA 90 mcg/actuati on aerosol inhaler INHALE 2 PUFFS BY MOUTH 3 TIMES A DAY NEEDED albuterol sulfate HFA 90 mcg/actuati on aerosol inhaler INHALE 2 PUFFS BY MOUTH 3 TIMES A DAY NEEDED No albuterol sulfate HFA 90 mcg/actuat ion aerosol inhaler INHALE 2 PUFFS BY MOUTH 3 TIMES A DAY NEEDED [facility] amlodipine 5 mg tablet TAKE 2 TABLETS BY MOUTH EVERY DAY amlodipine 5 mg tablet TAKE 2 TABLETS BY MOUTH EVERY DAY No amlodipine 5 mg tablet TAKE 2 TABLETS BY MOUTH EVERY DAY [facility] Celebrex 200 mg capsule Take 1 capsule every day by oral route as needed. Celebrex 200 mg capsule Take 1 capsule every day by oral route as needed. No 1capsul e(s) Q1D Celebrex 200 mg capsule Take 1 capsule every day by oral route as needed. [facility] Chlor-Trime ton Allergy 12 hour 12 mg tablet,exte nded release Take 1 tablet every 12 hours by oral route. Chlor-Trime ton Allergy 12 hour 12 mg tablet,exte nded release Take 1 tablet every 12 hours by oral route. No 1 Q12H Chlor-Trim eton Allergy 12 hour 12 mg tablet,ext ended release Take 1 tablet every 12 hours by oral route. [facility] glipizide ER 5 mg tablet, extended release 24 hr Take 1 tablet every day by oral route before meals for 90 days. glipizide ER 5 mg tablet, extended release 24 hr Take 1 tablet every day by oral route before meals for 90 days. No 1 Q1D glipizide ER 5 mg tablet, extended release 24 hr Take 1 tablet every day by oral route before meals for 90 days. [facility] hydrochloro thiazide 12.5 mg tablet TAKE 1 TABLET BY MOUTH EVERY DAY hydrochloro thiazide 12.5 mg tablet TAKE 1 TABLET BY MOUTH EVERY DAY No hydrochlor othiazide 12.5 mg tablet TAKE 1 TABLET BY MOUTH EVERY DAY [facility] pioglitazon e 15 mg tablet Take 1 tablet every day by oral route for 90 days. pioglitazon e 15 mg tablet Take 1 tablet every day by oral route for 90 days. No 1 Q1D pioglitazo ne 15 mg tablet Take 1 tablet every day by oral route for 90 days. [facility] potassium chloride ER 10 mEq tablet,exte nded release Take 1 tablet every day by oral route for 90 days. potassium chloride ER 10 mEq tablet,exte nded release Take 1 tablet every day by oral route for 90 days. No 1 Q1D potassium chloride ER 10 mEq tablet,ext ended release Take 1 tablet every day by oral route for 90 days. [facility] pravastatin 80 mg tablet TAKE 1 TABLET BY MOUTH EVERY DAY pravastatin 80 mg tablet TAKE 1 TABLET BY MOUTH EVERY DAY No pravastati n 80 mg tablet TAKE 1 TABLET BY MOUTH EVERY DAY [facility] tizanidine 4 mg tablet TAKE 1 TABLET BY MOUTH EVERY DAY tizanidine 4 mg tablet TAKE 1 TABLET BY MOUTH EVERY DAY No tizanidine 4 mg tablet TAKE 1 TABLET BY MOUTH EVERY DAY [facility] tramadol 50 mg tablet Take 1 tablet every 6-8 hours by oral route as needed. tramadol 50 mg tablet Take 1 tablet every 6-8 hours by oral route as needed. No 1 Q7H tramadol 50 mg tablet Take 1 tablet every 6-8 hours by oral route as needed. [facility] Tylenol 8 Hour 650 mg tablet,exte nded release Take 2 tablets every 8 hours by oral route. Tylenol 8 Hour 650 mg tablet,exte nded release Take 2 tablets every 8 hours by oral route. No 2 Q8H Tylenol 8 Hour 650 mg tablet,ext ended release Take 2 tablets every 8 hours by oral route. [facility] Immunizations Ordered Immunization Name Filled Immunization Name Date Status Comments Source Influenza Virus Vaccine, Unspecified Formulation 2022-10-30 00:00:00 Completed Patti Seybold - External Influenza Virus Vaccine, Unspecified Formulation 2022-10-30 00:00:00 Completed Patti Seybold - External Influenza Virus Vaccine, Unspecified Formulation 2022-10-30 00:00:00 Completed Patti Seybold - External Influenza Virus Vaccine, Unspecified Formulation 2022-10-30 00:00:00 Completed Patti Seybold - External Influenza Virus Vaccine, Unspecified Formulation 2022-10-30 00:00:00 Completed Patti Seybold - External Influenza Virus Vaccine, Unspecified Formulation 2022-10-30 00:00:00 Completed Patti Seybold - External influenza, unspecified formulation influenza, unspecified formulation 2022-10-30 00:00:00 Completed [facility] influenza, unspecified formulation influenza, unspecified formulation 2022-10-30 00:00:00 Completed [facility] COVID-19, mRNA, LNP-S, PF, 50 mcg/0.5 mL dose (Moderna) COVID-19, mRNA, LNP-S, PF, 50 mcg/0.5 mL dose (Moderna) 2022-05-22 13:20:19 Completed [facility] COVID-19, mRNA, LNP-S, PF, 50 mcg/0.5 mL dose (Moderna) COVID-19, mRNA, LNP-S, PF, 50 mcg/0.5 mL dose (Moderna) 2022-05-22 13:20:19 Completed [facility] COVID-19, mRNA, LNP-S, PF, 50 mcg/0.5 mL dose (Moderna) COVID-19, mRNA, LNP-S, PF, 50 mcg/0.5 mL dose (Moderna) 2022-05-22 13:20:19 Completed [facility] COVID-19, mRNA, LNP-S, PF, 50 mcg/0.5 mL dose (Moderna) COVID-19, mRNA, LNP-S, PF, 50 mcg/0.5 mL dose (Moderna) 2022-05-22 13:20:19 Completed [facility] Covid-19 Vaccine Moderna (Spikevax), Mrna-lnp, Azar Protein, Pf 2021-09-24 00:00:[facility] Moderna (Spikevax), Mrna-lnp, Azar Protein, Pf 2021-09-24 00:00:[facility] Moderna (Spikevax), Mrna-lnp, Azar Protein, Pf 2021-09-24 00:00:00 Completed Patti ybold - External Covid-19 Vaccine (Pfizer), Mrna-lnp, Azar Protein, Pf, 30mcg/0.3ml,IM 2021-09-24 00:00:00 Completed Patti ybold - External Covid-19 Vaccine Moderna (Spikevax), Mrna-lnp, Azar Protein, Pf 2021-09-24 00:00:00 Completed Patti Seybold - External Covid-19 Vaccine (Pfizer), Mrna-lnp, Azar Protein, Pf, 30mcg/0.3ml,IM 2021-09-24 00:00:00 Completed Patti Seybold - External Covid-19 Vaccine Moderna (Spikevax), Mrna-lnp, Azar Protein, Pf 2021-09-24 00:00:00 Completed Patti Seybold - External Covid-19 Vaccine (Pfizer), Mrna-lnp, Azar Protein, Pf, 30mcg/0.3ml,IM 2021-09-24 00:00:00 Completed Patti [facility] External Covid-19 Vaccine Moderna (Spikevax), Mrna-lnp, Azar Protein, Pf 2021-09-24 00:00:00 [facility], mRNA, LNP-S, PF, 100 mcg/0.5 mL dose (Moderna) COVID-19, mRNA, LNP-S, PF, 100 mcg/0.5 mL dose (Moderna) 2021-09-24 00:00:00 Completed [facility] COVID-19, mRNA, LNP-S, PF, 100 mcg/0.5 mL dose (Moderna) COVID-19, mRNA, LNP-S, PF, 100 mcg/0.5 mL dose (Moderna) 2021-09-24 00:00:00 Completed [facility] COVID-19, mRNA, LNP-S, PF, 100 mcg/0.5 mL dose (Moderna) COVID-19, mRNA, LNP-S, PF, 100 mcg/0.5 mL dose (Moderna) 2021-09-24 00:00:00 Completed [facility] COVID-19, mRNA, LNP-S, PF, 100 mcg/0.5 mL dose (Moderna) COVID-19, mRNA, LNP-S, PF, 100 mcg/0.5 mL dose (Moderna) 2021-09-24 00:00:00 Completed [facility] Covid-19 Vaccine (Pfizer), Mrna-lnp, Azar Protein, Pf, 30mcg/0.3ml,IM 2021-02-09 00:00:00 Completed [facility] - External Covid-19 Vaccine (Pfizer), Mrna-lnp, Azar Protein, Pf, 30mcg/0.3ml,IM 2021-02-09 00:00:00 Completed Patti Seybold - External Covid-19 Vaccine (Pfizer), Mrna-lnp, Azar Protein, Pf, 30mcg/0.3ml,IM 2021-02-09 00:00:00 Completed Patti ybold - External Covid-19 Vaccine (UNSPECIFIED) 2021-01-24 00:00:00 Completed Patti Seybold - External Covid-19 Vaccine (UNSPECIFIED) 2021-01-24 00:00:00 Completed Patti Seybold - External Covid-19 Vaccine (UNSPECIFIED) 2021-01-24 00:00:00 Completed Patti Seybold - External Covid-19 Vaccine (UNSPECIFIED) 2021-01-24 00:00:00 Completed Patti Seybold - External Covid-19 Vaccine (UNSPECIFIED) 2021-01-24 00:00:00 Completed Patti Seybold - External Covid-19 Vaccine (UNSPECIFIED) 2021-01-24 00:00:00 Completed Patti Seybold - External COVID-19 (SARS-COV-2) vaccine, unspecified COVID-19 (SARS-COV-2) vaccine, unspecified 2021-01-24 00:00:00 Completed [facility] COVID-19 (SARS-COV-2) vaccine, unspecified COVID-19 (SARS-COV-2) vaccine, unspecified 2021-01-24 00:00:00 Completed [facility] COVID-19 (SARS-COV-2) vaccine, unspecified COVID-19 (SARS-COV-2) vaccine, unspecified 2021-01-24 00:00:00 Completed [facility] COVID-19 (SARS-COV-2) vaccine, unspecified COVID-19 (SARS-COV-2) vaccine, unspecified 2021-01-24 00:00:00 Completed [facility] Covid-19 Vaccine (Pfizer), Mrna-lnp, Azar Protein, Pf, 30mcg/0.3ml,IM 2021-01-19 00:00:00 Completed Patti Seybold - External Covid-19 Vaccine (Pfizer), Mrna-lnp, Azar Protein, Pf, 30mcg/0.3ml,IM 2021-01-19 00:00:00 Completed Patti Seybold - External Covid-19 Vaccine (Pfizer), Mrna-lnp, Azar Protein, Pf, 30mcg/0.3ml,IM 2021-01-19 00:00:00 Completed Patti Seybold - External Covid-19 Vaccine (UNSPECIFIED) 2020-12-27 00:00:00 Completed Patti Seybold - External Covid-19 Vaccine (UNSPECIFIED) 2020-12-27 00:00:00 Completed Patti Seybold - External Covid-19 Vaccine (UNSPECIFIED) 2020-12-27 00:00:00 Completed Patti Seybold - External Covid-19 Vaccine (UNSPECIFIED) 2020-12-27 00:00:00 Completed Patti Seybold - External Covid-19 Vaccine (UNSPECIFIED) 2020-12-27 00:00:00 Completed Patti Seybold - External Covid-19 Vaccine (UNSPECIFIED) 2020-12-27 00:00:00 Completed [facility] - External COVID-19 (SARS-COV-2) vaccine, unspecified COVID-19 (SARS-COV-2) vaccine, unspecified 2020-12-27 00:00:00 Completed [facility] COVID-19 (SARS-COV-2) vaccine, unspecified COVID-19 (SARS-COV-2) vaccine, unspecified 2020-12-27 00:00:00 Completed [facility] COVID-19 (SARS-COV-2) vaccine, unspecified COVID-19 (SARS-COV-2) vaccine, unspecified 2020-12-27 00:00:00 Completed [facility] COVID-19 (SARS-COV-2) vaccine, unspecified COVID-19 (SARS-COV-2) vaccine, unspecified 2020-12-27 00:00:00 Completed [facility] Influenza Virus Vaccine, Split, up to age 3 2020-11-26 00:00:00 Completed Patti Seybold - External Influenza Virus Vaccine, Split, up to age 3 2020-11-26 00:00:00 Completed Patti Seybold - External Influenza Virus Vaccine, Split, up to age 3 2020-11-26 00:00:00 Completed Patti Seybold - External Influenza Virus Vaccine, Split, up to age 3 2020-11-26 00:00:00 Completed Patti Seybold - External Influenza Virus Vaccine, Split, up to age 3 2020-11-26 00:00:00 Completed Patti Seybold - External Influenza Virus Vaccine, Split, up to age 3 2020-11-26 00:00:00 Completed Patti Seybold - External influenza, injectable, quadrivalent influenza, injectable, quadrivalent 2020-11-26 00:00:00 Completed [facility] influenza, injectable, quadrivalent influenza, injectable, quadrivalent 2020-11-26 00:00:00 Completed [facility] influenza, injectable, quadrivalent influenza, injectable, quadrivalent 2020-11-26 00:00:00 Completed [facility] influenza, injectable, quadrivalent influenza, injectable, quadrivalent 2020-11-26 00:00:00 Completed [facility] Influenza Virus Vaccine, Split, up to age 3 2020-08-26 00:00:00 Completed Patti Seybold - External Influenza Virus Vaccine, Split, up to age 3 2020-08-26 00:00:00 Completed Patti Seybold - External Influenza Virus Vaccine, Split, up to age 3 2020-08-26 00:00:00 Completed Patti Seybold - External Influenza Virus Vaccine, Split, up to age 3 2020-08-26 00:00:00 Completed Patti Seybold - External Influenza Virus Vaccine, Split, up to age 3 2020-08-26 00:00:00 Completed Patti Seybold - External Influenza Virus Vaccine, Split, up to age 3 2020-08-26 00:00:00 Completed Patti Seybold - External influenza, injectable, quadrivalent influenza, injectable, quadrivalent 2020-08-26 00:00:00 Completed [facility] influenza, injectable, quadrivalent influenza, injectable, quadrivalent 2020-08-26 00:00:00 Completed [facility] influenza, injectable, quadrivalent influenza, injectable, quadrivalent 2020-08-26 00:00:00 Completed [facility] influenza, injectable, quadrivalent influenza, injectable, quadrivalent 2020-08-26 00:00:00 Completed [facility] Seasonal Trivalent Influenza Vaccine, Adjuvanted, Preserve 2019-10-02 00:00:00 Completed Patti Seybold - External Seasonal Trivalent Influenza Vaccine, Adjuvanted, Preserve 2019-10-02 00:00:00 Completed Patti Seybold - External Seasonal Trivalent Influenza Vaccine, Adjuvanted, Preserve 2019-10-02 00:00:00 Completed Patti Seybold - External Seasonal Trivalent Influenza Vaccine, Adjuvanted, Preserve 2019-10-02 00:00:00 Completed Patti Seybold - External Seasonal Trivalent Influenza Vaccine, Adjuvanted, Preserve 2019-10-02 00:00:00 Completed Patti Seybold - External Seasonal Trivalent Influenza Vaccine, Adjuvanted, Preserve 2019-10-02 00:00:00 Completed Patti Seybold - External influenza, trivalent, adjuvanted influenza, trivalent, adjuvanted 2019-10-02 00:00:00 Completed [facility] influenza, trivalent, adjuvanted influenza, trivalent, adjuvanted 2019-10-02 00:00:00 Completed [facility] influenza, trivalent, adjuvanted influenza, trivalent, adjuvanted 2019-10-02 00:00:00 Completed [facility] influenza, trivalent, adjuvanted influenza, trivalent, adjuvanted 2019-10-02 00:00:00 Completed [facility] influenza, split (incl. purified surface antigen) 2016-11-10 00:00:00 Completed Patti Seybold - External influenza, split (incl. purified surface antigen) 2016-11-10 00:00:00 Completed Patti Seybold - External influenza, split (incl. purified surface antigen) 2016-11-10 00:00:00 Completed Patti Seybold - External influenza, split (incl. purified surface antigen) 2016-11-10 00:00:00 Completed Patti Seybold - External influenza, split (incl. purified surface antigen) 2016-11-10 00:00:00 Completed Patti Seybold - External influenza, split (incl. purified surface antigen) 2016-11-10 00:00:00 Completed Patti Seybold - External influenza, split (incl. purified surface antigen) influenza, split (incl. purified surface antigen) 2016-11-10 00:00:00 Completed [facility] influenza, split (incl. purified surface antigen) influenza, split (incl. purified surface antigen) 2016-11-10 00:00:00 Completed [facility] influenza, split (incl. purified surface antigen) influenza, split (incl. purified surface antigen) 2016-11-10 00:00:00 Completed [facility] influenza, split (incl. purified surface antigen) influenza, split (incl. purified surface antigen) 2016-11-10 00:00:00 Completed [facility] influenza, split (incl. purified surface antigen) 2015-12-07 00:00:00 Completed Patti Seybold - External influenza, split (incl. purified surface antigen) 2015-12-07 00:00:00 Completed Patti Seybold - External influenza, split (incl. purified surface antigen) 2015-12-07 00:00:00 Completed Patti Seybold - External influenza, split (incl. purified surface antigen) 2015-12-07 00:00:00 Completed Patti Seybold - External influenza, split (incl. purified surface antigen) 2015-12-07 00:00:00 Completed Patti Seybold - External influenza, split (incl. purified surface antigen) 2015-12-07 00:00:00 Completed Patti Seybold - External influenza, split (incl. purified surface antigen) influenza, split (incl. purified surface antigen) 2015-12-07 00:00:00 Completed [facility] influenza, split (incl. purified surface antigen) influenza, split (incl. purified surface antigen) 2015-12-07 00:00:00 Completed [facility] influenza, split (incl. purified surface antigen) influenza, split (incl. purified surface antigen) 2015-12-07 00:00:00 Completed [facility] influenza, split (incl. purified surface antigen) influenza, split (incl. purified surface antigen) 2015-12-07 00:00:00 Completed [facility] Influenza, Seasonal, Injectable 2014-10-06 00:00:00 Completed Patti Seybold - External Influenza, Seasonal, Injectable 2014-10-06 00:00:00 Completed Patti Seybold - External Influenza, Seasonal, Injectable 2014-10-06 00:00:00 Completed Patti Seybold - External Influenza, Seasonal, Injectable 2014-10-06 00:00:00 Completed Patti Seybold - External Influenza, Seasonal, Injectable 2014-10-06 00:00:00 Completed Patti Seybold - External Influenza, Seasonal, Injectable 2014-10-06 00:00:00 Completed Patti Seybold - External influenza, seasonal, injectable influenza, seasonal, injectable 2014-10-06 00:00:00 Completed [facility] influenza, seasonal, injectable influenza, seasonal, injectable 2014-10-06 00:00:00 Completed [facility] influenza, seasonal, injectable influenza, seasonal, injectable 2014-10-06 00:00:00 Completed [facility] influenza, seasonal, injectable influenza, seasonal, injectable 2014-10-06 00:00:00 Completed [facility] zoster, unspecified formulation 2013-12-11 00:00:00 Completed Patti Seybold - External zoster, unspecified formulation 2013-12-11 00:00:00 Completed Patti Seybold - External zoster, unspecified formulation 2013-12-11 00:00:00 Completed Patti Seybold - External zoster, unspecified formulation 2013-12-11 00:00:00 Completed Patti Seybold - External zoster, unspecified formulation 2013-12-11 00:00:00 Completed [facility]atti [facility] - External zoster, unspecified formulation 2013-12-11 00:00:00 Completed [facility] - External zoster, unspecified formulation zoster, unspecified formulation 2013-12-11 00:00:00 Completed [facility] zoster, unspecified formulation zoster, unspecified formulation 2013-12-11 00:00:00 Completed [facility] zoster, unspecified formulation zoster, unspecified formulation 2013-12-11 00:00:00 Completed [facility] zoster, unspecified formulation zoster, unspecified formulation 2013-12-11 00:00:00 Completed [facility] Influenza, Seasonal, Injectable 2013-10-10 00:00:00 Completed [facility] - External Influenza, Seasonal, Injectable 2013-10-10 00:00:00 Completed [facility] - External Influenza, Seasonal, Injectable 2013-10-10 00:00:00 Completed [facility] - External Influenza, Seasonal, Injectable 2013-10-10 00:00:00 Completed [facility] - External Influenza, Seasonal, Injectable 2013-10-10 00:00:00 Completed [facility] - External Influenza, Seasonal, Injectable 2013-10-10 00:00:00 Completed [facility] - External influenza, seasonal, injectable influenza, seasonal, injectable 2013-10-10 00:00:00 Completed [facility] influenza, seasonal, injectable influenza, seasonal, injectable 2013-10-10 00:00:00 Completed [facility] influenza, seasonal, injectable influenza, seasonal, injectable 2013-10-10 00:00:00 Completed [facility] influenza, seasonal, injectable influenza, seasonal, injectable 2013-10-10 00:00:00 Completed [facility] Pneumococcal Vaccine, Conjugate 13 2012-11-26 00:00:00 Completed [facility] - External Pneumococcal Vaccine, Conjugate 13 2012-11-26 00:00:00 Completed [facility] - External Pneumococcal Vaccine, Conjugate 13 2012-11-26 00:00:00 Completed [facility] - External Pneumococcal Vaccine, Conjugate 13 2012-11-26 00:00:00 Completed [facility] - External Pneumococcal Vaccine, Conjugate 13 2012-11-26 00:00:00 Completed [facility] - External Pneumococcal Vaccine, Conjugate 13 2012-11-26 00:00:00 Completed [facility] - External pneumococcal conjugate PCV 13 pneumococcal conjugate PCV 13 2012-11-26 00:00:00 Completed [facility] pneumococcal conjugate PCV 13 pneumococcal conjugate PCV 13 2012-11-26 00:00:00 Completed [facility] pneumococcal conjugate PCV 13 pneumococcal conjugate PCV 13 2012-11-26 00:00:00 Completed [facility] Influenza, Seasonal, Injectable 2012-11-05 00:00:00 Completed [facility] - External Influenza, Seasonal, Injectable 2012-11-05 00:00:00 Completed [facility] - External Influenza, Seasonal, Injectable 2012-11-05 00:00:00 Completed [facility] - External Influenza, Seasonal, Injectable 2012-11-05 00:00:00 Completed [facility] - External Influenza, Seasonal, Injectable 2012-11-05 00:00:00 Completed Pt[facility] - External Influenza, Seasonal, Injectable 2012-11-05 00:00:00 Completed [facility] - External influenza, seasonal, injectable influenza, seasonal, injectable 2012-11-05 00:00:00 Completed [facility] influenza, seasonal, injectable influenza, seasonal, injectable 2012-11-05 00:00:00 Completed [facility] influenza, seasonal, injectable influenza, seasonal, injectable 2012-11-05 00:00:00 Completed [facility] influenza, seasonal, injectable influenza, seasonal, injectable 2012-11-05 00:00:00 Completed [facility] Pneumococcal Vaccine, Polysaccharide 2012-02-05 00:00:00 Completed [facility] - External Pneumococcal Vaccine, Polysaccharide 2012-02-05 00:00:00 Completed [facility] - External Pneumococcal Vaccine, Polysaccharide 2012-02-05 00:00:00 Completed [facility] - External Pneumococcal Vaccine, Polysaccharide 2012-02-05 00:00:00 Completed [facility] - External Pneumococcal Vaccine, Polysaccharide 2012-02-05 00:00:00 Completed [facility] - External Pneumococcal Vaccine, Polysaccharide 2012-02-05 00:00:00 Completed [facility] - External pneumococcal polysaccharide PPV23 pneumococcal polysaccharide PPV23 2012-02-05 00:00:00 Completed [facility] pneumococcal polysaccharide PPV23 pneumococcal polysaccharide PPV23 2012-02-05 00:00:00 Completed [facility] pneumococcal polysaccharide PPV23 pneumococcal polysaccharide PPV23 2012-02-05 00:00:00 Completed [facility] pneumococcal polysaccharide PPV23 pneumococcal polysaccharide PPV23 2012-02-05 00:00:00 Completed [facility] Influenza, Seasonal, Injectable 2011-11-10 00:00:00 Completed [facility] - External Influenza, Seasonal, Injectable 2011-11-10 00:00:00 Completed [facility] - External Influenza, Seasonal, Injectable 2011-11-10 00:00:00 Completed [facility] - External Influenza, Seasonal, Injectable 2011-11-10 00:00:00 Completed [facility] - External Influenza, Seasonal, Injectable 2011-11-10 00:00:00 Completed [facility] - External Influenza, Seasonal, Injectable 2011-11-10 00:00:00 Completed [facility] - External influenza, seasonal, injectable influenza, seasonal, injectable 2011-11-10 00:00:00 Completed [facility] influenza, seasonal, injectable influenza, seasonal, injectable 2011-11-10 00:00:00 Completed [facility] influenza, seasonal, injectable influenza, seasonal, injectable 2011-11-10 00:00:00 Completed [facility] influenza, seasonal, injectable influenza, seasonal, injectable 2011-11-10 00:00:00 Completed [facility] Td (adult), 2 Lf tetanus toxoid, preservative free, adsorbed 2008-06-19 00:00:00 Completed [facility] - External Td (adult) 2008-06-19 00:00:00 Completed [facility] - External Td (adult), 2 Lf tetanus toxoid, preservative free, adsorbed 2008-06-19 00:00:00 Completed [facility] - External Td (adult) 2008-06-19 00:00:00 Completed [facility] - External Td (adult), 2 Lf tetanus toxoid, preservative free, adsorbed 2008-06-19 00:00:00 Completed [facility] - External Td (adult) 2008-06-19 00:00:00 Completed [facility] - External Td (adult), 2 Lf tetanus toxoid, preservative free, adsorbed 2008-06-19 00:00:00 Completed [facility] - External Td (adult) 2008-06-19 00:00:00 Completed [facility] - External Td (adult), 2 Lf tetanus toxoid, preservative free, adsorbed 2008-06-19 00:00:00 Completed [facility] - External Td (adult) 2008-06-19 00:00:00 Completed [facility] - External Td (adult), 2 Lf tetanus toxoid, preservative free, adsorbed 2008-06-19 00:00:00 Completed [facility] - External Td (adult) 2008-06-19 00:00:00 Completed [facility] - External Td (adult) Td (adult) 2008-06-19 00:00:00 Completed [facility] Td (adult), adsorbed Td (adult), adsorbed 06-19 00:00:00 Completed [facility] Td (adult) Td (adult) 2008-06-19 00:00:00 Completed [facility] Td (adult), adsorbed Td (adult), adsorbed 06-19 00:00:00 Completed [facility] Td (adult) Td (adult) 2008-06-19 00:00:00 Completed [facility] Td (adult), adsorbed Td (adult), adsorbed 06-19 00:00:00 Completed [facility] Td (adult) Td (adult) 2008-06-19 00:00:00 Completed [facility] Td (adult), adsorbed Td (adult), adsorbed 06-19 00:00:00 Completed [facility] Influenza, Seasonal, Injectable, Preservative Free 2006-11-28 00:00:00 Completed [facility] - External Influenza, Seasonal, Injectable, Preservative Free 2006-11-28 00:00:00 Completed [facility] - External Influenza, Seasonal, Injectable, Preservative Free 2006-11-28 00:00:00 Completed [facility] - External Influenza, Seasonal, Injectable, Preservative Free 2006-11-28 00:00:00 Completed [facility] - External Influenza, Seasonal, Injectable, Preservative Free 2006-11-28 00:00:00 Completed [facility] - External Influenza, Seasonal, Injectable, Preservative Free 2006-11-28 00:00:00 Completed [facility] - External influenza, seasonal, injectable, preservative free influenza, seasonal, injectable, preservative free 2006-11-28 00:00:00 Completed [facility] influenza, seasonal, injectable, preservative free influenza, seasonal, injectable, preservative free 2006-11-28 00:00:00 Completed [facility] influenza, seasonal, injectable, preservative free influenza, seasonal, injectable, preservative free 2006-11-28 00:00:00 Completed [facility] influenza, seasonal, injectable, preservative free influenza, seasonal, injectable, preservative free 2006-11-28 00:00:00 Completed [facility] Pneumococcal Vaccine, Polysaccharide 2005-08-02 00:00:[facility], Polysaccharide 2005-08-02 00:00:00 Completed [facility] - External Pneumococcal Vaccine, Polysaccharide 2005-08-02 00:00:00 [facility] Pneum[facility] Vaccine, Polysaccharide 2005-08-02 00:00:00 Completed [facility] - External Pneumococcal Vaccine, Polysaccharide 2005-08-02 00:00:00 [facility] Pneum[facility] Vaccine, Polysaccharide 2005-08-02 00:00:00 Completed [facility] - External pneumococcal polysaccharide PPV23 pneumococcal polysaccharide PPV23 2005-08-02 00:00:00 Completed [facility] pneumococcal polysaccharide PPV23 pneumococcal polysaccharide PPV23 2005-08-02 00:00:00 Completed [facility] pneumococcal polysaccharide PPV23 pneumococcal polysaccharide PPV23 2005-08-02 00:00:00 Completed [facility] pneumococcal polysaccharide PPV23 pneumococcal polysaccharide PPV23 2005-08-02 00:00:00 Completed [facility] Td (adult), 2 Lf tetanus toxoid, preservative free, adsorbed Unknown Completed [facility] - External Covid-19 Vaccine (UNSPECIFIED) Unknown Completed [facility] - External Covid-19 Vaccine (UNSPECIFIED) Unknown Completed [facility] - External Covid-19 Vaccine Moderna (Spikevax), Mrna-lnp, Azar Protein, Pf Unknown Completed [facility] - External Influenza Virus Vaccine, Split, up to age 3 Unknown Completed [facility] - External Influenza Virus Vaccine, Split, up to age 3 Unknown Completed [facility] External Influenza, Seasonal, Injectable, Preservative Free Unknown Completed [facility] Influ[facility], Seasonal, Injectable [facility], Seasonal, Injectable Unknown Completed [facility] - External Influenza, Seasonal, Injectable Unknown Completed [facility] - External Influenza, Seasonal, Injectable Unknown Completed [facility] - External influenza, split (incl. purified surface antigen) Unknown Completed [facility] - External influenza, split (incl. purified surface antigen) Unknown Completed [facility] - External zoster, unspecified formulation Unknown Completed [facility] - External Td (adult) Unknown Completed [facility] External Pneumococcal Vaccine, Polysaccharide Unknown Completed [facility] External Pneumococcal Vaccine, Polysaccharide Unknown Completed [facility] External Pneumococcal Vaccine, Conjugate 13 Unknown Completed [facility] External Influenza Virus Vaccine, Unspecified Formulation Unknown Completed [facility] Seasonal Trivalent Influenza Vaccine, Adjuvanted, Preserve Unknown Completed [facility] - External Covid-19 Vaccine (5 examples), Mrna-lnp, Azar Protein, Pf, 30mcg/0.3ml,IM Unknown Completed [facility] - External Covid-19 Vaccine (5 examples), Mrna-lnp, Azar Protein, Pf, 30mcg/0.3ml,IM Unknown Completed [facility] - External Covid-19 Vaccine (5 examples), Mrna-lnp, Azar Protein, Pf, 30mcg/0.3ml,IM Unknown Completed [facility] External Influenza vaccine, quadrivalent, adjuvanted, 65+ Unknown Completed [facility] - External Td (adult), 2 Lf tetanus toxoid, preservative free, adsorbed Unknown Completed [facility] - External Covid-19 Vaccine (UNSPECIFIED) Unknown Completed [facility] - External Covid-19 Vaccine (UNSPECIFIED) Unknown Completed [facility] - External Covid-19 Vaccine Moderna (Spikevax), Mrna-lnp, Azar Protein, Pf Unknown Completed [facility] - External Influenza Virus Vaccine, Split, up to age 3 Unknown Completed [facility] - External Influenza Virus Vaccine, Split, up to age 3 Unknown Completed [facility] - External Influenza, Seasonal, Injectable, Preservative Free Unknown Completed [facility] - External Influenza, Seasonal, Injectable Unknown Completed [facility] - External Influenza, Seasonal, Injectable Unknown Completed [facility] - External Influenza, Seasonal, Injectable Unknown Completed [facility] - External Influenza, Seasonal, Injectable Unknown Completed [facility] - External influenza, split (incl. purified surface antigen) Unknown Completed [facility] - External influenza, split (incl. purified surface antigen) Unknown Completed [facility] - External zoster, unspecified formulation Unknown Completed [facility] - External Td (adult) Unknown Completed [facility] - External Pneumococcal Vaccine, Polysaccharide Unknown Completed [facility] External Pneumococcal Vaccine, Polysaccharide Unknown Completed [facility] External Pneumococcal Vaccine, Conjugate 13 Unknown Completed [facility] External Influenza Virus Vaccine, Unspecified Formulation Unknown Completed [facility] Seasonal Trivalent Influenza Vaccine, Adjuvanted, Preserve Unknown Completed [facility] - External Covid-19 Vaccine (5 examples), Mrna-lnp, Azar Protein, Pf, 30mcg/0.3ml,IM Unknown Completed [facility] - External Covid-19 Vaccine (Pfizer), Mrna-lnp, Azar Protein, Pf, 30mcg/0.3ml,IM Unknown Completed [facility] External Covid-19 Vaccine (5 examples), Mrna-lnp, Azar Protein, Pf, 30mcg/0.3ml,IM Unknown Completed [facility] Td (adult), 2 Lf tetanus toxoid, preservative free, adsorbed Unknown Completed [facility] - External Covid-19 Vaccine (UNSPECIFIED) Unknown Completed [facility] - External Covid-19 Vaccine (UNSPECIFIED) Unknown Completed [facility] - External Covid-19 Vaccine Moderna (Spikevax), Mrna-lnp, Azar Protein, Pf Unknown Completed [facility] External Influenza Virus Vaccine, Split, up to age 3 Unknown Completed [facility] - External Influenza Virus Vaccine, Split, up to age 3 Unknown Completed [facility] - External Influenza, Seasonal, Injectable, Preservative Free Unknown Completed [facility] External Influenza, Seasonal, Injectable Unknown Completed [facility] External Influenza, Seasonal, Injectable [facility], Seasonal, Injectable Unknown Completed [facility] - External Influenza, Seasonal, Injectable Unknown Completed [facility] - External influenza, split (incl. purified surface antigen) Unknown Completed [facility] - External influenza, split (incl. purified surface antigen) Unknown Completed [facility] - External zoster, unspecified formulation Unknown Completed [facility] - External Td (adult) Unknown Completed [facility] - External Pneumococcal Vaccine, Polysaccharide Unknown Completed [facility] - External Pneumococcal Vaccine, Polysaccharide Unknown Completed [facility] - External Pneumococcal Vaccine, Conjugate 13 Unknown Completed [facility] - External Influenza Virus Vaccine, Unspecified Formulation Unknown Completed [facility] Seasonal Trivalent Influenza Vaccine, Adjuvanted, Preserve Unknown Completed [facility] - External Covid-19 Vaccine (5 examples), Mrna-lnp, Azar Protein, Pf, 30mcg/0.3ml,IM Unknown Completed [facility] - External Covid-19 Vaccine (5 examples), Mrna-lnp, Azar Protein, Pf, 30mcg/0.3ml,IM Unknown Completed [facility] - External Covid-19 Vaccine (5 examples), Mrna-lnp, Azar Protein, Pf, 30mcg/0.3ml,IM Unknown Completed [facility] Td (adult), 2 Lf tetanus toxoid, preservative free, adsorbed Unknown Completed [facility] - External Covid-19 Vaccine (UNSPECIFIED) Unknown Completed [facility] - External Covid-19 Vaccine (UNSPECIFIED) Unknown Completed [facility] - External Covid-19 Vaccine Moderna (Spikevax), Mrna-lnp, Azar Protein, Pf Unknown Completed [facility] - External Influenza Virus Vaccine, Split, up to age 3 Unknown Completed [facility] - External Influenza Virus Vaccine, Split, up to age 3 Unknown Completed [facility] - External Influenza, Seasonal, Injectable, Preservative Free Unknown Completed [facility] - External Influenza, Seasonal, Injectable Unknown Completed [facility] - External Influenza, Seasonal, Injectable Unknown Completed [facility] - External Influenza, Seasonal, Injectable [facility] Influ[facility], Seasonal, Injectable Unknown Completed [facility] - External influenza, split (incl. purified surface antigen) Unknown Completed [facility] - External influenza, split (incl. purified surface antigen) Unknown Completed [facility] - External zoster, unspecified formulation Unknown Completed [facility] - External Td (adult) Unknown Completed [facility] - External Pneumococcal Vaccine, Polysaccharide Unknown Completed [facility] - External Pneumococcal Vaccine, Polysaccharide Unknown Completed [facility] - External Pneumococcal Vaccine, Conjugate 13 Unknown Completed [facility] - External Influenza Virus Vaccine, Unspecified Formulation Unknown Completed [facility] Seasonal Trivalent Influenza Vaccine, Adjuvanted, Preserve Unknown Completed [facility] - External Covid-19 Vaccine (5 examples), Mrna-lnp, Azar Protein, Pf, 30mcg/0.3ml,IM Unknown Completed [facility] - External Covid-19 Vaccine (5 examples), Mrna-lnp, Azar Protein, Pf, 30mcg/0.3ml,IM Unknown Completed [facility] External Covid-19 Vaccine (5 examples), Mrna-lnp, Azar Protein, Pf, 30mcg/0.3ml,IM Unknown Completed [facility] - External Influenza vaccine, quadrivalent, adjuvanted, 65+ Unknown Completed [facility] - External Td (adult), 2 Lf tetanus toxoid, preservative free, adsorbed Unknown Completed [facility] - External Covid-19 Vaccine (UNSPECIFIED) Unknown Completed [facility] - External Covid-19 Vaccine (UNSPECIFIED) Unknown Completed [facility] - External Covid-19 Vaccine Moderna (Spikevax), Mrna-lnp, Azar Protein, Pf Unknown Completed [facility] - External Influenza Virus Vaccine, Split, up to age 3 Unknown Completed [facility] - External Influenza Virus Vaccine, Split, up to age 3 Unknown Completed [facility] - External Influenza, Seasonal, Injectable, Preservative Free Unknown Completed [facility] - External Influenza, Seasonal, Injectable Unknown Completed [facility] - External Influenza, Seasonal, Injectable Unknown Completed [facility] - External Influenza, Seasonal, Injectable Unknown Completed [facility] - External Influenza, Seasonal, Injectable Unknown Completed [facility] - External influenza, split (incl. purified surface antigen) Unknown Completed [facility] - External influenza, split (incl. purified surface antigen) Unknown Completed [facility] - External zoster, unspecified formulation Unknown Completed [facility] - External Td (adult) Unknown Completed [facility] - External Pneumococcal Vaccine, Polysaccharide Unknown Completed [facility] - External Pneumococcal Vaccine, Polysaccharide Unknown Completed [facility] - External Pneumococcal Vaccine, Conjugate 13 Unknown Completed [facility] - External Influenza Virus Vaccine, Unspecified Formulation Unknown Completed [facility] External Seasonal Trivalent Influenza Vaccine, Adjuvanted, Preserve Unknown Completed [facility] - External Covid-19 Vaccine (5 examples), Mrna-lnp, Azar Protein, Pf, 30mcg/0.3ml,IM Unknown Completed [facility] - External Covid-19 Vaccine (5 examples), Mrna-lnp, Azar Protein, Pf, 30mcg/0.3ml,IM Unknown Completed [facility] External Covid-19 Vaccine (5 examples), Mrna-lnp, Azar Protein, Pf, 30mcg/0.3ml,IM Unknown Completed [facility] External Influenza vaccine, quadrivalent, adjuvanted, 65+ Unknown Completed [facility] - External Td (adult), 2 Lf tetanus toxoid, preservative free, adsorbed Unknown Completed [facility] - External Covid-19 Vaccine (UNSPECIFIED) Unknown Completed [facility] - External Covid-19 Vaccine (UNSPECIFIED) Unknown Completed [facility] External Covid-19 Vaccine Moderna (Spikevax), Mrna-lnp, Azar Protein, Pf Unknown Completed [facility] - External Influenza Virus Vaccine, Split, up to age 3 Unknown Completed [facility] - External Influenza Virus Vaccine, Split, up to age 3 Unknown Completed [facility] - External Influenza, Seasonal, Injectable, Preservative Free Unknown Completed [facility] - External Influenza, Seasonal, Injectable Unknown Completed [facility] - External Influenza, Seasonal, Injectable Unknown Completed [facility] - External Influenza, Seasonal, Injectable Unknown Completed [facility] - External Influenza, Seasonal, Injectable Unknown Completed [facility] - External influenza, split (incl. purified surface antigen) Unknown Completed [facility] - External influenza, split (incl. purified surface antigen) Unknown Completed [facility] - External zoster, unspecified formulation Unknown Completed [facility] - External Td (adult) Unknown Completed [facility] - External Pneumococcal Vaccine, Polysaccharide Unknown Completed [facility] - External Pneumococcal Vaccine, Polysaccharide Unknown Completed [facility] External Pneumococcal Vaccine, Conjugate 13 Unknown Completed [facility] - External Influenza Virus Vaccine, Unspecified Formulation Unknown Completed [facility] Seasonal Trivalent Influenza Vaccine, Adjuvanted, Preserve Unknown Completed [facility] - External Covid-19 Vaccine (5 examples), Mrna-lnp, Azar Protein, Pf, 30mcg/0.3ml,IM Unknown Completed [facility] - External Covid-19 Vaccine (5 examples), Mrna-lnp, Azar Protein, Pf, 30mcg/0.3ml,IM Unknown Completed [facility] - External Covid-19 Vaccine (5 examples), Mrna-lnp, Azar Protein, Pf, 30mcg/0.3ml,IM Unknown Completed [facility] External Influenza vaccine, quadrivalent, adjuvanted, 65+ Unknown Completed [facility] - External Td (adult), 2 Lf tetanus toxoid, preservative free, adsorbed Unknown Completed [facility] - External Covid-19 Vaccine (UNSPECIFIED) Unknown Completed [facility] - External Covid-19 Vaccine (UNSPECIFIED) Unknown Completed [facility] - External Covid-19 Vaccine Moderna (Spikevax), Mrna-lnp, Azar Protein, Pf Unknown Completed [facility] External Influenza Virus Vaccine, Split, up to age 3 Unknown Completed [facility] - External Influenza Virus Vaccine, Split, up to age 3 Unknown Completed [facility] - External Influenza, Seasonal, Injectable, Preservative Free Unknown Completed [facility] - External Influenza, Seasonal, Injectable Unknown Completed [facility] - External Influenza, Seasonal, Injectable Unknown Completed [facility] - External Influenza, Seasonal, Injectable Unknown Completed [facility] - External Influenza, Seasonal, Injectable Unknown Completed [facility] - External influenza, split (incl. purified surface antigen) Unknown [facility], split (incl. purified surface antigen) Unknown Completed [facility] - External zoster, unspecified formulation Unknown [facility] Td (adult) Unknown Completed [facility] - External Pneumococcal Vaccine, Polysaccharide Unknown Completed [facility] - External Pneumococcal Vaccine, Polysaccharide Unknown Completed [facility] - External Pneumococcal Vaccine, Conjugate 13 Unknown Completed [facility] - External Influenza Virus Vaccine, Unspecified Formulation Unknown Completed [facility] - External Seasonal Trivalent Influenza Vaccine, Adjuvanted, Preserve Unknown Completed [facility] - External Covid-19 Vaccine (5 examples), Mrna-lnp, Azar Protein, Pf, 30mcg/0.3ml,IM Unknown [facility] Vaccine (5 examples), Mrna-lnp, Azar Protein, Pf, 30mcg/0.3ml,IM Unknown Completed [facility] - External Covid-19 Vaccine (5 examples), Mrna-lnp, Azar Protein, Pf, 30mcg/0.3ml,IM Unknown Completed [facility] - External Influenza vaccine, quadrivalent, adjuvanted, 65+ Unknown Completed [facility] - External Td (adult), 2 Lf tetanus toxoid, preservative free, adsorbed Unknown Completed [facility] - External Covid-19 Vaccine (UNSPECIFIED) Unknown Completed [facility] - External Covid-19 Vaccine (UNSPECIFIED) Unknown Completed [facility] - External Covid-19 Vaccine Moderna (Spikevax), Mrna-lnp, Azar Protein, Pf Unknown Completed [facility] - External Influenza Virus Vaccine, Split, up to age 3 Unknown Completed [facility] - External Influenza Virus Vaccine, Split, up to age 3 Unknown Completed [facility] - External Influenza, Seasonal, Injectable, Preservative Free Unknown Completed [facility] External Influenza, Seasonal, Injectable [facility], [facility], [facility]ject[facility] Influ[facility], Seasonal, Injectable Unknown [facility] External Influenza, Seasonal, Injectable Unknown Com[facility] - External influenza, split (incl. purified surface antigen) Unknown Com[facility] - External influenza, split (incl. purified surface antigen) Unknown Completed [facility] - External zoster, unspecified formulation Unknown Com[facility] External Td (adult) Unknown Completed [facility] - External Pneumococcal Vaccine, Polysaccharide Unknown Com[facility] - External Pneumococcal Vaccine, Polysaccharide Unknown Completed [facility] - External Pneumococcal Vaccine, Conjugate 13 Unknown Completed [facility] - External Influenza Virus Vaccine, Unspecified Formulation Unknown Completed [facility] External Seasonal Trivalent Influenza Vaccine, Adjuvanted, Preserve Unknown [facility] Covid-19 Vaccine (5 examples), Mrna-lnp, Azar Protein, Pf, 30mcg/0.3ml,IM Unknown Completed [facility] - External Covid-19 Vaccine (5 examples), Mrna-lnp, Azar Protein, Pf, 30mcg/0.3ml,IM Unknown [facility] Covid-[facility] Vaccine (5 examples), Mrna-lnp, Azar Protein, Pf, 30mcg/0.3ml,IM Unknown Completed [facility] - External Influenza vaccine, quadrivalent, adjuvanted, 65+ Unknown Completed [facility] - External Td (adult), 2 Lf tetanus toxoid, preservative free, adsorbed Unknown Completed [facility] - External Covid-19 Vaccine (UNSPECIFIED) Unknown Completed [facility] - External Covid-19 Vaccine (UNSPECIFIED) Unknown Completed [facility] - External Covid-19 Vaccine Moderna (Spikevax), Mrna-lnp, Azar Protein, Pf Unknown Completed [facility] - External Influenza Virus Vaccine, Split, up to age 3 Unknown Completed [facility] - External Influenza Virus Vaccine, Split, up to age 3 Unknown Completed [facility] - External Influenza, Seasonal, Injectable, Preservative Free Unknown Completed [facility] - External Influenza, Seasonal, Injectable Unknown Completed [facility] - External Influenza, Seasonal, Injectable Unknown Completed [facility] - External Influenza, Seasonal, Injectable Unknown [facility] Influenza, Seasonal, Injectable Unknown Com[facility] - External influenza, split (incl. purified surface antigen) Unknown Com[facility] - External influenza, split (incl. purified surface antigen) Unknown Completed [facility] - External zoster, unspecified formulation Unknown Completed [facility] - External Td (adult) Unknown Com[facility] - External Pneumococcal Vaccine, Polysaccharide Unknown Com[facility] - External Pneumococcal Vaccine, Polysaccharide Unknown Completed [facility] - External Pneumococcal Vaccine, Conjugate 13 Unknown Completed [facility] - External Influenza Virus Vaccine, Unspecified Formulation Unknown Completed [facility] - External Seasonal Trivalent Influenza Vaccine, Adjuvanted, Preserve Unknown Completed [facility] - External Covid-19 Vaccine (5 examples), Mrna-lnp, Azar Protein, Pf, 30mcg/0.3ml,IM Unknown Completed [facility] - External Covid-19 Vaccine (5 examples), Mrna-lnp, Azar Protein, Pf, 30mcg/0.3ml,IM Unknown [facility] - [facility] Cov[facility] Vaccine (5 examples), Mrna-lnp, Azar Protein, Pf, 30mcg/0.3ml,IM Unknown Com[facility] - External Influenza vaccine, quadrivalent, adjuvanted, 65+ Unknown Completed [facility] - External Td (adult), 2 Lf tetanus toxoid, preservative free, adsorbed Unknown Completed [facility] - External Covid-19 Vaccine (UNSPECIFIED) Unknown [facility] Cov[facility] Vaccine (UNSPECIFIED) Unknown Completed [facility] - External Covid-19 Vaccine Moderna (Spikevax), Mrna-lnp, Azar Protein, Pf Unknown Completed [facility] - External Influenza Virus Vaccine, Split, up to age 3 Unknown Completed [facility] - External Influenza Virus Vaccine, Split, up to age 3 Unknown Com[facility] - External Influenza, Seasonal, Injectable, Preservative Free Unknown Com[facility] - External Influenza, Seasonal, Injectable Unknown Completed [facility] - External Influenza, Seasonal, Injectable Unknown Completed [facility] - External Influenza, Seasonal, Injectable Unknown Completed [facility] - External Influenza, Seasonal, Injectable Unknown Completed [facility] - External influenza, split (incl. purified surface antigen) Unknown [facility] influenza, split (incl. purified surface antigen) Unknown [facility] zoster, unspecified formulation Unknown Completed [facility] - External Td (adult) Unknown [facility] External Pneumococcal Vaccine, Polysaccharide Unknown Completed [facility] - External Pneumococcal Vaccine, Polysaccharide Unknown Com[facility] - External Pneumococcal Vaccine, Conjugate 13 Unknown Completed [facility] - External Influenza Virus Vaccine, Unspecified Formulation Unknown Completed [facility] - External Seasonal Trivalent Influenza Vaccine, Adjuvanted, Preserve Unknown Completed [facility] - External Covid-19 Vaccine (5 examples), Mrna-lnp, Azar Protein, Pf, 30mcg/0.3ml,IM Unknown Completed [facility] - External Covid-19 Vaccine (Pfizer), Mrna-lnp, Azar Protein, Pf, 30mcg/0.3ml,IM Unknown Completed [facility] - External Covid-19 Vaccine (Pfizer), Mrna-lnp, Azar Protein, Pf, 30mcg/0.3ml,IM Unknown Com[facility] - External Influenza vaccine, quadrivalent, adjuvanted, 65+ Unknown Com[facility] - External Td (adult), 2 Lf tetanus toxoid, preservative free, adsorbed Unknown Completed [facility] - External Covid-19 Vaccine (UNSPECIFIED) Unknown [facility] External Covid-[facility] Vaccine (UNSPECIFIED) Unknown Com[facility] External Covid-19 Vaccine Moderna (Spikevax), Mrna-lnp, Azar Protein, Pf Unknown Com[facility] - External Influenza Virus Vaccine, Split, up to age 3 Unknown Com[facility] - External Influenza Virus Vaccine, Split, up to age 3 Unknown Completed [facility] - External Influenza, Seasonal, Injectable, Preservative Free Unknown Completed [facility] - External Influenza, Seasonal, Injectable Unknown Completed [facility] - External Influenza, Seasonal, Injectable Unknown Completed [facility] - External Influenza, Seasonal, Injectable Unknown Completed [facility] - External Influenza, Seasonal, Injectable Unknown Completed [facility] - External influenza, split (incl. purified surface antigen) Unknown Completed [facility] - External influenza, split (incl. purified surface antigen) Unknown Completed [facility] - External zoster, unspecified formulation Unknown Completed [facility] - External Td (adult) Unknown Completed [facility] - External Pneumococcal Vaccine, Polysaccharide Unknown Completed [facility] - External Pneumococcal Vaccine, Polysaccharide Unknown Completed [facility] - External Pneumococcal Vaccine, Conjugate 13 Unknown Completed [facility] - External Influenza Virus Vaccine, Unspecified Formulation Unknown Completed Patti Hare - External Seasonal Trivalent Influenza Vaccine, Adjuvanted, Preserve Unknown Completed [facility] - External Covid-19 Vaccine (5 examples), Mrna-lnp, Azar Protein, Pf, 30mcg/0.3ml,IM Unknown Completed [facility]arezy[facility] - External Covid-19 Vaccine (Pfizer), Mrna-lnp, Azar Protein, Pf, 30mcg/0.3ml,IM Unknown Completed [facility] - External Covid-19 Vaccine (Pfizer), Mrna-lnp, Azar Protein, Pf, 30mcg/0.3ml,IM Unknown Completed [facility] - External Influenza vaccine, quadrivalent, adjuvanted, 65+ Unknown Completed [facility] - External Vital Signs Vital Name Observation Time Observation Value Comments S ource Systolic blood pressure 2024-05-09 15:54:00 155 mm[Hg] Patti Palmao [facility] - External Diastolic blood pressure 2024-05-09 15:54:00 73 mm[Hg] Patti Palmao [facility] - External Heart rate 2024-05-09 15:54:00 67 /min Raven H[facility] - External Body temperature 2024-05-09 15:54:00 36.61 Rachel Patti [facility] - External Respiratory rate 2024-05-09 15:54:00 18 /min Patit [facility] - External Body height 2024-05-09 15:54:00 165.1 cm Ana bullock [facility] - External Body weight 2024-05-09 15:54:00 91.173 kg Ana bullock [facility] - External BMI 2024-05-09 15:54:00 33.45 kg/m2 Ana bullock [facility] - External Oxygen saturation in Arterial blood by Pulse oximetry 2024-05-09 15:54:00 98 /min Patti Giron [facility] - External Diastolic blood pressure 2024-03-20 19:09:00 56 mm[Hg] 2nd attempt Patti Palmao ld - External Systolic blood pressure 2024-03-20 19:09:00 149 mm[Hg] 2nd attempt Patti Palmao ld - External Heart rate 2024-03-20 19:04:00 66 /min Kelse y [facility] - External Body temperature 2024-03-20 19:04:00 36.78 Rachel Patti [facility] - External Respiratory rate 2024-03-20 19:04:00 16 /min Patti [facility] - External Body height 2024-03-20 19:04:00 165.1 cm Ana ey [facility] - External Body weight 2024-03-20 19:04:00 91.173 kg Ana ey [facility] - External BMI 2024-03-20 19:04:00 33.45 kg/m2 Ana ey [facility] - External Systolic blood pressure 2024-03-14 15:48:00 138 mm[Hg] Patti Seybo ld - External Diastolic blood pressure 2024-03-14 15:48:00 60 mm[Hg] Patti Seybo ld - External Heart rate 2024-03-14 15:30:00 76 /min Kelse y [facility] - External Body temperature 2024-03-14 15:30:00 36.61 Rachel Patti [facility] - External Respiratory rate 2024-03-14 15:30:00 22 /min Patti Seybold - External Body height 2024-03-14 15:30:00 165.1 cm Ana ey Seybold - External Body weight 2024-03-14 15:30:00 91.173 kg Ana ey Seybold - External BMI 2024-03-14 15:30:00 33.45 kg/m2 Ana ey Seybold - External Oxygen saturation in Arterial blood by Pulse oximetry 2024-03-14 15:30:00 95 /min Patti Sey bold - External Systolic blood pressure 2024-02-07 15:42:00 138 mm[Hg] Patti Seybo ld - External Diastolic blood pressure 2024-02-07 15:42:00 70 mm[Hg] Patti Seybo ld - External Heart rate 2024-02-07 15:08:00 75 /min Kelse y [facility] - External Body temperature 2024-02-07 15:08:00 36.5 Rachel Patti [facility] - External Respiratory rate 2024-02-07 15:08:00 20 /min Patti Sey[facility] - External Body height 2024-02-07 15:08:00 165.1 cm Ana ey Seybold - External Body weight 2024-02-07 15:08:00 89.359 kg Ana ey Seybold - External BMI 2024-02-07 15:08:00 32.78 kg/m2 Ana ey Seybold - External Oxygen saturation in Arterial blood by Pulse oximetry 2024-02-07 15:08:00 97 /min Patti Juarezy bold - External Systolic blood pressure 2024-01-15 16:46:00 140 mm[Hg] Patti Seybo ld - External Diastolic blood pressure 2024-01-15 16:46:00 66 mm[Hg] Patti Seybo ld - External Heart rate 2024-01-15 16:27:00 78 /min Kelse y [facility] - External Body temperature 2024-01-15 16:27:00 36.89 Rachel Patti [facility] - External Respiratory rate 2024-01-15 16:27:00 22 /min Patti Sey[facility] - External Body height 2024-01-15 16:27:00 165.1 cm Ana ey Seybold - External Body weight 2024-01-15 16:27:00 94.348 kg Ana ey Seybold - External BMI 2024-01-15 16:27:00 34.61 kg/m2 Ana ey Seybold - External Oxygen saturation in Arterial blood by Pulse oximetry 2024-01-15 16:27:00 97 /min Patti Juarezy bold - External Systolic blood pressure 2023-12-03 21:18:00 153 mm[Hg] Patti Seybo ld - External Diastolic blood pressure 2023-12-03 21:18:00 71 mm[Hg] Patti Seybo ld - External Heart rate 2023-12-03 21:18:00 83 /min Kelse y Seybold - External Body temperature 2023-12-03 21:18:00 36.61 Rachel Patti Seybold - External Respiratory rate 2023-12-03 21:18:00 20 /min Patti Seybold - External Body height 2023-12-03 21:18:00 165.1 cm Ana ey Seybold - External Body weight 2023-12-03 21:18:00 94.348 kg Aan ey Seybold - External BMI 2023-12-03 21:18:00 34.61 kg/m2 Ana ey Seybold - External Oxygen saturation in Arterial blood by Pulse oximetry 2023-12-03 21:18:00 98 /min Patti Giron bold - External Systolic blood pressure 2023-10-31 22:08:00 140 mm[Hg] Patti Seybo ld - External Diastolic blood pressure 2023-10-31 22:08:00 60 mm[Hg] Patti Seybo ld - External Heart rate 2023-10-31 21:52:00 79 /min Darwinse y Seybold - External Body temperature 2023-10-31 21:52:00 36.78 Rachel Patti Seybold - External Respiratory rate 2023-10-31 21:52:00 20 /min Patti Seybold - External Body height 2023-10-31 21:52:00 165.1 cm Ana ey Seybold - External Body weight 2023-10-31 21:52:00 94.802 kg Ana ey Seybold - External BMI 2023-10-31 21:52:00 34.78 kg/m2 Ana ey Seybold - External Oxygen saturation in Arterial blood by Pulse oximetry 2023-10-31 21:52:00 99 /min Patti Giron bold - External Systolic blood pressure 2023-09-19 20:00:00 167 mm[Hg] Patti Seybo ld - External Diastolic blood pressure 2023-09-19 20:00:00 67 mm[Hg] Patti Seybo ld - External Heart rate 2023-09-19 20:00:00 70 /min Darwinse y Seybold - External Body temperature 2023-09-19 20:00:00 36.94 Rachel Patti Seybold - External Respiratory rate 2023-09-19 20:00:00 15 /min Patti Seybold - External Body height 2023-09-19 20:00:00 165.1 cm Ana ey Seybold - External Body weight 2023-09-19 20:00:00 92.987 kg Ana ey Seybold - External BMI 2023-09-19 20:00:00 34.11 kg/m2 Ana ey Seybold - External Oxygen saturation in Arterial blood by Pulse oximetry 2023-09-19 20:00:00 99 /min Patti Juarezy bold - External Systolic blood pressure 2023-06-28 19:27:00 138 mm[Hg] Patti Seybo ld - External Diastolic blood pressure 2023-06-28 19:27:00 64 mm[Hg] Patti Seybo ld - External Heart rate 2023-06-28 19:27:00 88 /min Kelse y Sey[facility] - External Body temperature 2023-06-28 19:27:00 36.61 Rachel Patti Sey[facility] - External Respiratory rate 2023-06-28 19:27:00 14 /min Patti Seybold - External Body height 2023-06-28 19:27:00 165.1 cm Ana ey Seybold - External Body weight 2023-06-28 19:27:00 92.987 kg Ana ey Seybold - External BMI 2023-06-28 19:27:00 34.11 kg/m2 Ana ey Seybold - External Oxygen saturation in Arterial blood by Pulse oximetry 2023-06-28 19:27:00 99 /min Patti Girno bold - External Body height 2023-05-28 19:41:00 165.1 cm Ana ey Seybold - External Body weight 2023-05-28 19:41:00 92.987 kg Ana ey Seybold - External BMI 2023-05-28 19:41:00 34.11 kg/m2 Ana ey Seybold - External Systolic blood pressure 2023-05-22 20:11:00 142 mm[Hg] Patti Seybo ld - External Diastolic blood pressure 2023-05-22 20:11:00 83 mm[Hg] Patti Seybo ld - External Heart rate 2023-05-22 20:11:00 98 /min Kelse y Seybold - External Body temperature 2023-05-22 20:11:00 37.06 Rachel Patti Sey[facility] - External Respiratory rate 2023-05-22 20:11:00 14 /min Patti Seybold - External Body height 2023-05-22 20:11:00 165.1 cm Ana ey Seybold - External Body weight 2023-05-22 20:11:00 91.627 kg Ana ey Seybold - External BMI 2023-05-22 20:11:00 33.61 kg/m2 Ana ey Seybold - External Oxygen saturation in Arterial blood by Pulse oximetry 2023-05-22 20:11:00 99 /min Patti Giron bold - External Systolic blood pressure 2023-04-24 18:13:00 124 mm[Hg] Patti Seybo ld - External Diastolic blood pressure 2023-04-24 18:13:00 64 mm[Hg] Patti Seybo ld - External Heart rate 2023-04-24 18:13:00 74 /min Darwinse y Sey[facility] - External Body temperature 2023-04-24 18:13:00 36.44 Rachel Patti Sey[facility] - External Respiratory rate 2023-04-24 18:13:00 20 /min Patti Seybold - External Body height 2023-04-24 18:13:00 165.1 cm Ana ey Seybold - External Body weight 2023-04-24 18:13:00 91.808 kg Ana ey Seybold - External BMI 2023-04-24 18:13:00 33.68 kg/m2 Ana ey Seybold - External Oxygen saturation in Arterial blood by Pulse oximetry 2023-04-24 18:13:00 97 /min Patti Giron bold - External Body height 2023-04-19 15:06:00 162.6 cm Ana ey Seybold - External Body weight 2023-04-19 15:06:00 91.264 kg Ana ey Seybold - External BMI 2023-04-19 15:06:00 34.54 kg/m2 Ana ey Seybold - External Systolic blood pressure 2023-02-22 14:11:00 143 mm[Hg] Patti Seybo ld - External Diastolic blood pressure 2023-02-22 14:11:00 68 mm[Hg] Patti Seybo ld - External Heart rate 2023-02-22 14:11:00 83 /min Kelse y Seybold - External Body temperature 2023-02-22 14:11:00 36.56 Rachel Patti Seybold - External Respiratory rate 2023-02-22 14:11:00 16 /min Patti Seybold - External Body height 2023-02-22 14:11:00 162.6 cm Ana ey Seybold - External Body weight 2023-02-22 14:11:00 92.08 kg Ana ey Seybold - External BMI 2023-02-22 14:11:00 34.84 kg/m2 Ana ey Seybold - External Oxygen saturation in Arterial blood by Pulse oximetry 2023-02-22 14:11:00 100 /min Patticamille Giron bold - External Systolic blood pressure 2023-01-28 18:45:00 151 mm[Hg] [facility] Diastolic blood pressure 2023-01-28 18:45:00 73 mm[Hg] [facility] Heart rate 2023-01-28 18:44:00 72 /min [facility] Body temperature 2023-01-28 18:44:00 36.83 Rachel [facility] Respiratory rate 2023-01-28 18:44:00 16 /min [facility] Body weight 2023-01-28 18:44:00 90.719 kg [facility] Oxygen saturation in Arterial blood by Pulse oximetry 2023-01-28 18:44:00 97 /min [facility] BP Diastolic 2022-11-30 00:00:00 78 mm[Hg] [facility] Height 2022-11-30 00:00:00 63 [in_i] [facility] BMI (Body Mass Index) 2022-11-30 00:00:00 36.5 kg/m2 [facility] BP Systolic 2022-11-30 00:00:00 142 mm[Hg] [facility] Body Weight 2022-11-30 00:00:00 206 [lb_av] [facility] BP Diastolic 2022-11-02 00:00:00 58 mm[Hg] [facility] Height 2022-11-02 00:00:00 63 [in_i] [facility] BMI (Body Mass Index) 2022-11-02 00:00:00 36.8 kg/m2 [facility] BP Systolic 2022-11-02 00:00:00 126 mm[Hg] [facility] Body Weight 2022-11-02 00:00:00 208 [lb_av] [facility] BP Diastolic 2022-10-23 00:00:00 64 mm[Hg] [facility] Height 2022-10-23 00:00:00 63 [in_i] [facility] BMI (Body Mass Index) 2022-10-23 00:00:00 36.8 kg/m2 [facility] BP Systolic 2022-10-23 00:00:00 118 mm[Hg] [facility] Body Weight 2022-10-23 00:00:00 208 [lb_av] [facility] Height 2022-06-14 00:00:00 63 [in_i] [facility] BMI (Body Mass Index) 2022-06-14 00:00:00 36 kg/m2 [facility] Body Weight 2022-06-14 00:00:00 203 [lb_av] [facility] BP Diastolic 2022-03-07 00:00:00 66 mm[Hg] [facility] Height 2022-03-07 00:00:00 63 [in_i] [facility] BMI (Body Mass Index) 2022-03-07 00:00:00 36.2 kg/m2 [facility] BP Systolic 2022-03-07 00:00:00 124 mm[Hg] [facility] Body Weight 2022-03-07 00:00:00 204.6 [facility]lb_av[facility] Di[facility] 2021-10-27 00:00:00 68 mm[Hg] [facility] Height 2021-10-27 00:00:00 63 [in_i] [facility] BMI (Body Mass Index) 2021-10-27 00:00:00 35.3 kg/m2 [facility] BP Systolic 2021-10-27 00:00:00 130 mm[Hg] [facility] Body Weight 2021-10-27 00:00:00 199 [lb_av] [facility] BP Diastolic 2021-07-05 00:00:00 64 mm[Hg] [facility] Height 2021-07-05 00:00:00 63 [in_i] [facility] BMI (Body Mass Index) 2021-07-05 00:00:00 33.8 kg/m2 [facility] BP Systolic 2021-07-05 00:00:00 132 mm[Hg] [facility] Body Weight 2021-07-05 00:00:00 191 [lb_av] [facility] BP Diastolic 2021-06-27 00:00:00 62 mm[Hg] [facility] Height 2021-06-27 00:00:00 63 [in_i] [facility] BMI (Body Mass Index) 2021-06-27 00:00:00 33.3 kg/m2 [facility] BP Systolic 2021-06-27 00:00:00 130 mm[Hg] [facility] Body Weight 2021-06-27 00:00:00 188 [lb_av] [facility] BP Diastolic 2021-05-26 00:00:00 80 mm[Hg] [facility] Height 2021-05-26 00:00:00 63 [in_i] [facility] BMI (Body Mass Index) 2021-05-26 00:00:00 33.3 kg/m2 [facility] BP Systolic 2021-05-26 00:00:00 152 mm[Hg] [facility] Body Weight 2021-05-26 00:00:00 188 [lb_av] [facility] BP Diastolic 2021-03-22 00:00:00 78 mm[Hg] [facility] Height 2021-03-22 00:00:00 63 [in_i] [facility] BMI (Body Mass Index) 2021-03-22 00:00:00 32.1 kg/m2 [facility] BP Systolic 2021-03-22 00:00:00 138 mm[Hg] [facility] Body Weight 2021-03-22 00:00:00 181 [lb_av] [facility] BP Diastolic 2021-02-22 00:00:00 80 mm[Hg] [facility] Height 2021-02-22 00:00:00 63 [in_i] [facility] BMI (Body Mass Index) 2021-02-22 00:00:00 31.7 kg/m2 [facility] BP Systolic 2021-02-22 00:00:00 140 mm[Hg] [facility] Body Weight 2021-02-22 00:00:00 179 [lb_av] [facility] BP Diastolic 2020-11-15 00:00:00 80 mm[Hg] [facility] Height 2020-11-15 00:00:00 63 [in_i] [facility] BP Systolic 2020-11-15 00:00:00 156 mm[Hg] [facility] BP Diastolic 2020-10-19 00:00:00 73 mm[Hg] [facility] Height 2020-10-19 00:00:00 63 [in_i] [facility] BMI (Body Mass Index) 2020-10-19 00:00:00 31.4 kg/m2 [facility] BP Systolic 2020-10-19 00:00:00 153 mm[Hg] [facility] Body Weight 2020-10-19 00:00:00 177 [lb_av] [facility] BP Diastolic 2020-10-15 00:00:00 83 mm[facility]Hg[facility] 2020-10-15 00:00:00 63 [in_i] [facility] BMI (Body Mass Index) 2020-10-15 00:00:00 31.5 kg/m2 [facility] BP Systolic 2020-10-15 00:00:00 178 mm[Hg] [facility] Body Weight 2020-10-15 00:00:00 177.8 [lb_av] [facility] BP Diastolic 2020-09-21 00:00:00 84 mm[Hg] [facility] Height 2020-09-21 00:00:00 63 [in_i] [facility] BMI (Body Mass Index) 2020-09-21 00:00:00 32.6 kg/m2 [facility] BP Systolic 2020-09-21 00:00:00 154 mm[Hg] [facility] Body Weight 2020-09-21 00:00:00 184 [lb_av] [facility] Height 2020-08-05 00:00:00 63 [in_i] [facility] Height 2020-07-14 00:00:00 63 [in_i] [facility] BMI (Body Mass Index) 2020-07-14 00:00:00 32.2 kg/m2 [facility] Body Weight 2020-07-14 00:00:00 182 [lb_av] [facility] Procedures Procedure Date / Time Performed Performing Clinician Source KLAUSAFLO 2023-02-22 15:32:38 Alan Thao - External Screening for Malignant Neoplasm of Vagina 2022-11-02 00:00:00 [facility] Bone Density Scan 2022-11-02 00:00:00 [facility] bone density 2022-11-02 00:00:00 [facility] MAMMO, screening, digital, bilateral 2022-11-02 00:00:00 [facility] DEXA, axial skeleton 2022-11-02 00:00:00 [facility] XR, hip, unilateral 2022-11-02 00:00:00 [facility] US, breast, bilateral 2022-10-12 00:00:00 [facility] Mammography 2022-10-12 00:00:00 [facility] MAMMO, diagnostic, digital, bilateral 2022-10-11 00:00:00 [facility] US, breast, bilateral 2022-03-07 00:00:00 [facility] electrocardiogram 2022-03-07 00:00:00 [facility] MAMMO, unilateral, left and US, breast, left 2022-03-07 00:00:00 [facility] Ophthalmic Examination and Evaluation 2021-09-22 00:00:00 [facility] X-RAY OF KNEE 3 VIEW 2021-05-26 00:00:00 [facility] MAMMO, unilateral, left and US, breast, left 2021-05-03 00:00:00 [facility] Mohs Surgery 2021-03-26 00:00:00 [facility] MAMMO, diagnostic, bilateral 2021-03-15 00:00:00 [facility] electrocardiogram 2021-02-22 00:00:00 [facility] MAMMO, diagnostic, digital, bilateral 2021-02-22 00:00:00 [facility] MAMMO, screening, bilateral 2020-11-10 00:00:00 [facility] Mammography 2019-10-14 00:00:00 [facility] Colonoscopy 2016-05-31 00:00:00 [facility] Extraction of Cataract 2012-11-26 00:00:00 [facility] Back Surgery 2009-06-30 00:00:00 [facility] Total Replacement of Hip 2007-11-26 00:00:00 [facility] Hysterectomy (Total) 1999-11-26 00:00:00 [facility] Plan of Care Planned Activity Planned Date Details Comments Source Diagnostic Test Pending 2022-11-30 00:00:00 noninvasive colorectal cancer DNA + occult blood screening, QL, stool [code = noninvasive colorectal cancer DNA + occult blood screening, QL, stool] [facility] Instructions [facility] Encounters Start Date/Time End Date/Time Encounter Type Admission Type Attending Clinicians Care Facility Care Department Encounter ID Source 2024-08-12 14:00:00 2024-08-12 14:00:00 Outpatient BERTHA ALMARAZ [id number] [facility] 2024-05-25 00:00:00 2024-05-25 00:00:00 Outpatient ALAN THAO [id number] [facility] 2024-05-24 00:00:00 2024-05-24 00:00:00 Outpatient ALAN THAO [id number] [facility] 2024-05-09 11:00:00 2024-05-09 11:00:00 Outpatient BERTHA ALMARAZ [id number] [facility] 2024-05-09 00:00:00 2024-05-09 00:00:00 Outpatient BERTHA ALMARAZ [id number] [facility] 2024-05-09 00:00:00 2024-05-09 00:00:00 Outpatient MATT TRUONG [id number] [facility] 2024-05-07 00:00:00 2024-05-07 00:00:00 Outpatient CODEY MCCANN [id number] [facility] 2024-05-05 00:00:00 2024-05-05 00:00:00 Outpatient CODEY MCCANN [id number] [facility] 2024-05-01 00:00:00 2024-05-01 00:00:00 Outpatient ALAN THAO PATTI MCDOWELL [id number] [facility] 2024-04-29 11:00:00 2024-04-29 11:00:00 Outpatient DOMITILA PATHAK PATTI MCDOWELL [id number] [facility] 2024-04-24 14:35:00 2024-04-24 14:35:00 Outpatient PATTI MCDOWELL [id number] [facility] 2024-04-24 10:40:00 2024-04-24 10:40:00 Outpatient CHRISTINE DBKEISHA MCDOWELL [id number] [facility] 2024-04-24 00:00:00 2024-04-24 00:00:00 Outpatient CODEY MCCANN [id number] [facility] 2024-04-23 00:00:00 2024-04-23 00:00:00 Outpatient DAVID PHAM [id number] [facility] 2024-04-22 10:20:00 2024-04-22 10:20:00 Outpatient PATTI MCDOWELL [id number] [facility] 2024-04-22 10:15:00 2024-04-22 10:15:00 Outpatient CODEY MCCANN [id number] [facility] 2024-04-22 09:05:00 2024-04-22 09:05:00 Outpatient LABNikko MCDOWELL [id number] [facility] 2024-04-22 00:00:00 2024-04-22 00:00:00 Outpatient PATTI MCDOWELL [id number] [facility] 2024-04-18 11:30:00 2024-04-18 11:30:00 Outpatient PATTI MCDOWELL [id number] [facility] 2024-04-18 11:00:00 2024-04-18 11:00:00 Outpatient PATTI MCDOWELL [id number] [facility] 2024-04-18 10:00:00 2024-04-18 10:00:00 Outpatient PATTI MCDOWELL [id number] [facility] 2024-04-18 09:00:00 2024-04-18 09:00:00 Outpatient PATTI MCDOWELL [id number] [facility] 2024-04-17 00:00:00 2024-04-17 00:00:00 Outpatient RADIOLOGY, DEPT PATTI MCDOWELL [id number] [facility] 2024-04-16 13:55:00 2024-04-16 13:55:00 Outpatient ANKIT DAVID PATTI MCDOWELL [id number] [facility] 2024-04-15 00:00:00 2024-04-15 00:00:00 Outpatient CHRISTINE DB PATTI MCDOWELL [id number] [facility] 2024-04-14 10:32:00 2024-04-14 10:32:00 Outpatient CODEY MCCANN [id number] [facility] 2024-04-09 00:00:00 2024-04-09 00:00:00 Outpatient ALAN THAO [id number] [facility] 2024-04-03 10:00:00 2024-04-03 10:00:00 Outpatient CODEY MCCANN [id number] [facility] 2024-03-31 00:00:00 2024-03-31 00:00:00 Outpatient CODEY MCCANN [id number] [facility] 2024-03-27 10:15:00 2024-03-27 10:15:00 Outpatient CODEY MCCANN [id number] [facility] 2024-03-26 09:45:00 2024-03-26 09:45:00 Outpatient PATTI MCDOWELL [id number] [facility] 2024-03-26 09:30:00 2024-03-26 09:30:00 Outpatient PATTI MCDOWELL [id number] [facility] 2024-03-26 09:20:00 2024-03-26 09:20:00 Outpatient PATTI MCDOWELL [id number] [facility] 2024-03-26 09:00:00 2024-03-26 09:00:00 Outpatient CODEY MCCANN [id number] [facility] 2024-03-26 08:45:00 2024-03-26 08:45:00 Outpatient PATTI MCDOWELL [id number] [facility] 2024-03-26 07:30:00 2024-03-26 07:30:00 Outpatient PATTI MCDOWELL [id number] [facility] 2024-03-26 00:00:00 2024-03-26 00:00:00 Outpatient MORIAH MCCANNNATHAN PTATI MCDOWELL [id number] [facility] 2024-03-26 00:00:00 2024-03-26 00:00:00 Outpatient SIOBHAN CODEY MCDOWELL [id number] [facility] 2024-03-26 00:00:00 2024-03-26 00:00:00 Outpatient SIOBHAN CODEY MCDOWELL [id number] [facility] 2024-03-26 00:00:00 2024-03-26 00:00:00 Outpatient ALAN THAO [id number] [facility] 2024-03-20 15:00:00 2024-03-20 15:00:00 Outpatient MANJITJENNIFFER Redman [id number] [facility] 2024-03-20 13:50:00 2024-03-20 13:50:00 Outpatient LABEder MCDOWELL [id number] [facility] 2024-03-20 00:00:00 2024-03-20 00:00:00 Outpatient SIOBHAN CODEY MCDOWELL [id number] [facility] 2024-03-20 00:00:00 2024-03-20 00:00:00 Outpatient SIOBHANMORIAHCODEY PATTI MCDOWELL [id number] [facility] 2024-03-19 08:00:00 2024-03-19 08:00:00 Outpatient PATTI MCDOWELL [id number] [facility] 2024-03-18 14:45:00 2024-03-18 14:45:00 Outpatient 39, HOLTER PATTI MCDOWELL [id number] [facility] 2024-03-18 14:30:00 2024-03-18 14:30:00 Outpatient RADHA, JEAN PIERRE PATTI MCDOWELL [id number] [facility] 2024-03-17 00:00:00 2024-03-17 00:00:00 Outpatient CODEY MCCANN [id number] [facility] 2024-03-14 10:45:00 2024-03-14 10:45:00 Outpatient PREALAN CHO [id number] [facility] 2024-03-12 08:00:00 2024-03-12 08:00:00 Outpatient PATTI MCDOWELL [id number] [facility] 2024-03-05 08:00:00 2024-03-05 08:00:00 Outpatient PATTI MCDOWELL [id number] [facility] 2024-03-03 00:00:00 2024-03-03 00:00:00 Outpatient LARA [facility] PATTI MCDOWELL [id number] [facility] 2024-03-03 00:00:00 2024-03-03 00:00:00 Outpatient CODEY MCCANN [id number] [facility] 2024-02-29 00:00:00 2024-02-29 00:00:00 Outpatient PREALAN CHO [id number] [facility] 2024-02-28 00:00:00 2024-02-28 00:00:00 Outpatient PREALAN CHO [id number] [facility] 2024-02-27 00:00:00 2024-02-27 00:00:00 Outpatient PREZASALAN [id number] [facility] 2024-02-22 13:30:00 2024-02-22 13:30:00 Outpatient MAC, EKG- PATTI MCDOWELL [id number] [facility] 2024-02-22 11:50:00 2024-02-22 11:50:00 Outpatient LABNikko MCDOWELL [id number] [facility] 2024-02-22 10:00:00 2024-02-22 10:00:00 Outpatient CODEY MCCANN [id number] [facility] 2024-02-22 00:00:00 2024-02-22 00:00:00 Outpatient LARA, [facility] PATTI MCDOWELL [id number] [facility] 2024-02-22 00:00:00 2024-02-22 00:00:00 Outpatient PATTI MCDOWELL [id number] [facility] 2024-02-21 13:00:00 2024-02-21 13:00:00 Outpatient JAMES GARBER [id number] [facility] 2024-02-18 08:45:00 2024-02-18 08:45:00 Outpatient PATTI MCDOWELL [id number] [facility] 2024-02-18 08:40:00 2024-02-18 08:40:00 Outpatient PATTI MCDOWELL [id number] [facility] 2024-02-18 08:35:00 2024-02-18 08:35:00 Outpatient PATTI MCDOWELL [id number] [facility] 2024-02-18 00:00:00 2024-02-18 00:00:00 Outpatient PREZAS, ALAN PATTI MCDOWELL [id number] [facility] 2024-02-18 00:00:00 2024-02-18 00:00:00 Outpatient PREZAS, ALAN MCDOWELL [id number] [facility] 2024-02-18 00:00:00 2024-02-18 00:00:00 Outpatient PREZAS, ALAN MCDOWELL [id number] [facility] 2024-02-12 14:15:00 2024-02-12 14:15:00 Outpatient CODEY MCCANN [id number] [facility] 2024-02-11 00:00:00 2024-02-11 00:00:00 Outpatient PREZAS, ALAN MCDOWELL [id number] [facility] 2024-02-08 10:00:00 2024-02-08 10:00:00 Outpatient EDUCATION, ANA MCDOWELL [id number] [facility] 2024-02-07 11:00:00 2024-02-07 11:00:00 Outpatient LAB90 PATTI MCDOWELL [id number] [facility] 2024-02-07 10:00:00 2024-02-07 10:00:00 Outpatient ALAN THAO PATTI [id number] [facility] 2024-01-31 08:20:00 2024-01-31 08:20:00 Outpatient CONFERENCE, [facility] PATTI PATTI [id number] [facility] 2024-01-31 00:00:00 2024-01-31 00:00:00 Outpatient ALAN THAO PATTI [id number] [facility] 2024 00:00:00 2024 00:00:00 Outpatient ALAN THAO PATTI MCDOWELL [id number] [facility] 2024 00:00:00 2024 00:00:00 Outpatient ALAN THAO PATTI MCDOWELL [id number] [facility] 2024-01-25 14:20:00 2024-01-25 14:20:00 Outpatient PATTI MCDOWELL [id number] [facility] 2024-01-25 14:15:00 2024-01-25 14:15:00 Outpatient PATTI MCDOEWLL [id number] [facility] 2024-01-25 14:10:00 2024-01-25 14:10:00 Outpatient PATTI MCDOWELL [id number] [facility] 2024-01-25 13:45:00 2024-01-25 13:45:00 Outpatient PATTI MCDOWELL [id number] [facility] 2024-01-25 13:00:00 2024-01-25 13:00:00 Outpatient PATTI MCDOWELL [id number] [facility] 2024-01-25 11:15:00 2024-01-25 11:15:00 Outpatient CODEY MCCANN [id number] [facility] 2024-01-25 00:00:00 2024-01-25 00:00:00 Outpatient CODEY MCCANN [id number] [facility] 2024-01-25 00:00:00 2024-01-25 00:00:00 Outpatient SIOBHANCODEY PATTI MCDOWELL [id number] [facility] 2024-01-23 00:00:00 2024-01-23 00:00:00 Outpatient DB KING [id number] [facility] 2024-01-17 14:00:00 2024-01-17 14:00:00 Outpatient PREZAS, ALAN MCDOWELL [id number] [facility] 2024-01-17 11:00:00 2024-01-17 11:00:00 Outpatient CONFERENCE, [facility] PATTI MCDOWELL [id number] [facility] 2024-01-17 00:00:00 2024-01-17 00:00:00 Outpatient CONFERENCE, [facility] PATTI MCDOWELL [id number] [facility] 2024-01-17 00:00:00 2024-01-17 00:00:00 Outpatient DB KING [id number] [facility] 2024-01-16 14:00:00 2024-01-16 14:00:00 Outpatient PATTI MCDOWELL [id number] [facility] 2024-01-16 09:20:00 2024-01-16 09:20:00 Outpatient PATTI MCDOWELL [id number] [facility] 2024-01-15 10:30:00 2024-01-15 10:30:00 Outpatient PREZAS, ALAN MCDOWELL [id number] [facility] 2024-01-10 11:00:00 2024-01-10 11:00:00 Outpatient PREZAS, ALAN MCDOWELL [id number] [facility] 2023-12-12 00:00:00 2023-12-12 00:00:00 Outpatient PREZAS, ALAN MCDOWELL [id number] [facility] 2023-12-11 00:00:00 2023-12-11 00:00:00 Outpatient PREZAS, ALAN MCDOWELL [id number] [facility] 2023-12-11 00:00:00 2023-12-11 00:00:00 Outpatient RON HILL [id number] [facility] 2023-12-06 10:00:00 2023-12-06 10:00:00 Outpatient PATTI MCDOWELL [id number] [facility] 2023-12-06 08:40:00 2023-12-06 08:40:00 Outpatient PATTI MCDOWELL [id number] [facility] 2023-12-04 11:00:00 2023-12-04 11:00:00 Outpatient PREZAS, ALAN PATTI MCDOWELL [id number] [facility] 2023-12-03 15:00:00 2023-12-03 15:00:00 Outpatient PREZAS, ALAN PATTI MCDOWELL [id number] [facility]23-[facility]-29 00:00:00 2023-11-29 00:00:00 Outpatient PREZAS, ALAN PATTI MCDOWELL [id number] [facility] 2023-11-28 00:00:00 2023-11-28 00:00:00 Outpatient PREZAS, ALAN PATTI MCDOWELL [id number] [facility] 2023-11-22 00:00:00 2023-11-22 00:00:00 Outpatient PREZAS, ALAN PATTI MCDOWELL [id number] [facility] 2023-11-22 00:00:00 2023-11-22 00:00:00 Outpatient PREZAS, ALAN PATTI MCDOWELL [id number] [facility] 2023-11-22 00:00:00 2023-11-22 00:00:00 Outpatient PREZAS, ALAN PATTI MCDOWELL [id number] [facility] 2023-11-16 00:00:00 2023-11-16 00:00:00 Outpatient PREZAS, ALAN PATTI MCDOWELL [id number] [facility] 2023-11-13 13:30:00 2023-11-13 13:30:00 Outpatient FIGUEROANAOMI FARMER PATTI MCDOWELL [id number] [facility] 2023-10-31 16:40:00 2023-10-31 16:40:00 Outpatient LAB90 PATTI MCDOWELL [id number] [facility] 2023-10-31 15:30:00 2023-10-31 15:30:00 Outpatient PREZAS, ALAN MCDOWELL PATTI [id number] [facility] 2023-10-26 00:00:00 2023-10-26 00:00:00 Outpatient PREZAS, ALAN MCDOWELL PATTI [id number] [facility] 2023-10-22 00:00:00 2023-10-22 00:00:00 Outpatient PREZAS, ALAN MCDOWELL PATTI [id number] [facility] 2023-09-27 11:00:00 2023-09-27 11:00:00 Outpatient PREZAS, ALAN MCDOWELL PATTI [id number] [facility] 2023-09-20 00:00:00 2023-09-20 00:00:00 Outpatient PREZAS, ALAN PATTI MCDOWELL [id number] [facility] 2023-09-19 15:00:00 2023-09-19 15:00:00 Outpatient PREZAS, ALAN MCDOWELL PATTI [id number] [facility] 2023-09-19 00:00:00 2023-09-19 00:00:00 Outpatient PREZAS, ALAN PATTI MCDOWELL [id number] [facility] 2023-06-29 00:00:00 2023-06-29 00:00:00 Outpatient PREZAS, ALAN PATTI MCDOWELL [id number] [facility] 2023-06-28 14:55:00 2023-06-28 14:55:00 Outpatient LAB90 PATTI MCDOWELL [id number] [facility] 2023-06-28 14:15:00 2023-06-28 14:15:00 Outpatient PREZAS, ALAN PATTI MCDOWELL [id number] [facility] 2023-06-27 00:00:00 2023-06-27 00:00:00 Outpatient PREZAS, ALAN PATTI MCDOWELL [id number] [facility] 2023-05-28 14:20:00 2023-05-28 14:20:00 Outpatient DB KING [id number] [facility] 2023-05-22 15:15:00 2023-05-22 15:15:00 Outpatient PREZAS, ALAN MCDOWELL PATTI [id number] [facility] 2023-05-17 00:00:00 2023-05-17 00:00:00 Outpatient PREZAS, ALAN MCDOWELL PATTI [id number] [facility] 2023-05-04 00:00:00 2023-05-04 00:00:00 Outpatient PREZAS, ALAN MCDOWELL PATTI [id number] [facility]23-05-02 00:00:00 2023-05-02 00:00:00 Outpatient PREZAS, ALAN PATTI PATTI [id number] [facility] 2023-04-24 14:15:00 2023-04-24 14:15:00 Outpatient DOUGLAS PATTI MCDOWELL [id number] [facility] 2023-04-24 13:45:00 2023-04-24 13:45:00 Outpatient PREZAS, ALAN MCDOWELL PATTI [id number] [facility] 2023-04-19 10:10:00 2023-04-19 10:10:00 Outpatient GREGORY, NEHA PATTI MCDOWELL [id number] [facility] 2023-04-16 00:00:00 2023-04-16 00:00:00 Outpatient PREZAS, ALAN PATTI MCDOWELL [id number] [facility] 2023-04-13 00:00:00 2023-04-13 00:00:00 Outpatient PREZAS, ALAN PATTI MCDOWELL [id number] [facility] 2023-04-12 16:30:00 2023-04-12 16:30:00 Outpatient PATTI MCDOWELL [id number] [facility] 2023-04-12 16:25:00 2023-04-12 16:25:00 Outpatient PATTI MCDOWELL [id number] [facility] 2023-04-12 16:20:00 2023-04-12 16:20:00 Outpatient PATTI MCDOWELL [id number] [facility] 2023-04-05 00:00:00 2023-04-05 00:00:00 Outpatient Shahid_S VFP VFP [id number] Noel Sutherland e 2023-04-04 00:00:00 2023-04-04 00:00:00 Outpatient PREZAALAN Oates PATTI [id number] [facility] 2023-03-23 00:00:00 2023-03-23 00:00:00 Outpatient PREZAALAN Oates PATTI MCDOWELL [id number] [facility] 2023-03-22 13:45:00 2023-03-22 13:45:00 Outpatient PREZAALAN Oates PATTI MCDOWELL [id number] [facility] 2023-03-07 00:00:00 2023-03-07 00:00:00 Outpatient PREZAALAN Oates PATTI MCDOWELL [id number] [facility] 2023-02-26 00:00:00 2023-02-26 00:00:00 Outpatient ALAN THAO PATTI MCDOWELL [id number] [facility] 2023-02-22 11:15:00 2023-02-22 11:15:00 Outpatient LABLobo GRANADOSCAMILLE MCDOWELL [id number] [facility] 2023-02-22 10:15:00 2023-02-22 10:15:00 Outpatient PREZAALAN Oates PATTI [id number] [facility] 2023-01-28 12:30:00 2023-01-28 12:50:00 [facility], [facility]ending [facility] [id number] [facility] 2023-01-28 12:30:00 2023-01-28 12:30:00 Outpatient D[facility] [id number] [facility] 2023-01-19 00:00:00 2023-01-19 00:00:00 Outpatient Shahid_S VFP VFP [id number] Noel Sutherland e 2022-12-13 00:00:00 2022-12-13 00:00:00 Outpatient Shahid_S VFP VFP [id number] [facility] 2022-12-13 00:00:00 2022-12-13 00:00:00 Outpatient Shahid_S VFP VFP [id number] [facility] 2022-12-08 00:00:00 2022-12-08 00:00:00 Outpatient Shahid_S VFP VFP [id number] [facility] 2022-12-08 00:00:00 2022-12-08 00:00:00 Outpatient Shahid_S VFP VFP [id number] [facility] 2022-11-30 00:00:00 2022-11-30 00:00:00 Consuelo Heredia MD: [id number] [facility], [address], [place] [address] , Ph. VFP [place] - [facility] [place] - _HOPE_[facility] [id number] [facility] 2022-11-22 00:00:00 2022-11-22 00:00:00 Outpatient Levins_J VFP VFP [id number] [facility] 2022-11-22 00:00:00 2022-11-22 00:00:00 Outpatient Levins_J VFP VFP [id number] [facility] 2022-11-02 00:00:00 2022-11-02 00:00:00 Outpatient Levins_J VFP VFP [id number] [facility] 2022-11-02 00:00:00 2022-11-02 00:00:00 Outpatient Levins_J VFP VFP [id number] [facility] 2022-11-02 00:00:00 2022-11-02 00:00:00 Outpatient Levins_J VFP VFP [id number] [facility] 2022-11-02 00:00:00 2022-11-02 00:00:00 Outpatient Levins_J VFP VFP [id number] [facility] 2022-11-02 00:00:00 2022-11-02 00:00:00 Outpatient Levins_J VFP VFP [id number] [facility] 2022-11-02 00:00:00 2022-11-02 00:00:00 Outpatient Levins_J VFP VFP [id number] [facility] 2022-11-02 00:00:00 2022-11-02 00:00:00 Outpatient Levins_J VFP VFP [id number] [facility] 2022-11-02 00:00:00 2022-11-02 00:00:00 Consuelo Heredia MD: [id number] [facility], [facility] [[email or web address] [address] [place] [id number] , Ph. VFP [facility] - [place] - VM_H[facility] [id number] [facility] 2022-10-26 00:00:00 2022-10-26 00:00:00 Outpatient Levins_J VFP VFP [id number] [facility] 2022-10-23 00:00:00 2022-10-23 00:00:00 Outpatient Levins_J VFP VFP [id number] [facility] 2022-10-23 00:00:00 2022-10-23 00:00:00 Amada Sweet, PEDIATRIC RADIOLOGIST: [id number] [facility], [facility] [[email or web address] [address], [place] [address] , Ph. VFP [facility] - [place] - [facility] [id number] [facility] 2022-07-18 00:00:00 2022-07-18 00:00:00 Outpatient Levins_J VFP VFP [id number] [facility] 2022-06-30 00:00:00 2022-06-30 00:00:00 Outpatient Levins_J VFP VFP [id number] [facility] 2022-06-14 09:08:00 2022-06-14 09:08:00 Outpatient Levins_J VFP VFP [id number] [facility] 2022-06-14 00:00:00 2022-06-14 00:00:00 Xuan Chiang NP: [id number] [facility], [place] [phone] , Ph. VFP [facility] - [facility] [id number] [facility] 2022-05-23 02:28:00 2022-05-23 02:28:00 Outpatient Levins_J VFP VFP [id number] [facility] 2022-05-22 01:06:00 2022-05-22 01:06:00 Outpatient Levins_J VFP VFP [id number] [facility] 2022-05-22 00:00:00 2022-05-22 00:00:00 Viridiana Block MD: [address]375 [facility], [place] [phone] , Ph. VFP [place] [facility] - [facility] [id number] [facility] 2022-04-03 10:33:00 2022-04-03 10:33:00 Outpatient Levins_J VFP VFP [id number] [facility] 2022-03-07 02:21:00 2022-03-07 02:21:00 Outpatient Levins_J VFP VFP [id number] [facility] 2022-03-07 00:00:00 2022-03-07 00:00:00 Viridiana Block MD: 30309 [facility], [place] [phone] , Ph. VFP [facility] [id number] [facility] 2021-11-05 05:09:00 2021-11-05 05:09:00 Outpatient Levins_J VFP VFP [id number] [facility] 2021-11-04 02:44:00 2021-11-04 02:44:00 Outpatient Levins_J VFP VFP [id number] [facility] 2021-10-27 01:55:00 2021-10-27 01:55:00 Outpatient Levins_J VFP VFP [id number] [facility] 2021-10-27 00:00:00 2021-10-27 00:00:00 Viridiana Block MD: 07020 [facility], [place] [phone] , Ph. VFP [place] - [facility] - [facility] [id number] [facility] 2021-07-06 01:30:00 2021-07-06 01:30:00 Outpatient Levins_J VFP VFP [id number] [facility] 2021-07-05 02:12:00 2021-07-05 02:12:00 Outpatient Levins_J VFP VFP [id number] [facility] 2021-07-05 00:00:00 2021-07-05 00:00:00 Arnav Hayden PA: 82624 [facility], [place] [address], [place] [address] , Ph. VFP [place] - [facility] [id number] [facility] 2021-06-27 01:14:00 2021-06-27 01:14:00 Outpatient Levins_J VFP VFP [id number] [facility] 2021-06-27 00:00:00 2021-06-27 00:00:00 Viridiana Block MD: 55639 [facility], [address] [address] , Ph. VFP [place] - [facility] - [facility] [id number] [facility] 2021-06-15 01:57:00 2021-06-15 01:57:00 Outpatient Levins_J VFP VFP [id number] [facility] 2021-06-01 04:42:00 2021-06-01 04:42:00 Outpatient Levins_J VFP VFP [id number] [facility] 2021-05-28 04:52:00 2021-05-28 04:52:00 Outpatient Levins_J VFP VFP [id number] [facility] 2021-05-26 02:42:00 2021-05-26 02:42:00 Outpatient Levins_J VFP VFP [id number] [facility] 2021-05-26 00:00:00 2021-05-26 00:00:00 Yuval Rock, PEDIATRIC RADIOLOGIST: [address] [facility], [address] [address] , Ph. VFP [place] - [facility] - [facility] [id number] [facility] 2021-03-22 11:59:00 2021-03-22 11:59:00 Outpatient Levins_J VFP VFP [id number] [facility] 2021-03-22 00:00:00 2021-03-22 00:00:00 SYLVIA Vásquez: 02136 [facility], [place] [address], [place] [address] , Ph. VFP [place] - Replaced By [facility] - _[facility] [id number] [facility] 2021-03-02 02:59:00 2021-03-02 02:59:00 Outpatient Levins_J VFP VFP [id number] [facility] 2021-02-25 04:46:00 2021-02-25 04:46:00 Outpatient Levins_J VFP VFP [id number] [facility] 2021-02-22 04:45:00 2021-02-22 04:45:00 Outpatient Levins_J VFP VFP [id number] [facility] 2021-02-22 00:00:00 2021-02-22 00:00:00 Viridiana Block MD: 37188 [facility], [facility] [[email or web address] [address], [place] [address] , Ph. VFP [place] - [facility] - _[facility] [id number] [facility] 2020-11-22 06:15:00 2020-11-22 06:15:00 Outpatient Levins_J VFP VFP [id number] [facility] 2020-11-19 09:07:00 2020-11-19 09:07:00 Outpatient Levins_J VFP VFP [id number] [facility] 2020-11-18 11:26:00 2020-11-18 11:26:00 Outpatient Levins_J VFP VFP [id number] [facility] 2020-11-16 12:49:00 2020-11-16 12:49:00 Outpatient Levins_J VFP VFP [id number] [facility] 2020-11-15 10:40:00 2020-11-15 10:40:00 Outpatient Levins_J VFP VFP [id number] [facility] 2020-11-15 00:00:00 2020-11-15 00:00:00 Xuan Chiang, PEDIATRIC RADIOLOGIST: [address] [place] [address] , Ph. VFP [place] - Replaced By [facility] [id number] [facility] 2020-10-22 03:05:00 2020-10-22 03:05:00 Outpatient Levins_J VFP VFP [id number] [facility] 2020-10-19 05:18:00 2020-10-19 05:18:00 Outpatient Levins_J VFP VFP [id number] [facility] 2020-10-19 00:00:00 2020-10-19 00:00:00 Xuan Chiang, PEDIATRIC RADIOLOGIST: [address] [place] [phone] , Ph. VFP [place] - [facility] - [facility] [id number] [facility] 2020-10-15 04:11:00 2020-10-15 04:11:00 Outpatient Levins_J VFP VFP [id number] [facility] 2020-10-15 00:00:00 2020-10-15 00:00:00 Ester Francis MD: 93599 [facility], [address] [address] , Ph. VFP [place] - [facility] - [facility] [id number] [facility] 2020-10-13 02:34:00 2020-10-13 02:34:00 Outpatient Levins_J VFP VFP [id number] [facility] 2020-10-04 03:21:00 2020-10-04 03:21:00 Outpatient Levins_J VFP VFP [id number] [facility] 2020-09-21 03:19:00 2020-09-21 03:19:00 Outpatient Levins_J VFP VFP [id number] [facility] 2020-09-21 00:00:00 2020-09-21 00:00:00 Viridiana Block MD: 61574 [facility], [place] [phone] , Ph. VFP [place] - [facility] - [facility] [id number] [facility] 2020-08-10 09:38:00 2020-08-10 09:38:00 Outpatient Levins_Jo VFP VFP [id number] [facility] 2020-08-05 08:48:00 2020-08-05 08:48:00 Outpatient Levins_Jo VFP VFP [id number] [facility] 2020-08-05 00:00:00 2020-08-05 00:00:00 Amada Sweet, PEDIATRIC RADIOLOGIST: [address] [facility], [address] [place] [address] , Ph. VFP [place] - [facility] - [facility] [id number] [facility] 2020-07-18 02:41:00 2020-07-18 02:41:00 Outpatient Levins_Jo VFP VFP [id number] [facility] 2020-07-16 05:41:00 2020-07-16 05:41:00 Outpatient Levins_Jo VFP VFP [id number] [facility] 2020-07-14 09:12:00 2020-07-14 09:12:00 Outpatient Levins_Jo VFP VFP [id number] [facility] 2020-07-14 00:00:00 2020-07-14 00:00:00 Ester Francis MD: 38463 [facility], [address], [place] [address] , Ph. VFP [place] - Replaced By [facility] - [facility] [id number] [facility] 2020-07-02 01:42:00 2020-07-02 01:42:00 Outpatient Levins_Jo VFP VFP [id number] [facility] Results Test Description Test Time Test Comments Results Result Co mments Source Patti Hare - Externalpap, IG + HR [id number] 00:00:00* Test Item Value Reference Range Interpretation Comme nts Cytology report of Cervical or vaginal smear or scraping Cyto stain (test code = 19185-8) [facility] Statement of adequacy [Interpretation] of Cervical or vaginal smear or scraping by Cyto stain (test code = 64287-7) [facility] Diagnosis ICD code [Identifi er] (test code = 83571-8) [facility] Donkey Doctor who read Cyto sta in of Cervical or vaginal smear or scraping (test code = 88357-1) [facility] QC reviewed by: (test code = QC reviewed by:) [facility] Microscopic observation [Nicole ntifier] in Specimen by Other stain (test code = 07523-8) . note: (test code = note:) papsmr Cytology report of Cervical or vaginal smear or scraping Cyto stain.thin prep (test code = 73021-2) focpap Human papilloma virus 31+33+35+39+45+51+52+56+58+59+66+68 DNA [Presence] in Cervix by WENDY with probe detection (test code = 50605-3) positive negative A Human papilloma virus 16 DNA [Presence] in Cervix by WENDY with probe detection (test code = 67166-8) negative negative Human papilloma virus 18 DNA [Presence] in Cervix by WENDY with probe detection (test code = 88646-0) negative negative [facility], [id number] 17:06:00* Test Item Value Reference Range Interpretation Comme nts Occult Blood (test code = Oc cult Blood) negative [facility]/Creatinine [Mass Ratio] in [id number] 02:39:00* Test Item Value Reference Range Interpretation Comme nts creatinine, random urine (te st code = creatinine, random urine) 176 mg/dL 20-275 albumin, urine (test code = albumin, urine) 0.7 mg/dL see note: albumin/creatinine ratio, random urine (test code = albumin/creatinine ratio, random urine) 4 mcg/mg creat <30 [facility] 1995 panel - Serum or [id number] 02:39:00* Test Item Value Reference Range Interpretation Comme nts cholesterol, total (test code = cholesterol, total) 208 mg/dL <200 H HDL cholesterol (test code = HDL cholesterol) 68 mg/dL See_Comment [Automated Radicoa ge] The system which generated this result transmitted reference range: > or = 50. The reference range was not used to interpret this result as normal/abnormal. triglycerides (test code = triglycerides) 123 mg/dL <150 Cholesterol in LDL [Mass/volume] in Serum or Plasma (test code = 2089-1) 117 mg/dL (calc) H chol/HDLC ratio (test code = chol/HDLC ratio) 3.1 (calc) <5.0 non HDL cholesterol (test code = non HDL cholesterol) 140 mg/dL (calc) <130 H [facility]Com[facility] 1999 panel - Serum or Plasma 2021-10-19 02:39:00* Test Item Value Reference Range Interpretation Comme nts glucose (test code = glucose) 163 mg/dL 65-99 H urea nitrogen (BUN) (test code = urea nitrogen (BUN)) 14 mg/dL 7-25 creatinine (test code = creatinine) 0.95 mg/dL 0.60-0.88 H eGFR non-afr. grenadian (test code = eGFR non-afr. grenadian) 56 mL/min/1.73m2 See_Comment L [Automated message] The system which generated this result transmitted reference range: > or = 60. The reference range was not used to interpret this result as normal/abnormal. eGFR (test code = eGFR ) 65 mL/min/1.73m2 See_Comment [Automated message] The system which generated this result transmitted reference range: > or = 60. The reference range was not used to interpret this result as normal/abnormal. BUN/creatinine ratio (test code = BUN/creatinine ratio) 15 (calc) 6-22 sodium (test code = sodium) 144 mmol/L 135-146 potassium (test code = potassium) 3.9 mmol/L 3.5-5.3 chloride (test code = chloride) 102 mmol/L 98-110 carbon dioxide (test code = carbon dioxide) 34 mmol/L 20-32 H calcium (test code = calcium) 9.5 mg/dL 8.6-10.4 protein, total (test code = protein, total) 6.5 g/dL 6.1-8.1 albumin (test code = albumin) 4.2 g/dL 3.6-5.1 globulin (test code = globulin) 2.3 g/dL (calc) 1.9-3.7 albumin/globulin ratio (test code = albumin/globulin ratio) 1.8 (calc) 1.0-2.5 bilirubin, total (test code = bilirubin, total) 0.5 mg/dL 0.2-1.2 alkaline phosphatase (test code = alkaline phosphatase) 89 U/L 37-153 AST (test code = AST) 15 U/L 10-35 ALT (test code = ALT) 12 U/L 6-29 [facility]Hem[facility] A1c/Hemoglobin.total in [id number] 02:39:00* Test Item Value Reference Range Interpretation Comme [facility] Hemoglobin A1c/Hemoglobin.total in Blood (test code = 4548-4) 7.9 % of total HGB <5.7 H EAG (mg/dL) (test code = EAG (mg/dL)) 180 (calc) EAG (mmol/L) (test code = EAG (mmol/L)) 10.0 (calc) [facility] HospitalThyrotropin [Units/volume] in Serum or [id number] 02:39:00* Test Item Value Reference Range Interpretation Comme [facility] TSH (test code = TSH) 1.73 mIU/L 0.40-4.50 [facility] W Auto Differential panel - [id number] 02:39:00 * Test Item Value Reference Range Interpretation Comme nts white blood cell count (test code = white blood cell count) 7.3 thousand/uL 3.8-10.8 red blood cell count (test code = red blood cell count) 4.62 million/uL 3.80-5.10 hemoglobin (test code = hemoglobin) 13.5 g/dL 11.7-15.5 hematocrit (test code = hematocrit) 40.9 % 35.0-45.0 MCV (test code = MCV) 88.5 fL 80.0-100.0 MCH (test code = MCH) 29.2 pg 27.0-33.0 MCHC (test code = MCHC) 33.0 g/dL 32.0-36.0 RDW (test code = RDW) 13.0 % 11.0-15.0 platelet count (test code = platelet count) 190 thousand/uL 140-400 MPV (test code = MPV) 12.2 fL 7.5-12.5 absolute neutrophils (test code = absolute neutrophils) 4300 cells/uL 1730-8119 absolute lymphocytes (test code = absolute lymphocytes) 2000 cells/uL 850-3900 absolute monocytes (test cod e = absolute monocytes) 708 cells/uL 200-950 absolute eosinophils (test code = absolute eosinophils) 219 cells/uL 15-500 absolute basophils (test cod e = absolute basophils) 73 cells/uL 0-200 neutrophils (test code = neutrophils) 58.9 % lymphocytes (test code = lymphocytes) 27.4 % monocytes (test code = monocytes) 9.7 % eosinophils (test code = eosinophils) 3.0 % basophils (test code = basophils) 1.0 % [facility] PracticeUrinal[facility] complete W Reflex Culture panel - Urine 2021-10-19 02:39:00* Test Item Value Reference Range Interpretation Comme nts color (test code = color) yellow yellow appearance (test code = appearance) clear clear specific gravity (test code = specific gravity) 1.016 1.001-1.035 pH (test code = pH) 7.0 5.0-8.0 glucose (test code = glucose) trace negative A bilirubin (test code = bilirubin) negative negative ketones (test code = ketones) negative negative occult blood (test code = occult blood) negative negative protein (test code = protein) negative negative nitrite (test code = nitrite) negative negative leukocyte esterase (test code = leukocyte esterase) 2+ negative A WBC (test code = WBC) 6-10 See_Comment A [A utomated message] The system which generated this result transmitted reference range: < or = 5. The reference range was not used to interpret this result as normal/abnormal. RBC (test code = RBC) 0-2 See_Comment [A utomated message] The system which generated this result transmitted reference range: < or = 2. The reference range was not used to interpret this result as normal/abnormal. squamous epithelial cells (test code = squamous epithelial cells) 0-5 See_Comment [Automated messa ge] The system which generated this result transmitted reference range: < or = 5. The reference range was not used to interpret this result as normal/abnormal. bacteria (test code = bacteria) none seen none seen hyaline cast (test code = hyaline cast) none seen none seen [facility] HospitalBacteria identified in Urine by [id number] 02:39:00Reflexive Urine CultureAllen Parish HospitalBacteria identified in Urine by [id number] 02:39:00Culture, Urine, RoutineViTwin Cities Community HospitalPathology [id number] 15:47:00Clinical InformationPathologistSt. Tammany Parish Hospitalurgical pathology [id number] 15:47:00A SourceA ProcedureA Gross DescriptionA Micro DescriptionA DiagnosisAllen Parish Hospitaltest in question- misc [id number] 16:37:00* Test Item Value Reference Range Interpretation Comme nts question/problem: (test code = question/problem:) question: (test code = question:) doc on sample comment (test code = comment) [facility] Hospitalfecal occult blood, [id number] 16:37:00Fecal Globin by Immunochem. (Medicare)[facility]reprecated Calcidiol+Calciferol [Mass/volume] in Serum or [id number] 02:53:00* Test Item Value Reference Range Interpretation Comme nts vitamin D, 1,25 (oh)2, total (test code = vitamin D, 1,25 (oh)2, total) 48 pg/mL 18-72 vitamin D3, 1,25 (oh)2 (test code = vitamin D3, 1,25 (oh)2) 48 pg/mL vitamin D2, 1,25 (oh)2 (test code = vitamin D2, 1,25 (oh)2) <8 [facility] HospitalProlactin [Mass/volume] in Serum or [id number] 02:53:00* Test Item Value Reference Range Interpretation Comme nts prolactin (test code = prolactin) 3.9 NG/mL [facility] HospitalThyrotropin [Units/volume] in Serum or [id number] 16:38:00* Test Item Value Reference Range Interpretation Comme nts TSH (test code = TSH) 1.232 uIU/mL 0.350-4.940 [facility] HospitalUrinalysis complete W Reflex Culture panel - Urine 2021-02-24 04:27:00* Test Item Value Reference Range Interpretation Comme nts color (test code = color) yellow yellow appearance (test code = appearance) clear clear specific gravity (test code = specific gravity) 1.020 1.001-1.035 pH (test code = pH) 5.5 5.0-8.0 glucose (test code = glucose) negative negative bilirubin (test code = bilirubin) negative negative ketones (test code = ketones) negative negative occult blood (test code = occult blood) negative negative protein (test code = protein) negative negative nitrite (test code = nitrite) negative negative leukocyte esterase (test code = leukocyte esterase) 1+ negative A WBC (test code = WBC) 6-10 See_Comment A [A utomated message] The system which generated this result transmitted reference range: < or = 5. The reference range was not used to interpret this result as normal/abnormal. RBC (test code = RBC) none seen See_Comment [A utomated message] The system which generated this result transmitted reference range: < or = 2. The reference range was not used to interpret this result as normal/abnormal. squamous epithelial cells (test code = squamous epithelial cells) 0-5 See_Comment [Automated Radicoa ge] The system which generated this result transmitted reference range: < or = 5. The reference range was not used to interpret this result as normal/abnormal. bacteria (test code = bacteria) none seen none seen hyaline cast (test code = hyaline cast) none seen none seen [facility] HospitalBacteria identified in Urine by [id number] 04:27:00Reflexive Urine CultureAllen Parish HospitalBacteria identified in Urine by [id number] 04:27:00Culture, Urine, [facility]Urinal[facility] W Reflex Culture panel - [id number] 04:27:00* Test Item Value Reference Range Interpretation Comme nts color (test code = color) yellow yellow appearance (test code = appearance) clear clear specific gravity (test code = specific gravity) 1.020 1.001-1.035 pH (test code = pH) 5.5 5.0-8.0 glucose (test code = glucose) negative negative bilirubin (test code = bilirubin) negative negative ketones (test code = ketones) negative negative occult blood (test code = occult blood) negative negative protein (test code = protein) negative negative nitrite (test code = nitrite) negative negative leukocyte esterase (test code = leukocyte esterase) 1+ negative A WBC (test code = WBC) 6-10 See_Comment A [A utomated message] The system which generated this result transmitted reference range: < or = 5. The reference range was not used to interpret this result as normal/abnormal. RBC (test code = RBC) none seen See_Comment [A utomated message] The system which generated this result transmitted reference range: < or = 2. The reference range was not used to interpret this result as normal/abnormal. squamous epithelial cells (test code = squamous epithelial cells) 0-5 See_Comment [Automated messa ge] The system which generated this result transmitted reference range: < or = 5. The reference range was not used to interpret this result as normal/abnormal. bacteria (test code = bacteria) none seen none seen hyaline cast (test code = hyaline cast) none seen none seen [facility] HospitalBacteria identified in Urine by [id number] 04:27:00Reflexive Urine CultureAllen Parish HospitalBacteria identified in Urine by [id number] 04:27:00Culture, Urine, [facility] HospitalHemoglobin A1c/Hemoglobin.total in [id number] 13:32:00* Test Item Value Reference Range Interpretation Comme nts Hemoglobin A1c/Hemoglobin.to keesha in Blood (test code = 4548-4) 8.3 % 1.0-5.7 H average blood glucose (calcu lation) (test code = average blood glucose (calculation)) 192 mg/dL [facility] HospitalComprehensive metabolic 1999 panel - Serum or Plasma 2021-02-23 12:23:00* Test Item Value Reference Range Interpretation Comme nts ALT (test code = ALT) 27 U/L 0-55 AST (test code = AST) 19 U/L 5-34 BUN (test code = BUN) 15.2 mg/dL 9.8-25.0 alk phos (test code = alk phos) 101 unit/L 40-150 glucose (test code = glucose) 187 mg/dL 70-99 H albumin (test code = albumin) 4.0 g/dL 3.4-5.1 creatinine (test code = creatinine) 0.97 mg/dL 0.57-1.11 eGFR non- (test code = eGFR non-) 55 mL/min/1.73m2 A total bilirubin (test code = total bilirubin) 0.5 mg/dL 0.2-1.2 eGFR - (test code = eGFR - ) >60 sodium (test code = sodium) 143 mEq/L 135-145 potassium (test code = potassium) 3.3 mEq/L 3.5-5.3 L chloride (test code = chloride) 101 mmol/L 98-110 total protein (test code = total protein) 6.4 g/dL 6.1-8.2 calcium (test code = calcium) 9.0 mg/dL 8.6-10.4 CO2 (test code = CO2) 32.6 mmol/L 20.0-32.0 H anion gap (test code = anion gap) 9 calc [facility] HospitalLipid 1995 panel - Serum or [id number] 12:23:00* Test Item Value Reference Range Interpretation Comme [facility] HDL (test code = HDL) 60 mg/dL triglyceride (test code = triglyceride) 128 mg/dL <150 VLDL (calculated) (test code = VLDL (calculated)) 26 mg/dL cholesterol/HDL ratio (test code = cholesterol/HDL ratio) 3.6 mg/dL non-HDL cholesterol (calcula ton) (test code = non-HDL cholesterol (calculated)) 157 mg/dL <160 cholesterol (test code = cholesterol) 217 mg/dL <200 H Cholesterol in LDL [Mass/vol ume] in Serum or Plasma (test code = 2089-1) 131 mg/dL <130 H [facility] HospitalMicroalbumin/Creatinine [Mass Ratio] in [id number] 11:11:00* Test Item Value Reference Range Interpretation Comme nts microalbumin random urine (test code = microalbumin random urine) 13 ug/mL creatinine random urine (ellen t code = creatinine random urine) 215.2 mg/dL 20.0-320.0 microalbumin/creatinine (random urine) ratio calculated (test code = microalbumin/creatinine (random urine) ratio calculated) 6 mcg/mg creat [facility] HospitalMicroalbumin/Creatinine [Mass Ratio] in [id number] 11:11:00* Test Item Value Reference Range Interpretation Comme nts microalbumin random urine (test code = microalbumin random urine) 13 ug/mL creatinine random urine (ellen t code = creatinine random urine) 215.2 mg/dL 20.0-320.0 microalbumin/creatinine (random urine) ratio calculated (test code = microalbumin/creatinine (random urine) ratio calculated) 6 mcg/mg [facility] Auto Differential panel - [id number] 10:31:00 * Test Item Value Reference Range Interpretation Comme nts WBC (test code = WBC) 8.45 x10*3/?L 3.98-10.04 RBC (test code = RBC) 4.83 10*12/L 3.93-5.22 hemoglobin (test code = hemoglobin) 13.70 g/dL 11.20-15.70 hematocrit (test code = hematocrit) 43.0 % 34.1-44.9 MCV (test code = MCV) 89.0 fL 80.0-100.0 MCH (test code = MCH) 28.4 pg 25.6-32.2 MCHC (test code = MCHC) 31.9 g/dL 32.2-35.5 L RDW-SD (test code = RDW-SD) 45.6 fL 36.4-46.3 platelet count (test code = platelet count) 184.0 k/uL 182.0-369.0 MPV (test code = MPV) 12.5 fL [...] (test code = baso#) 0.08 x10*3/?L 0.01-0.08 [facility] W Auto Differential panel - [id number] 13:01:00 * Test Item Value Reference Range Interpretation Comme nts WBC (test code = WBC) 8.92 x10*3/?L 3.98-10.04 RBC (test code = RBC) 4.46 10*12/L 3.93-5.22 hemoglobin (test code = hemoglobin) 13.00 g/dL 11.20-15.70 hematocrit (test code = hematocrit) 40.1 % 34.1-44.9 MCV (test code = MCV) 89.9 fL 80.0-100.0 MCH (test code = MCH) 29.1 pg 25.6-32.2 MCHC (test code = MCHC) 32.4 g/dL 32.2-35.5 RDW-SD (test code = RDW-SD) 45.8 fL 36.4-46.3 platelet count (test code = platelet count) 171.0 k/uL 182.0-369.0 L MPV (test code = MPV) 12.9 fL [...] (test code = baso#) 0.04 x10*3/?L 0.01-0.[address] [facility] Auto Differential panel - [id number] 13:01:00 * Test Item Value Reference Range Interpretation Comme nts WBC (test code = WBC) 8.92 x10*3/?L 3.98-10.04 RBC (test code = RBC) 4.46 10*12/L 3.93-5.22 hemoglobin (test code = hemoglobin) 13.00 g/dL 11.20-15.70 hematocrit (test code = hematocrit) 40.1 % 34.1-44.9 MCV (test code = MCV) 89.9 fL 80.0-100.0 MCH (test code = MCH) 29.1 pg 25.6-32.2 MCHC (test code = MCHC) 32.4 g/dL 32.2-35.5 RDW-SD (test code = RDW-SD) 45.8 fL 36.4-46.3 platelet count (test code = platelet count) 171.0 k/uL 182.0-369.0 L MPV (test code = MPV) 12.9 fL [...] (test code = baso#) 0.04 x10*3/?L 0.01-0.08 [facility] - Serum or Plasma 2020-09-22 12:41:00* Test Item Value Reference Range Interpretation Comme nts ALT (test code = ALT) 18 U/L 0-55 AST (test code = AST) 17 U/L 5-34 BUN (test code = BUN) 15.7 mg/dL 9.8-25.0 alk phos (test code = alk phos) 100 unit/L 40-150 glucose (test code = glucose) 180 mg/dL 70-99 H albumin (test code = albumin) 3.7 g/dL 3.4-5.1 creatinine (test code = creatinine) 1.26 mg/dL 0.57-1.11 H eGFR non- (test code = eGFR non-) 41 mL/min/1.73m2 A total bilirubin (test code = total bilirubin) 0.4 mg/dL 0.2-1.2 eGFR - (test code = eGFR - ) 49 mL/min/1.73m2 A sodium (test code = sodium) 139 mEq/L 135-145 potassium (test code = potassium) 3.8 mEq/L 3.5-5.3 chloride (test code = chloride) 99 mmol/L 98-110 total protein (test code = total protein) 6.1 g/dL 6.1-8.2 calcium (test code = calcium) 9.0 mg/dL 8.6-10.4 CO2 (test code = CO2) 32.7 mmol/L 20.0-32.0 H anion gap (test code = anion gap) 7 calc [facility] - Serum or [id number] 12:41:00* Test Item Value Reference Range Interpretation Comme [facility] HDL (test code = HDL) 56 mg/dL triglyceride (test code = triglyceride) 111 mg/dL <150 VLDL (calculated) (test code = VLDL (calculated)) 22 mg/dL cholesterol/HDL ratio (test code = cholesterol/HDL ratio) 3.6 mg/dL non-HDL cholesterol (calcula ton) (test code = non-HDL cholesterol (calculated)) 145 mg/dL <160 cholesterol (test code = cholesterol) 201 mg/dL <200 H Cholesterol in LDL [Mass/vol ume] in Serum or Plasma (test code = 2089-1) 123 mg/dL <130 [facility] [Units/volume] in Serum or [id number] 12:41:00* Test Item Value Reference Range Interpretation Comme [facility] TSH (test code = TSH) 1.385 uIU/mL 0.350-4.940 [facility] 1999 [facility] - Serum or Plasma 2020-09-22 12:41:00* Test Item Value Reference Range Interpretation Comme [facility] ALT (test code = ALT) 18 U/L 0-55 AST (test code = AST) 17 U/L 5-34 BUN (test code = BUN) 15.7 mg/dL 9.8-25.0 alk phos (test code = alk phos) 100 unit/L 40-150 glucose (test code = glucose) 180 mg/dL 70-99 H albumin (test code = albumin) 3.7 g/dL 3.4-5.1 creatinine (test code = creatinine) 1.26 mg/dL 0.57-1.11 H eGFR non- (test code = eGFR non-) 41 mL/min/1.73m2 A total bilirubin (test code = total bilirubin) 0.4 mg/dL 0.2-1.2 eGFR - (test code = eGFR - ) 49 mL/min/1.73m2 A sodium (test code = sodium) 139 mEq/L 135-145 potassium (test code = potassium) 3.8 mEq/L 3.5-5.3 chloride (test code = chloride) 99 mmol/L 98-110 total protein (test code = total protein) 6.1 g/dL 6.1-8.2 calcium (test code = calcium) 9.0 mg/dL 8.6-10.4 CO2 (test code = CO2) 32.7 mmol/L 20.0-32.0 H anion gap (test code = anion gap) 7 calc [facility] panel - Serum or [id number] 12:41:00* Test Item Value Reference Range Interpretation Comme nts HDL (test code = HDL) 56 mg/dL triglyceride (test code = triglyceride) 111 mg/dL <150 VLDL (calculated) (test code = VLDL (calculated)) 22 mg/dL cholesterol/HDL ratio (test code = cholesterol/HDL ratio) 3.6 mg/dL non-HDL cholesterol (calcula ton) (test code = non-HDL cholesterol (calculated)) 145 mg/dL <160 cholesterol (test code = cholesterol) 201 mg/dL <200 H Cholesterol in LDL [Mass/vol ume] in Serum or Plasma (test code = 2089-1) 123 mg/dL <130 [facility] [Units/volume] in Serum or [id number] 12:41:00* Test Item Value Reference Range Interpretation Comme nts TSH (test code = TSH) 1.385 uIU/mL 0.350-4.940 [facility]Creatinine [Mass Ratio] in [id number] 11:53:00* Test Item Value Reference Range Interpretation Comme nts microalbumin random urine (test code = microalbumin random urine) 6 ug/mL creatinine random urine (ellen t code = creatinine random urine) 151.6 mg/dL 20.0-320.0 microalbumin/creatinine (random urine) ratio calculated (test code = microalbumin/creatinine (random urine) ratio calculated) 4 mcg/mg creat [facility]inine [Mass Ratio] in [id number] 11:53:00* Test Item Value Reference Range Interpretation Comme nts microalbumin random urine (test code = microalbumin random urine) 6 ug/mL creatinine random urine (ellen t code = creatinine random urine) 151.6 mg/dL 20.0-320.0 microalbumin/creatinine (random urine) ratio calculated (test code = microalbumin/creatinine (random urine) ratio calculated) 4 mcg/mg creat [facility] A1c/Hemoglobin.total in [id number] 11:04:00* Test Item Value Reference Range Interpretation Comme nts Hemoglobin A1c/Hemoglobin.to keesha in Blood (test code = 4548-4) 9.0 % 1.0-5.7 H average blood glucose (calcu lated) (test code = average blood glucose (calculated)) 212 mg/dL [facility] A1c/Hemoglobin.total in [id number] 11:04:00* Test Item Value Reference Range Interpretation Comme nts Hemoglobin A1c/Hemoglobin.to keesha in Blood (test code = 4548-4) 9.0 % 1.0-5.7 H average blood glucose (calcu lated) (test code = average blood glucose (calculated)) 212 mg/dL [facility] Notes Date/Time Note Provider Source 2024-03-20 13:56:51 3715-96-74T79:56:51F ormatting of this note is different from the original.Chief ComplaintPatient presents withWell Woman Exam84 yr [place] [address]-1Snkke BzdtJS5990-02-25K54:57:39Nurse [id number]. [id number] for patient [id number] NoteLNNARRATIVEFormatted C-CDA narrative textDARWINTriHealth [facility] [facility] [id number] [id number]:57:391.2.840.995862.1.7 2.3.15|1.2.840.027016.1.13.131.2.7.2. [id number] [facility] 2024-03-14 10:32:48 1568-63-94U19:32:48F ormatting of this note is different from the original.Chief ComplaintPatient presents withDiabetesBlood Pressure 35292-5Cbnla RsuySP1920-57-57A08:33:05Nurse [id number].2. [id number] for patient [id number] NoteLNNARRATIVEFormatted C-CDA narrative textBel[facility] Hospital[address] [facility].[id number] [id number]:33:051.2.840.252599.1.7 2.3.15|1.2.840.184536.1.13.131.2.7.2. [id number] [facility]"
[2024-05-29] MEDS ORDERED: KETOROLAC 30 MG/ML INJ ONE (05:54)
[2024-05-29] MEDS ORDERED: HYDROCODONE/APAP 10/325 TAB ONE (05:55)
--- NOTE | 2024-05-29 06:37 | RAD REPORT ---
EXAM DESCRIPTION: RAD - Hip Left 2 View - 05/29/2024 6:18 am CLINICAL HISTORY: PAIN COMPARISON: No comparisons FINDINGS/IMPRESSION: No acute fracture. No dislocation Severe left acetabular degenerative changes.
--- NOTE | 2024-05-29 07:11 | ER ---
Nurse's Notes [facility] Name: Harmony Rodriguez Age: 84 yrs Sex: Female : 1940 Arrival Date: 05/29/2024 Time: 05:19 Bed 5 Private MD: Diagnosis: Osteoarthritis of left hip Presentation: 05/29 05:37 Chief complaint: Patient states: pain on the left hip. Coronavirus screen: Vaccine rg5 status: Patient reports receiving the 2nd dose of the covid vaccine. Client denies travel out of the [place] in the last 14 days. Ebola Screen: Patient negative for fever greater than or equal to 101.5 degrees Fahrenheit, and additional compatible Ebola Virus Disease symptoms. Initial Sepsis Screen: Does the patient meet any 2 criteria? No. Patient's initial sepsis screen is negative. Does the patient have a suspected source of infection? No. Patient's initial sepsis screen is negative. Risk Assessment: Do you want to hurt yourself or someone else? Patient reports no desire to harm self or others. Onset of symptoms was May 29, 2024. 05:37 Method Of Arrival: Wheelchair rg5 05:37 Acuity: NOEL 3 rg5 Triage Assessment: 05:43 General: Appears uncomfortable, Behavior is calm, cooperative, appropriate for age. rg5 Pain: Complains of pain in left hip Pain does not radiate. Pain currently is 10 out of 10 on a pain scale. Quality of pain is described as aching, Pain began 1 day ago. Is intermittent, Alleviated by medications, repositioning, Aggravated by increased activity, weight bearing. EENT: No deficits noted. Neuro: Level of Consciousness is awake, alert, obeys commands, Oriented to person, place, time. Cardiovascular: Capillary refill < 3 seconds. Respiratory: Airway is patent Respiratory effort is even, relaxed, Respiratory pattern is regular. GI: Abdomen is round non-distended. : No signs and/or symptoms were reported regarding the genitourinary system. Derm: Skin is intact, Skin is dry, Skin is pink, warm \T\ dry. Musculoskeletal: Reports pain in left leg. Historical: - Allergies: 05:43 Codeine; rg5 05:43 PENICILLINS; rg5 05:43 Talwin; rg5 - PMHx: 05:43 Diabetes - NIDDM; heart disease; Hypertension; rg5 06:38 LEFT BREAST CA; rg5 - PSHx: 06:38 Partial left breast mastectomy; rg5 - Immunization history:: Adult Immunizations up to date, Client reports receiving the 2nd dose of the Covid vaccine. - Infectious Disease History:: Denies. - Social history:: Smoking status: Patient denies any tobacco usage or history of. - Family history:: not pertinent. Screenin:49 [facility] ED Fall Risk Assessment (Adult) History of falling in the last 3 months, rg5 including since admission No falls in past 3 months (0 pts) Confusion or Disorientation No (0 pts) Intoxicated or Sedated No (0 pts) Impaired Gait Yes (1 pt) Mobility Assist Device Used Yes (1 pt) Altered Elimination Yes (1 pt) Score/Fall Risk Level 3 or more points = High Risk Oriented to surroundings, Maintained a safe environment, Assessed \T\ reinforced patient's understanding of fall precautions, Provided non-skid footwear, Hourly rounding (assess needs \T\ fall precautionary measures) done, Used ambulatory aids as needed (educated on \T\ assisted with). Abuse screen: Denies threats or abuse. Nutritional screening: No deficits noted. Tuberculosis screening: No symptoms or risk factors identified. Assessment: 06:41 Reassessment: Patient and/or family updated on plan of care and expected duration. Pain rg5 level reassessed. Patient is alert, oriented x 3, equal unlabored respirations, skin warm/dry/pink. Patient states symptoms have improved. Vital Signs: 05:37 BP 156 / 53; Pulse 72; Resp 18; Temp 98.2; Pulse Ox 100% ; Weight 90.72 kg; Height 5 rg5 ft. 5 in. ; Pain 10/10; 06:32 BP 163 / 83; Pulse 89; Resp 17; Temp 98; Pulse Ox 100% ; Pain 7/10; rg5 07:31 BP 158 / 82; Pulse 88; Resp 16; Pulse Ox 97% ; ko1 05:37 Body Mass Index 33.28 (90.72 kg, 165.1 cm) rg5 05:37 Pain Scale: Adult rg5 06:32 Pain Scale: Adult rg5 [place] Coma Score: 05:49 Eye Response: spontaneous(4). Motor Response: obeys commands(6). Verbal Response: rg5 oriented(5). Total: 15. ED Course: 05:23 Patient arrived in ED. mr 05:26 Maximo West, MAGNOLIA is Primary Nurse. rg5 05:27 Gregorio Corea MD is Attending Physician. rt 05:43 Triage completed. rg5 05:43 Arm band placed on right wrist. Patient placed on manager cardiac cath, on pulse oximetry. rg5 05:49 Patient has correct armband on for positive identification. Fall risk band placed. Bed rg5 in low position. Call light in reach. Side rails up X 1. Adult w/ patient. 05:49 No provider procedures requiring assistance completed. rg5 06:20 Hip Left 2 View XRAY In Process Unspecified. EDMS 07:31 Provided Education on: medications. ko1 07:31 Patient did not have IV access during this emergency room visit. ko1 Administered Medications: 06:02 Drug: Nixa PO 10 mg-325 mg 1 tabs PO once Route: PO; rg5 06:54 Follow up: Response: Pain is decreased rg5 06:02 Drug: Ketorolac IM 15 mg IM once Route: IM; Site: right deltoid; rg5 06:53 Follow up: Response: Pain is decreased rg5 07:23 Drug: morphine IM 2 mg IM once Route: IM; Site: left deltoid; ko1 07:34 Follow up: Response: No adverse reaction; Medication administered at discharge. ko1 Medication: 05:49 VIS not applicable for this client. rg5 Outcome: 07:11 Discharge ordered by . rt 07:31 Discharged to home via wheelchair, with family, ko1 07:31 Condition: improved 07:31 Discharge instructions given to patient, family, Instructed on discharge instructions, follow up and referral plans. medication usage, Demonstrated understanding of instructions, follow-up care, medications, Prescriptions given X 2, 07:34 Patient left the ED. ko1 Signatures: Dispatcher [employer] EDVA De AndaMegan, Reg Reg Kim Claros, RN RN ko1 Gregorio Corea MD MD rt Maximo West, MAGNOLIA RN rg5
--- NOTE | 2024-05-29 07:11 | EDPHYS ---
Physician Documentation [facility] Name: Harmony Rodriguez Age: 84 yrs Sex: Female : 1940 Arrival Date: 05/29/2024 Time: 05:19 Bed 5 Private MD: ED Physician Gregorio Corea HPI: 05/29 07:00 This 84 yrs old Female presents to ER via Wheelchair with complaints of Hip Pain. rt 07:00 Patient with known arthritis presents to the ED with worsening pain to the left hip rt over the past few days. Patient is having difficulty ambulating due to the pain. It was scheduled to be replaced, however, patient have recent diagnosis of breast cancer which took precedence as far as care. Denies trauma, other acute complaints, symptoms are aching nature, nonradiating, moderate in severity, no other aggravating alleviating factors.. Historical: - Allergies: 05:43 Codeine; rg5 05:43 PENICILLINS; rg5 05:43 Talwin; rg5 - PMHx: 05:43 Diabetes - NIDDM; heart disease; Hypertension; rg5 06:38 LEFT BREAST CA; rg5 - PSHx: 06:38 Partial left breast mastectomy; rg5 - Immunization history:: Adult Immunizations up to date, Client reports receiving the 2nd dose of the Covid vaccine. - Infectious Disease History:: Denies. - Social history:: Smoking status: Patient denies any tobacco usage or history of. - Family history:: not pertinent. ROS: 07:00 Constitutional: Negative for fever, chills, and weight loss, Cardiovascular: Negative rt for chest pain, palpitations, and edema, Respiratory: Negative for shortness of breath, cough, wheezing, and pleuritic chest pain, Abdomen/GI: Negative for abdominal pain, nausea, vomiting, diarrhea, and constipation, Skin: Negative for injury, rash, and discoloration, Neuro: Negative for headache, weakness, numbness, tingling, and seizure, 07:00 MS/extremity: Positive for pain, Negative for injury or acute deformity, Exam: 07:00 Constitutional: This is a well developed, well nourished patient who is awake, alert, rt and in no acute distress. Head/Face: Normocephalic, atraumatic. Chest/axilla: Normal chest wall appearance and motion. Nontender with no deformity. No lesions are appreciated. Cardiovascular: Regular rate and rhythm with a normal S1 and S2. No gallops, murmurs, or rubs. Normal PMI, no JVD. No pulse deficits. Respiratory: Lungs have equal breath sounds bilaterally, clear to auscultation and percussion. No rales, rhonchi or wheezes noted. No increased work of breathing, no retractions or nasal flaring. Abdomen/GI: Soft, non-tender, with normal bowel sounds. No distension or tympany. No guarding or rebound. No evidence of tenderness throughout. Skin: Warm, dry with normal turgor. Normal color with no rashes, no lesions, and no evidence of cellulitis. Neuro: Awake and alert, GCS 15, oriented to person, place, time, and situation. Cranial nerves II-XII grossly intact. Motor strength 5/5 in all extremities. Sensory grossly intact. Cerebellar exam normal. Normal gait. 07:00 Musculoskeletal/extremity: Tenderness to the left hip without deformity, pulses, motor, sensation intact. Vital Signs: 05:37 BP 156 / 53; Pulse 72; Resp 18; Temp 98.2; Pulse Ox 100% ; Weight 90.72 kg; Height 5 rg5 ft. 5 in. ; Pain 10/10; 06:32 BP 163 / 83; Pulse 89; Resp 17; Temp 98; Pulse Ox 100% ; Pain 7/10; rg5 07:31 BP 158 / 82; Pulse 88; Resp 16; Pulse Ox 97% ; ko1 05:37 Body Mass Index 33.28 (90.72 kg, 165.1 cm) rg5 05:37 Pain Scale: Adult rg5 06:32 Pain Scale: Adult rg5 [place] Coma Score: 05:49 Eye Response: spontaneous(4). Motor Response: obeys commands(6). Verbal Response: rg5 oriented(5). Total: 15. MDM: 05:40 Patient medically screened. rt 07:14 Differential diagnosis: Fracture, dislocation, osteoarthritis. Data reviewed: vital rt signs, nurses notes, radiologic studies. I considered the following discharge prescriptions or medication management in the emergency department Medications were administered in the Emergency Department. See MAR. Independent interpretation of the following test(s) in the Emergency Department X-Ray: My interpretation is No fracture seen on interpretation of x-ray images. Care significantly affected by the following chronic conditions: Diabetes. Counseling: I had a detailed discussion with the patient and/or guardian regarding the historical points, exam findings, and any diagnostic results supporting the discharge/admit diagnosis, radiology results, the need for outpatient follow up. Response to treatment: the patient's symptoms have markedly improved after treatment, Able to ambulate with assistance. 05/29 05:46 Order name: Hip Left 2 View XRAY; Complete Time: 06:43 rt Administered Medications: 06:02 Drug: Robinson PO 10 mg-325 mg 1 tabs PO once Route: PO; rg5 06:54 Follow up: Response: Pain is decreased rg5 06:02 Drug: Ketorolac IM 15 mg IM once Route: IM; Site: right deltoid; rg5 06:53 Follow up: Response: Pain is decreased rg5 07:23 Drug: morphine IM 2 mg IM once Route: IM; Site: left deltoid; ko1 07:34 Follow up: Response: No adverse reaction; Medication administered at discharge. ko1 Disposition Summary: 05/29/24 07:11 Discharge Ordered Notes: Location: Home rt Problem: an ongoing problem rt Symptoms: have improved rt Condition: Stable rt Diagnosis - Osteoarthritis of left hip rt Followup: rt - With: Private Physician - When: 2 - 3 days - Reason: Discharge Instructions: - Discharge Summary Sheet rt - Osteoarthritis rt - Hip Pain rt Forms: - Medication Reconciliation Form rt - Antibiotic Education rt - Prescription Opioid Use rt - Patient Portal Instructions rt - Leadership Thank You Letter rt Prescriptions: - Miralax 17 gram Oral powder in packet - take 1 packet ORAL route daily for 8 doses as needed for constipation; 9 rt packet; Refills: 0, Product Selection Permitted - acetaminophen-codeine 300-30 mg Oral tablet - take 1 tablet ORAL route 4 times per day as needed for pain; 15 tablet; rt Refills: 0, Product Selection Permitted Signatures: Dispatcher [employer] Kim De La Cruz RN RN ko1 Gregorio Corea MD MD rt Maximo West RN RN rg5
[2024-05-29] MEDS ORDERED: MORPHINE 2 MG/ML SYR ONE (07:23)
[2024-05-29 07:51] VITALS: BP 158/82; TEMP 98; O2SAT 97
== END 2024-05-29 07:34 | disposition home or self-care (01) ==
LOC: ER 05:19
DX: M16.12 Unilateral primary osteoarthritis, left hip (principal)
CPT/HCPCS: 73502; 96372; 99284; J2270

== ENCOUNTER 2025-08-13 12:53 | Emergency (ER) | payer MEDICAID ==
[2025-08-13 14:40] LABS: Absolute Lymphocytes (CBC) 0.8 K/uL (0.7-4.9); Hematocrit 38.2 % (36.0-45.0); Hemoglobin 12.3 g/dL (12.0-15.0); MCH 27.8 pg (27.0-35.0); MCHC 32.3 g/dL (32.0-36.0); MCV 86.1 fL (80-100); MPV 8.4 fL (7.6-11.3); Nucleated RBC Absolute Count 0.0 (0-0); Nucleated Red Blood Cells % 0.0 % (0-0); RBC Red Blood Cell Count 4.44 M/uL (3.86-4.86); White Blood Count 9.70 thou/uL (4.3-10.9)
--- NOTE | 2025-08-13 14:53 | RAD REPORT ---
EXAMINATION: Hip Left 2 View CLINICAL INDICATION: Female, 85 years old. Pain;Swelling COMPARISON: 05/29/2024 FINDINGS: Status post left hip arthroplasty. No hardware complications. No acute fracture. No malalignment/dislocation. Mild left SI joint degenerative changes. Other: n/a IMPRESSION: No acute osseous abnormality. Intact left hip arthroplasty.
[2025-08-13 15:03] LABS: Albumin 2.9 g/dL (3.4-5.0); Albumin/Globulin Ratio 0.7 (1.1-1.8); Alkaline Phosphatase 68 U/L (45-117); Anion Gap 9.4 mEq/L (5.0-15.0); BUN Blood Urea Nitrogen 7 mg/dL (7-18); Globulin 4.3 g/dL (2.3-3.5); Glucose Level 101 mg/dL (74-106); Lipase 14 U/L (13-75)
[2025-08-13 15:05] LABS: ALT/SGPT < 14 U/L (13-56); AST/SGOT 19 U/L (15-37); Potassium 3.4 mEq/L (3.5-5.1)
[2025-08-13] MEDS ORDERED: NA CHLORIDE 0.9% 1,000 ML ONE (15:08)
[2025-08-13] MEDS ORDERED: ONDANSETRON 4 MG/2 ML VIAL ONE (15:08)
--- NOTE | 2025-08-13 16:11 | ER ---
Nurse's Notes [facility] Name: Harmony Rodriguez Age: 85 yrs Sex: Female : 1940 Arrival Date: 08/13/2025 Time: 12:53 Bed 25 Private MD: Diagnosis: Pain in left hip Presentation: 08/13 13:05 Chief complaint: Patient states: NAUSEA AND WEAKNESS X 1 MONTH AND LT HIP PAIN SINCE dd2 HER SURGERY IN OCTOBER. Coronavirus screen: At this time, the client does not indicate any symptoms associated with coronavirus-19. Ebola Screen: No symptoms or risks identified at this time. Initial Sepsis Screen: Does the patient meet any 2 criteria? No. Patient's initial sepsis screen is negative. Does the patient have a suspected source of infection? No. Patient's initial sepsis screen is negative. Risk Assessment: Do you want to hurt yourself or someone else? Patient reports no desire to harm self or others. Onset of symptoms is unknown. 13:05 Method Of Arrival: Wheelchair dd2 13:05 Acuity: NOEL 3 dd2 Triage Assessment: 13:10 General: Appears uncomfortable, Behavior is calm, cooperative, appropriate for age. dd2 Pain: Complains of pain in left hip Pain currently is 9 out of 10 on a pain scale. GI: Reports intolerance of food, nausea. 13:10 Musculoskeletal: Reports pain in left hip. dd2 Historical: - Allergies: 13:10 Codeine; dd2 13:10 PENICILLINS; dd2 13:10 Talwin; dd2 - PMHx: 13:10 LEFT BREAST CA; Diabetes - NIDDM; heart disease; Hypertension; dd2 - PSHx: 13:10 Partial left breast mastectomy; LT HIP REPLACEMENT 10/2024 (Partial left breast dd2 mastectomy); - Immunization history:: Adult Immunizations unknown. - Infectious Disease History:: Denies. - Social history:: Smoking status: Patient denies any tobacco usage or history of. Screenin:33 [facility] ED Fall Risk Assessment (Adult) History of falling in the last 3 months, jb4 including since admission No falls in past 3 months (0 pts) Confusion or Disorientation No (0 pts) Intoxicated or Sedated No (0 pts) Impaired Gait Yes (1 pt) Mobility Assist Device Used No (0 pt) Altered Elimination No (0 pt) Score/Fall Risk Level 0 - 2 = Low Risk Oriented to surroundings, Maintained a safe environment. Abuse screen: Denies threats or abuse. Nutritional screening: No deficits noted. Tuberculosis screening: No symptoms or risk factors identified. Assessment: 15:33 General: Appears in no apparent distress. comfortable, Behavior is calm, cooperative, jb4 appropriate for age. Pain: Complains of pain in left hip Pain does not radiate. Pain currently is 9 out of 10 on a pain scale. Neuro: Level of Consciousness is awake, alert, obeys commands, Oriented to person, place, time, situation. Cardiovascular: Patient's skin is warm and dry. Respiratory: Airway is patent Respiratory effort is even, unlabored, Respiratory pattern is regular, symmetrical. GI: Abdomen is flat, non-distended, Reports nausea, Patient currently denies constipation, cramping, diarrhea, vomiting. Derm: Skin is intact, Skin is pink, warm \T\ dry. Musculoskeletal: Circulation, motion, and sensation intact. Range of motion: intact in all extremities. Vital Signs: 13:05 BP 162 / 56; Pulse 90; Resp 16; Temp 97.8; Pulse Ox 100% on R/A; Weight 86.18 kg; Pain dd2 9/10; 15:33 BP 147 / 53; Pulse 83; Resp 16; Pulse Ox 100% on R/A; jb4 13:05 Pain Scale: Adult dd2 ED Course: 13:00 Patient arrived in ED. cj3 13:01 Elias Hamm [facility]C [facility]. dr5 13:01 Blessing Sylvester MD is Attending Physician. dr5 13:10 Triage completed. dd2 13:10 Arm band placed on right wrist. dd2 14:35 Initial lab(s) drawn, by [facility], sent to lab. Inserted saline lock: 20 gauge in left ts3 antecubital area, using aseptic technique. Blood collected. Flushed with 10 mL NS. 14:46 Hip Left 2 View XRAY In Process Unspecified. EDMS 15:32 Jerome Sam, RN is Primary Nurse. jb4 15:33 Patient has correct armband on for positive identification. Bed in low position. Call jb4 light in reach. Side rails up X 1. Provided Education on: plan of care. 15:33 No provider procedures requiring assistance completed. jb4 16:08 Ethan Ellis MD is Referral Physician. dr5 16:08 Dallin Gutierrez MD is Referral Physician. dr5 16:08 Juan Antonio Brand MD is Referral Physician. dr5 16:08 Esteban Cronin MD is Referral Physician. dr5 16:40 IV discontinued, intact, bleeding controlled, No redness/swelling at site. Pressure jb4 dressing applied. Administered Medications: 15:15 Drug: Ondansetron IVP 4 mg IVP once; over 2 minutes Route: IVP; Site: left antecubital; jb4 15:45 Follow up: Response: No adverse reaction; Marked relief of symptoms; Nausea is decreasedjb4 15:15 Drug: NS 0.9% IV 1000 ml IV at 1 bolus Per protocol; to be given as a bolus over 60 jb4 minutes Route: IV; Rate: 1 bolus; Site: left antecubital; 16:40 Follow up: Response: No adverse reaction; IV Status: Pt discharged; IV Intake: 900ml jb4 Medication: 15:33 VIS not applicable for this client. jb4 Intake: 16:40 IV: 900ml; Total: 900ml. jb4 Outcome: 16:08 Discharge ordered by MD. dr5 16:40 Discharged to home via wheelchair, with family, jb4 16:40 Condition: stable 16:40 Discharge instructions given to patient, family, Instructed on discharge instructions, follow up and referral plans. medication usage, Demonstrated understanding of instructions, follow-up care, medications, Prescriptions given X 4, 17:03 Patient left the ED. jb4 Signatures: Dispatcher [employer] EDMS Jerome Sam RN RN jb4 RUPA SANCHEZ RN RN dd2 Elias Hamm, NESHA-C MAILROOM ASSOCIATE-5 Montserrat Dixon 3 Rosangela Reed 3
--- NOTE | 2025-08-13 16:11 | EDPHYS ---
Physician Documentation [facility] Name: Harmony Rodriguez Age: 85 yrs Sex: Female : 1940 Arrival Date: 08/13/2025 Time: 12:53 Bed 25 Private MD: ED Physician Blessing Sylvester HPI: 08/13 19:21 This 85 yrs old Black Female presents to ER via Wheelchair with complaints of Nausea, dr5 Hip Pain - LT. 19:21 The patient presents to the emergency department with nausea, vomiting. Onset: The dr5 symptoms/episode began/occurred 1 month(s) ago. Patient is an 85-year-old female with history of left breast cancer, diabetes, heart disease, hypertension coming in with left hip pain has been going on since last October from her arthroplasty and fatigue for the past 1 month. Patient reports she had some nausea and vomiting today. Patient states that she does not have an orthopedic in [facility] and has to drive to [place] for follow-up and does not feel comfortable driving to [place] given her age and her 's age.. Historical: - Allergies: 13:10 Codeine; dd2 13:10 PENICILLINS; dd2 13:10 Talwin; dd2 - PMHx: 13:10 LEFT BREAST CA; Diabetes - NIDDM; heart disease; Hypertension; dd2 - PSHx: 13:10 Partial left breast mastectomy; LT HIP REPLACEMENT 10/2024 (Partial left breast dd2 mastectomy); - Immunization history:: Adult Immunizations unknown. - Infectious Disease History:: Denies. - Social history:: Smoking status: Patient denies any tobacco usage or history of. ROS: 19:21 Constitutional: as per hpi dr5 Exam: 19:21 Constitutional: This is a well developed, well nourished patient who is awake, alert, dr5 and in no acute distress. Head/Face: Normocephalic, atraumatic. Eyes: Pupils equal round and reactive to light, extra-ocular motions intact. Lids and lashes normal. Conjunctiva and sclera are non-icteric and not injected. Cornea within normal limits. Periorbital areas with no swelling, redness, or edema. Neck: Trachea midline, no thyromegaly or masses palpated, and no cervical lymphadenopathy. Supple, full range of motion without nuchal rigidity, or vertebral point tenderness. No Meningismus. Chest/axilla: Normal chest wall appearance and motion. Nontender with no deformity. No lesions are appreciated. Cardiovascular: Regular rate and rhythm with a normal S1 and S2. Normal PMI, no JVD. No pulse deficits. Respiratory: Lungs have equal breath sounds bilaterally, clear to auscultation. No rales, rhonchi or wheezes noted. No increased work of breathing, no retractions or nasal flaring. Abdomen/GI: Soft, non-tender, non-distended Back: No spinal tenderness. No costovertebral tenderness. Full range of motion. Skin: Warm, dry with normal turgor. Normal color with no rashes, no lesions, and no evidence of cellulitis. MS/ Extremity: Pulses equal, no cyanosis. Neurovascular intact. Full, normal range of motion. Neuro: Awake and alert, GCS 15, oriented to person, place, time, and situation. Cranial nerves II-XII grossly intact. Motor strength 5/5 in all extremities. Sensory grossly intact. Cerebellar exam normal. Normal gait. Vital Signs: 13:05 BP 162 / 56; Pulse 90; Resp 16; Temp 97.8; Pulse Ox 100% on R/A; Weight 86.18 kg; Pain dd2 9/10; 15:33 BP 147 / 53; Pulse 83; Resp 16; Pulse Ox 100% on R/A; jb4 13:05 Pain Scale: Adult dd2 MDM: 13:01 Medical Screening Exam initiated dr5 19:21 Differential diagnosis: Nonspecific abd pain, Osteoarthritis, Dehydration, TR. Data dr5 reviewed: vital signs, nurses notes, lab test result(s), amylase and lipase, CBC, white blood cell count, hemoglobin, hematocrit, platelets, electrolytes, sodium, potassium, chloride, serum bicarbonate, BUN, creatinine, serum glucose, radiologic studies, plain films. Consideration of Admission/Observation Escalation of care including admission/observation considered. Escalation considered if patient found to have hip fracture. I considered the following discharge prescriptions or medication management in the emergency department I discussed and recommended Over The Counter medications, Medications were administered in the Emergency Department. See MAR. Independent interpretation of the following test(s) in the Emergency Department X-Ray: My interpretation is Independent trepidation of x-ray does not reveal fracture. Care significantly affected by the following chronic conditions: Diabetes, Hypertension. Care significantly affected by the following Social Determinants of Health: Poor access to healthcare and/or lack of insurance, Poor access to transportation, Problems related to employment. Counseling: I had a detailed discussion with the patient and/or guardian regarding the historical points, exam findings, and any diagnostic results supporting the discharge/admit diagnosis, the presence of at least one elevated blood pressure reading (>120/80) during this emergency department visit, lab results, radiology results, the need for outpatient follow up, for definitive care, a family practitioner, a orthopedic surgeon, to return to the emergency department if symptoms worsen or persist or if there are any questions or concerns that arise at home. Medication response: Normal saline. Response to treatment: the patient's symptoms have markedly improved after treatment. Special discussion: I discussed with the patient/guardian in detail that at this point there is no indication for admission to the hospital. It is understood, however, that if the symptoms persist or worsen the patient needs to return immediately for re-evaluation. Based on the history and exam findings, there is no indication for further emergent testing or inpatient evaluation. I discussed with the patient/guardian the need to see the primary care provider for further evaluation of the symptoms. 19:28 ED course: Gave patient names of orthopedics that she should see that are closer. All dr5 results printed and given to patient. I even made a CD for patient to take with her. Recommended increase hydration, alternate Tylenol Motrin as needed for pain and fever. All questions answered. Strict ER precautions given. 08/13 13:10 Order name: CBC with Diff; Complete Time: 15:23 dr5 08/13 13:10 Order name: CMP; Complete Time: 15: dr5 08/13 13:10 Order name: Lipase; Complete Time: 15:23 dr5 08/13 13:10 Order name: Hip Left 2 View XRAY; Complete Time: 15:23 dr5 08/13 13:10 Order name: IV Saline Lock; Complete Time: 14:35 dr5 08/13 13:10 Order name: Labs collected and sent; Complete Time: 14:35 dr5 Administered Medications: 15:15 Drug: Ondansetron IVP 4 mg IVP once; over 2 minutes Route: IVP; Site: left antecubital; jb4 15:45 Follow up: Response: No adverse reaction; Marked relief of symptoms; Nausea is decreasedjb4 15:15 Drug: NS 0.9% IV 1000 ml IV at 1 bolus Per protocol; to be given as a bolus over 60 jb4 minutes Route: IV; Rate: 1 bolus; Site: left antecubital; 16:40 Follow up: Response: No adverse reaction; IV Status: Pt discharged; IV Intake: 900ml jb4 Disposition Summary: 08/13/25 16:08 Discharge Ordered Notes: Location: Home dr5 Condition: Stable dr5 Diagnosis - Pain in left hip dr5 Followup: dr5 - With: Emergency Department - When: As needed - Reason: Worsening of condition Followup: dr5 - With: Ethan Ellis MD - When: 1 - 2 days - Reason: Recheck today's complaints, Continuance of care, Re-evaluation by your physician Followup: dr5 - With: Dallin Gutierrez MD - When: 1 - 2 days - Reason: Recheck today's complaints, Continuance of care, Re-evaluation by your physician Followup: dr5 - With: Juan Antonio Brand MD - When: 1 - 2 days - Reason: Recheck today's complaints, Continuance of care, Re-evaluation by your physician Followup: dr5 - With: Esteban Cronin MD - When: 1 - 2 days - Reason: Recheck today's complaints, Continuance of care, Re-evaluation by your physician Discharge Instructions: - Discharge Summary Sheet dr5 - Gastroesophageal Reflux Disease, Adult dr5 - Hip Pain dr5 Forms: - Medication Reconciliation Form dr5 - Patient Portal Instructions dr5 - Leadership Thank You Letter dr5 Prescriptions: - Ibuprofen 800 mg Oral Tablet - take 1 tablet ORAL route every 12 hours As needed take with food; 20 tablet; dr5 Refills: 0, Product Selection Permitted - Protonix 40 mg Oral Tablet - take 1 tablet ORAL route once daily; 30 tablet; Refills: 0, Product Selection dr5 Permitted - Zofran 4 mg Oral Tablet - take 1 tablet ORAL route every 12 hours As needed; 20 tablet; Refills: 0, dr5 Product Selection Permitted - Medrol (Dominic) 4 mg Oral Tablets, Dose Pack - take 1 tablet ORAL route as directed - follow package instructions; 1 packet; dr5 Refills: 0, Product Selection Permitted Signatures: Dispatcher [employer] Jerome Keating RN RN jb4 RUPA SANCHEZ RN RN dd2 Elias Hamm, NESHA-C ART DIRECTOR-5
[2025-08-13 17:14] VITALS: TEMP 97.8; O2SAT 100
[2025-08-13 17:16] VITALS: BP 147/53
== END 2025-08-13 17:03 | disposition home or self-care (01) ==
LOC: ER 12:53
DX: M25.552 Pain in left hip (principal); R11.2 Nausea with vomiting, unspecified; Z96.642 Presence of left artificial hip joint
CPT/HCPCS: 96361; 85025; 36415; 83690; 80053; 73502; 96374; 99284; J2405; J7030